=== PATIENT | female | born 1980 | race Caucasian/White ===

== ENCOUNTER 2016-05-12 21:59 | Emergency (ER) | payer MEDICAID ==
[2016-05-12] MEDS ORDERED: Promethazine 25 MG/ML SDV IM ONE (22:27)
[2016-05-12] MEDS ORDERED: Ketorolac 30 MG/ML SDV IM ONE (22:27)
[2016-05-12] MEDS ORDERED: Ketorolac 30 MG/ML SDV ONE (22:32)
--- NOTE | 2016-05-12 22:35 | EDM.PDOC ---
ED HPI GENERAL MEDICAL PROBLEM - General Chief Complaint: Headache Stated Complaint: MIGRAINE Time Seen by Provider: 05/12/16 22:10 Source of Information: Reports: Patient History Limitations: Reports: No limitations - History of Present Illness INITIAL COMMENTS - FREE TEXT/NARRATIVE: According to patient , she has had an attack of migraine for past 24 hrs started last evening, asso with severe photophobia and nausea. No vomiting. Pt is on topamax 100mg daily for prophylaxis. She has taken Ibuprofen and some left over vicodin at 6 pm today with no relief. no blurry vision. No ringing in the ears. No weakness . Onset Date: 05/11/16 Location: Reports: head Quality: Reports: Ache Severity: severe Improves with: Reports: None Worsens with: Reports: None Associated Symptoms: Reports: headaches, nausea/vomiting. Denies: confusion, chest pain, cough, diaphoresis, fever/chills, rash, seizure, shortness of breath , syncope, weakness - Related Data Allergies Allergy/AdvReac Type Severity Reaction Status Date / Time No Known Allergies Allergy Verified 05/12/16 22:13 Home Meds: Home Meds Citalopram [Citalopram HBr] 20 mg PO DAILY 05/21/15 [History] Omeprazole [Prilosec] 20 mg PO DAILY 05/21/15 [History] Topiramate [Topamax] 100 mg PO DAILY 05/21/15 [History] Past Medical History Cardiovascular History: Reports: Aneurysm Gastrointestinal History: Reports: GERD Genitourinary History: Reports: Renal calculus, UTI, recurrent 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: Neurological History: Reports: Cerebral aneurysms, CVA, Migraines, Other (see below) Other Neuro History: 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 Psychiatric History: Reports: Anxiety, Depression - Infectious Disease History Infectious Disease History: Reports: Chicken pox - Past Surgical History HEENT Surgical History: Reports: Other (see below) Other HEENT Surgeries/Procedures: Aneurysm coil GI Surgical History: Reports: None Female Surgical History: Reports: Hysterectomy, Lithotripsy/ESWL - Past Imaging History Past Imaging History: Reports: Other (see below) (last MRI was 6 mos ago) Social & Family History - Family History Family Medical History: Noncontributory - Tobacco Use Smoking Status *Q: Current Every Day Smoker Years of Tobacco use: 15 Packs/Tins Daily: 1 Used Tobacco, but Quit: No Second Hand Smoke Exposure: Yes - Caffeine Use Caffeine Use: Reports: Coffee, Soda Caffeine Use Comment: usually drinks two cups per day. - Alcohol Use Date of Last Drink: 04/24/16 - Recreational Drug Use Recreational Drug Use: No ED ROS GENERAL - Review of Systems Review Of Systems: See Below Constitutional: Denies: fever, chills HEENT: Denies: Sinus problem, Throat pain, Vision change Respiratory: Denies: Shortness of Breath, Cough, Sputum Cardiovascular: Denies: Chest pain, Lightheadedness Endocrine: Denies: fatigue GI/Abdominal: Reports: Nausea. Denies: Abdominal pain, Vomiting : Denies: discharge, dysuria Musculoskeletal: Denies: joint pain, joint swelling Skin: Denies: pruritis, rash Neurological: Reports: Headache. Denies: Confusion, Dizziness, Syncope, Tingling Psychiatric: Denies: Agitation, Anxiety, Confusion, Cravings ED EXAM, GENERAL - Physical Exam Exam: See Below Exam Limited By: No limitations General Appearance: alert, WD/WN, no apparent distress Eye Exam: bilateral eye: EOMI, PERRL Ears: normal external exam, normal canal, hearing grossly normal, normal TMs Ear Exam: bilateral ear: auricle normal, canal normal, TM normal Nose: normal inspection, normal mucosa, no blood Throat/Mouth: Normal inspection, Normal lips, Normal teeth, Normal gums, Normal oropharynx, Normal voice, No airway compromise Head: atraumatic, normocephalic Neck: normal inspection, supple, non-tender, full range of motion Respiratory/Chest: no respiratory distress, lungs clear, normal breath sounds, no accessory muscle use, chest non-tender Cardiovascular: normal peripheral pulses, regular rate, rhythm, no edema, no gallop, no JVD, no murmur, no rub Neurological: alert, oriented, CN II-XII intact, normal cognition, normal gait, normal reflexes, no motor/sensory deficits Psychiatric: normal affect, normal mood Skin Exam: Warm, Intact Course - Vital Signs Text/Narrative:: Pt does have chronic migraine with acute episodes. She did receive toradol 30mg with phenergan 25mg IM in the emergency room. Pt advised to go home and sleep in dark quiet room and the headache should gradually improve. If not better in 4 -6 hrs advised to return to emergency room or followup with her primary care provider in the clinic in [place]. - Orders/Labs/Meds Orders: Active Orders 24 hr Category Date Time Status Ketorolac [Toradol] Med 05/12/16 22:27 Once 30 mg IM ONETIME ONE Promethazine [Phenergan] Med 05/12/16 22:27 Once 25 mg IM ONETIME ONE Departure - Departure Time of Disposition: 10:40 Disposition: Home, Self-Care 01 Condition: fair Clinical Impression: Migraine Forms: ED Department Discharge - Problem List & Annotations (1) Migraine SNOMED Code(s): 34247353 Code(s): G43.909 - MIGRAINE, UNSP, NOT INTRACTABLE, WITHOUT STATUS MIGRAINOSUS Status: Acute Current Visit: No - Problem List Review Problem List Initiated/Reviewed/Updated: Yes - My Orders Last 24 Hours: My Active Orders 05/12/16 22:27 Ketorolac [Toradol] 30 mg IM ONETIME ONE Promethazine [Phenergan] 25 mg IM ONETIME ONE - Assessment/Plan Last 24 Hours: My Active Orders 05/12/16 22:27 Ketorolac [Toradol] 30 mg IM ONETIME ONE Promethazine [Phenergan] 25 mg IM ONETIME ONE Assessment:: Acute migraine attack Plan: Pt does have chronic migraine with acute episodes. She did receive toradol 30mg with phenergan 25mg IM in the emergency room. Pt advised to go home and sleep in dark quiet room and the headache should gradually improve. If not better in 4 -6 hrs advised to return to emergency room or followup with her primary care provider in the clinic in [place].
[2016-05-13 02:21] VITALS: BP 155/101
== END 2016-05-12 22:45 | disposition home or self-care (01) ==
LOC: LB.ED 21:59
DX: G43.909 Migraine, unspecified, not intractable, without status migrainosus (principal); K21.9 Gastro-esophageal reflux disease without esophagitis; F41.9 Anxiety disorder, unspecified; F32.9 Major depressive disorder, single episode, unspecified; F17.210 Nicotine dependence, cigarettes, uncomplicated; Z87.440 Personal history of urinary (tract) infections; Z86.73 Personal history of transient ischemic attack (TIA), and cerebral infarction without residual deficits; Z90.710 Acquired absence of both cervix and uterus
CPT/HCPCS: 96372; 99283; J1885; J2550

== ENCOUNTER 2016-07-03 20:36 | Emergency (ER) | payer MEDICAID ==
[2016-07-03] MEDS ORDERED: Ketorolac 60 MG/2 ML SDV IM ONE (20:50)
[2016-07-03] MEDS ORDERED: Acetaminophen/HYDROcodone 325-5 MG Tab ONE ×2 (21:00→21:33)
[2016-07-03] MEDS ORDERED: Tamsulosin 0.4 MG Cap.ER PO ONE (21:13)
[2016-07-03] MEDS ORDERED: HYDROmorphone 2 MG/ML Syringe ONE (21:13)
[2016-07-03] MEDS ORDERED: HYDROmorphone 2 MG/ML Syringe IM ONE (21:15)
[2016-07-03] MEDS ORDERED: Tamsulosin 0.4 MG Cap.ER ONE (21:15)
--- NOTE | 2016-07-03 21:19 | EDM.PDOC ---
ED HPI GENERAL MEDICAL PROBLEM - General Stated Complaint: Kidney Stone Time Seen by Provider: 07/03/16 20:45 Source of Information: Reports: Patient History Limitations: Reports: No limitations - History of Present Illness INITIAL COMMENTS - FREE TEXT/NARRATIVE: According to patient she has been having left sided flank pain since yesterday evening. Pain was of sudden onset. Pain comes and goes and has move slightly form the left loin into anterior abdomen. No nausea or vomiting. Pt edmondson have medullary sponge kidney disease and has recurrent stones. she did have Ct abdomen in Feb, which showed right renal stone 5mm in size then. No fever or chills. No blood in the urine. No other complaints. she did take toradol 10mg today earlier and pain has not resolved. Onset: sudden Onset Date: 07/02/16 Duration: Waxing/waning Location: Reports: back Quality: Reports: Ache Severity: moderate Improves with: Reports: None Worsens with: Reports: None Associated Symptoms: Denies: confusion, chest pain, cough, diaphoresis, fever/ chills, headaches, nausea/vomiting, seizure, shortness of breath, syncope, weakness Treatments TALLOW REFINER: Reports: Other medication(s) Other Treatments TALLOW REFINER: took a toradol - Related Data Allergies Allergy/AdvReac Type Severity Reaction Status Date / Time No Known Allergies Allergy Verified 05/12/16 22:13 Home Meds: Home Meds Citalopram [Citalopram HBr] 20 mg PO DAILY 05/21/15 [History] Omeprazole [Prilosec] 20 mg PO DAILY 05/21/15 [History] Topiramate [Topamax] 100 mg PO DAILY 05/21/15 [History] Past Medical History Cardiovascular History: Reports: Aneurysm Gastrointestinal History: Reports: GERD Genitourinary History: Reports: Renal calculus, UTI, recurrent 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: Neurological History: Reports: Cerebral aneurysms, CVA, Migraines, Other (see below) Other Neuro History: 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 Psychiatric History: Reports: Anxiety, Depression - Infectious Disease History Infectious Disease History: Reports: Chicken pox - Past Surgical History HEENT Surgical History: Reports: Other (see below) Other HEENT Surgeries/Procedures: Aneurysm coil GI Surgical History: Reports: None Female Surgical History: Reports: Hysterectomy, Lithotripsy/ESWL - Past Imaging History Past Imaging History: Reports: Other (see below) (last MRI was 6 mos ago) Social & Family History - Family History Family Medical History: Noncontributory - Tobacco Use Smoking Status *Q: Current Every Day Smoker Years of Tobacco use: 15 Packs/Tins Daily: 1 Used Tobacco, but Quit: No Second Hand Smoke Exposure: Yes - Caffeine Use Caffeine Use: Reports: Coffee, Soda Caffeine Use Comment: usually drinks two cups per day. - Recreational Drug Use Recreational Drug Use: No ED ROS GENERAL - Review of Systems Review Of Systems: See Below Constitutional: Denies: fever, chills, weakness HEENT: Denies: Ear pain, Hearing loss, Throat pain Respiratory: Denies: Cough, Sputum Cardiovascular: Denies: Chest pain, Lightheadedness GI/Abdominal: Denies: Abdominal pain, Anorexia, Nausea, Vomiting : Reports: frequency. Denies: dysuria, flank pain, hematuria Musculoskeletal: Denies: shoulder pain, joint pain, joint swelling Skin: Denies: pruritis, rash ED EXAM, GENERAL - Physical Exam Exam: See Below Exam Limited By: No limitations General Appearance: alert, WD/WN, mild distress Eye Exam: bilateral eye: EOMI, PERRL Ears: normal external exam, normal canal, hearing grossly normal, normal TMs Ear Exam: bilateral ear: auricle normal, canal normal, TM normal Nose: normal inspection, normal mucosa, no blood Throat/Mouth: Normal inspection, Normal lips, Normal teeth, Normal gums, Normal oropharynx, Normal voice, No airway compromise Head: atraumatic, normocephalic Neck: normal inspection, supple, non-tender, full range of motion Respiratory/Chest: no respiratory distress, lungs clear, normal breath sounds, no accessory muscle use, chest non-tender Cardiovascular: normal peripheral pulses, regular rate, rhythm, no edema, no gallop, no JVD, no murmur, no rub Peripheral Pulses: 2+: radial (R), femoral (L) GI/Abdominal: Normal Bowel Sounds, Soft, Non-Tender, No Organomegaly, No Distention, No Abnormal Bruit, No Mass Back Exam: CVA tenderness (L) Skin Exam: Warm, Dry, Intact, Normal color, No rash Course - Vital Signs Text/Narrative:: Pt does have history of recurrent episode of passing renal stones. she has had 3 CT abdomen in the past, with recent being in Feb which did show 5mm seen on left side. Hence I have not repeated CT KUB today. UA does show trace blood and 5 RBC.She did received toradol 60mg IM and Dilaudid 1mg and flomax 0.4 mg in the emergency room. her pain did improve to 6/10. She is not in acute distress at this point. Hence she has been discharge home on toradol 10mg and to alternate with vicodin every 4 hrs. flomax 0.4 mg daily. If pain not better in 24 hrs advised to followup in the clinic to make sure she is not having obstructive uropathy. - Orders/Labs/Meds Orders: Active Orders 24 hr Category Date Time Status UA W/MICROSCOPIC [URIN] Stat Lab 07/03/16 20:56 Ordered HYDROmorphone [Dilaudid] Med 07/03/16 21:15 Once 1 mg IM ONETIME ONE Tamsulosin [Flomax] Med 07/03/16 21:13 Once 0.4 mg PO ONETIME ONE Medication Orders Hydromorphone HCl (Dilaudid) 1 mg IM ONETIME ONE Stop: 07/03/16 21:16 Tamsulosin HCl (Flomax) 0.4 mg PO ONETIME ONE Stop: 07/03/16 21:14 Meds: Medications Generic Name Dose Route Start Last Admin Trade Name Freq PRN Reason Stop Dose Admin Hydromorphone HCl 1 mg 07/03/16 21:15 Dilaudid IM 07/03/16 21:16 ONETIME ONE Tamsulosin HCl 0.4 mg 07/03/16 21:13 Flomax PO 07/03/16 21:14 ONETIME ONE Discontinued Medications Generic Name Dose Route Start Last Admin Trade Name Freq PRN Reason Stop Dose Admin Ketorolac Tromethamine 60 mg 07/03/16 20:50 07/03/16 20:50 Toradol IM 07/03/16 20:51 60 mg ONETIME ONE Administration Departure - Departure Time of Disposition: 21:30 Disposition: Home, Self-Care 01 Clinical Impression: Ureteric colic - Discharge Information - Problem List & Annotations (1) Ureteric colic SNOMED Code(s): 63505922 Code(s): N23 - UNSPECIFIED RENAL COLIC Status: Acute Current Visit: Yes - Problem List Review Problem List Initiated/Reviewed/Updated: Yes - My Orders Last 24 Hours: My Active Orders 07/03/16 20:56 UA W/MICROSCOPIC [URIN] Stat 07/03/16 21:13 Tamsulosin [Flomax] 0.4 mg PO ONETIME ONE 07/03/16 21:15 HYDROmorphone [Dilaudid] 1 mg IM ONETIME ONE - Assessment/Plan Last 24 Hours: My Active Orders 07/03/16 20:56 UA W/MICROSCOPIC [URIN] Stat 07/03/16 21:13 Tamsulosin [Flomax] 0.4 mg PO ONETIME ONE 07/03/16 21:15 HYDROmorphone [Dilaudid] 1 mg IM ONETIME ONE Assessment:: Ureteric Colic left sided Plan: Pt does have history of recurrent episode of passing renal stones. she has had 3 CT abdomen in the past, with recent being in Feb which did show 5mm seen on left side. Hence I have not repeated CT KUB today. UA does show trace blood and 5 RBC.She did received toradol 60mg IM and Dilaudid 1mg and flomax 0.4 mg in the emergency room. her pain did improve to 6/10. She is not in acute distress at this point. Hence she has been discharge home on toradol 10mg and to alternate with vicodin every 4 hrs. flomax 0.4 mg daily. If pain not better in 24 hrs advised to followup in the clinic to make sure she is not having obstructive uropathy.
[2016-07-03 22:31] VITALS: BP 127/83
== END 2016-07-03 21:40 | disposition home or self-care (01) ==
LOC: LB.ED 20:36
DX: N23 Unspecified renal colic (principal); K21.9 Gastro-esophageal reflux disease without esophagitis; F41.9 Anxiety disorder, unspecified; F32.9 Major depressive disorder, single episode, unspecified; F17.210 Nicotine dependence, cigarettes, uncomplicated; Z90.710 Acquired absence of both cervix and uterus
CPT/HCPCS: 81001; 96372; 99284; A9270; J1170; J1885

== ENCOUNTER 2016-07-30 17:54 | Emergency (ER) | payer MEDICAID ==
[2016-07-30 18:05] VITALS: BP 129/75
[2016-07-30] MEDS ORDERED: HYDROmorphone 2 MG/ML Syringe IM ONE (18:16)
[2016-07-30] MEDS ORDERED: Promethazine 25 MG/ML SDV IM ONE (18:17)
[2016-07-30] MEDS ORDERED: HYDROmorphone 2 MG/ML Syringe ONE (18:19)
[2016-07-30] MEDS ORDERED: Promethazine 25 MG/ML SDV ONE (18:20)
--- NOTE | 2016-07-31 08:20 | EDM.PDOC ---
ED HPI GENERAL MEDICAL PROBLEM - General Chief Complaint: General Stated Complaint: MIGRAINE Time Seen by Provider: 07/30/16 18:00 Source of Information: Reports: Patient History Limitations: Reports: No Limitations - History of Present Illness INITIAL COMMENTS - FREE TEXT/NARRATIVE: Pt has history of chronic migraine headache and she has been under care of the neurologist in [place], [place]. Recently her Topamax has been increased and has less frequent episodes of headache.She claims she has been having throbbing right frontal headache since friday, which has gradually got worse. Rates her headache at 9/10. Has been nauseous, but no vomiting. + photophobia and phonophobia, waited to see if it would get better, and has not. No tunnel vision. No weakness. Treatments INTERFACE DESIGNER: Reports: NSAIDS migraine Pain Score (Numeric/FACES): 8 - Related Data Allergies Allergy/AdvReac Type Severity Reaction Status Date / Time No Known Allergies Allergy Verified 07/30/16 18:04 Home Meds: Home Meds Citalopram [Citalopram HBr] 20 mg PO DAILY 05/21/15 [History] Omeprazole [Prilosec] 20 mg PO DAILY 05/21/15 [History] Topiramate [Topamax] 100 mg PO DAILY 05/21/15 [History] Methylphenidate [Ritalin] 20 mg PO DAILY 07/17/16 [History] Past Medical History Cardiovascular History: Reports: Aneurysm Gastrointestinal History: Reports: GERD Genitourinary History: Reports: Renal Calculus, UTI, Recurrent 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: Neurological History: Reports: Cerebral Aneurysms, CVA, Migraines, Other (See Below) Other Neuro History: 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 Psychiatric History: Reports: Anxiety, Depression - Infectious Disease History Infectious Disease History: Reports: Chicken Pox - Past Surgical History HEENT Surgical History: Reports: Other (See Below) - Past Imaging History Past Imaging History: Reports: Other (See Below) Social & Family History - Family History Family Medical History: Noncontributory - Tobacco Use Smoking Status *Q: Current Every Day Smoker Years of Tobacco use: 15 Packs/Tins Daily: 1 Used Tobacco, but Quit: No Second Hand Smoke Exposure: Yes - Caffeine Use Caffeine Use: Reports: Coffee, Soda Caffeine Use Comment: usually drinks two cups per day. - Recreational Drug Use Recreational Drug Use: No ED ROS GENERAL - Review of Systems Review Of Systems: See Below Constitutional: Denies: Fever, Chills, Diaphoresis HEENT: Denies: Rhinitis, Sinus Problem, Throat Pain, Vision Change Respiratory: Denies: Cough, Sputum Cardiovascular: Denies: Chest Pain, Lightheadedness Endocrine: Denies: Fatigue, High Glucose GI/Abdominal: Reports: Nausea, Vomiting. Denies: Abdominal Pain : Denies: Dysuria, Flank Pain Musculoskeletal: Denies: Joint Pain, Joint Swelling Skin: Denies: Pruritis, Rash Neurological: Reports: Dizziness, Headache, Seizure. Denies: Confusion ED EXAM, GENERAL - Physical Exam Exam: See Below Exam Limited By: No Limitations General Appearance: Alert, WD/WN, Mild Distress Eye Exam: Bilateral Eye: EOMI, PERRL Ears: Normal External Exam, Normal Canal, Hearing Grossly Normal, Normal TMs Ear Exam: Bilateral Ear: Auricle Normal, Canal Normal, TM normal Nose: Normal Inspection, Normal Mucosa, No Blood Throat/Mouth: Normal Inspection, Normal Lips, Normal Teeth, Normal Gums, Normal Oropharynx, Normal Voice, No Airway Compromise Head: Atraumatic, Normocephalic Neck: Normal Inspection, Supple, Non-Tender, Full Range of Motion Respiratory/Chest: No Respiratory Distress, Lungs Clear, Normal Breath Sounds, No Accessory Muscle Use, Chest Non-Tender Cardiovascular: Normal Peripheral Pulses, Regular Rate, Rhythm, No Edema, No Gallop, No JVD, No Murmur, No Rub Neurological: Alert, Oriented, CN II-XII Intact, Normal Cognition, Normal Gait, Normal Reflexes, No Motor/Sensory Deficits Psychiatric: Normal Affect, Normal Mood Course - Vital Signs Text/Narrative:: Pt has had chronic migraine under Neurologist care of Dr. Blackmon. Still having her meds titrated. She did receive dilaudid 2mg and phenergan 25mg Im in the emergency room. Advised to go home and rest. If symptoms worsen return to emergency room other thakkar followup with Dr. Blackmon. Pt does have appointment in 1 month. Last Recorded V/S: Last Vital Signs Temp 99.2 F 07/30/16 17:59 Pulse 78 07/30/16 17:59 Resp 16 07/30/16 17:59 BP 129/75 07/30/16 17:59 Pulse Ox 99 07/30/16 17:59 - Orders/Labs/Meds Meds: Medications Discontinued Medications Generic Name Dose Route Start Last Admin Trade Name Bharati PRN Reason Stop Dose Admin Hydromorphone HCl 2 mg 07/30/16 18:16 07/30/16 18:24 Dilaudid IM 07/30/16 18:17 2 mg ONETIME ONE Administration Hydromorphone HCl Confirm 07/30/16 18:19 Dilaudid Administered 07/30/16 18:20 Dose 2 mg .ROUTE .STK-MED ONE Promethazine HCl 25 mg 07/30/16 18:17 07/30/16 18:24 Phenergan IM 07/30/16 18:18 25 mg ONETIME ONE Administration Promethazine HCl Confirm 07/30/16 18:20 Phenergan Administered 07/30/16 18:21 Dose 25 mg .ROUTE .STK-MED ONE Departure - Departure Time of Disposition: 18:45 Disposition: Home, Self-Care 01 Condition: good Clinical Impression: Acute onset aura migraine - Discharge Information Referrals: PCP,None [Primary Care Provider] - Forms: ED Department Discharge Additional Instructions: Followup with your neurologist in August, you should have an appointment. - Problem List & Annotations (1) Acute onset aura migraine SNOMED Code(s): 7125867 Code(s): G43.109 - MIGRAINE WITH AURA, NOT INTRACTABLE, W/O STATUS MIGRAINOSUS Status: Acute - Problem List Review Problem List Initiated/Reviewed/Updated: Yes - Assessment/Plan Assessment:: Acute migraine Plan: Pt has had chronic migraine under Neurologist care of Dr. Blackmon. Still having her meds titrated. She did receive dilaudid 2mg and phenergan 25mg Im in the emergency room. Advised to go home and rest. If symptoms worsen return to emergency room other thakkar followup with Dr. Blackmon. Pt does have appointment in 1 month.
== END 2016-07-30 18:27 | disposition home or self-care (01) ==
LOC: LB.ED 17:54
DX: G43.109 Migraine with aura, not intractable, without status migrainosus (principal); K21.9 Gastro-esophageal reflux disease without esophagitis; F41.9 Anxiety disorder, unspecified; F32.9 Major depressive disorder, single episode, unspecified; F17.210 Nicotine dependence, cigarettes, uncomplicated; Z87.440 Personal history of urinary (tract) infections; Z87.442 Personal history of urinary calculi; Z79.899 Other long term (current) drug therapy
CPT/HCPCS: 96372; 99283; J1170; J2550

== ENCOUNTER 2016-08-03 22:37 | Emergency (ER) | payer MEDICAID ==
[2016-08-03] MEDS ORDERED: Promethazine 25 MG/ML SDV IM ONE (23:01)
[2016-08-03] MEDS ORDERED: Ketorolac 60 MG/2 ML SDV IM ONE (23:01)
[2016-08-03] MEDS ORDERED: Ketorolac 60 MG/2 ML SDV ONE (23:02)
[2016-08-03] MEDS ORDERED: Promethazine 25 MG/ML SDV ONE (23:04)
--- NOTE | 2016-08-03 23:09 | EDM.PDOC ---
ED HPI GENERAL MEDICAL PROBLEM - General Chief Complaint: General Stated Complaint: Migraine Time Seen by Provider: 08/03/16 22:50 Source of Information: Reports: Patient History Limitations: Reports: No Limitations - History of Present Illness INITIAL COMMENTS - FREE TEXT/NARRATIVE: Pt was seen in the emergency room on 07/31/16 for migraine headache. She did receive dilaudid 2 mg with phenergan 25mg and discharge. pt claims that headache got better and she had a small episode of migraine on 08/01/16 which resolved. pt is here today claiming that she has had headache with nausea and photophobia since yesterday. Has taken her meds and not better. No weakness. No other complaints. Severity: Moderate Improves with: Reports: None Worsens with: Reports: None Associated Symptoms: Reports: Headaches, Nausea/Vomiting. Denies: Confusion, Chest Pain, Cough, Diaphoresis, Fever/Chills, Malaise, Rash, Seizure, Weakness - Related Data Allergies Allergy/AdvReac Type Severity Reaction Status Date / Time No Known Allergies Allergy Verified 08/03/16 22:54 Home Meds: Home Meds Citalopram [Citalopram HBr] 20 mg PO DAILY 05/21/15 [History] Omeprazole [Prilosec] 20 mg PO DAILY 05/21/15 [History] Topiramate [Topamax] 100 mg PO DAILY 05/21/15 [History] Methylphenidate [Ritalin] 20 mg PO DAILY 07/17/16 [History] Past Medical History Cardiovascular History: Reports: Aneurysm Gastrointestinal History: Reports: GERD Genitourinary History: Reports: Renal Calculus, UTI, 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: Neurological History: Reports: Cerebral Aneurysms, CVA, Migraines, Other (See Below) Other Neuro History: 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 Psychiatric History: Reports: Anxiety, Depression - Infectious Disease History Infectious Disease History: Reports: Chicken Pox - Past Surgical History HEENT Surgical History: Reports: Other (See Below) - Past Imaging History Past Imaging History: Reports: Other (See Below) Social & Family History - Family History Family Medical History: Noncontributory - Tobacco Use Smoking Status *Q: Current Every Day Smoker Years of Tobacco use: 15 Packs/Tins Daily: 1 Used Tobacco, but Quit: No Second Hand Smoke Exposure: Yes - Caffeine Use Caffeine Use: Reports: Coffee, Soda Caffeine Use Comment: usually drinks two cups per day. - Recreational Drug Use Recreational Drug Use: No ED ROS GENERAL - Review of Systems Review Of Systems: See Below Constitutional: Denies: Fever, Chills, Malaise HEENT: Reports: Other (photophobia). Denies: Eye Pain, Rhinitis, Sinus Problem , Throat Pain, Throat Swelling Respiratory: Denies: Shortness of Breath, Wheezing, Cough, Sputum Cardiovascular: Denies: Chest Pain, Edema, Lightheadedness GI/Abdominal: Reports: Nausea. Denies: Abdominal Pain, Vomiting : Denies: Dysuria, Frequency Musculoskeletal: Denies: Neck Pain, Shoulder Pain, Joint Pain, Joint Swelling Skin: Denies: Pruritis, Rash ED EXAM, GENERAL - Physical Exam Exam: See Below Exam Limited By: No Limitations General Appearance: Alert, WD/WN, Mild Distress, Other (covering her face against light, but not in severe distress) Eye Exam: Bilateral Eye: EOMI, PERRL Ears: Normal External Exam, Normal Canal, Hearing Grossly Normal, Normal TMs Ear Exam: Bilateral Ear: Auricle Normal, Canal Normal, TM normal Nose: Normal Inspection, Normal Mucosa, No Blood Throat/Mouth: Normal Inspection, Normal Lips, Normal Teeth, Normal Gums, Normal Oropharynx, Normal Voice, No Airway Compromise Head: Atraumatic, Normocephalic Neck: Normal Inspection, Supple, Non-Tender, Full Range of Motion Respiratory/Chest: No Respiratory Distress, Lungs Clear, Normal Breath Sounds, No Accessory Muscle Use, Chest Non-Tender Cardiovascular: Normal Peripheral Pulses, Regular Rate, Rhythm, No Edema, No Gallop, No JVD, No Murmur, No Rub Neurological: Alert, Oriented, CN II-XII Intact, Normal Cognition, Normal Gait, Normal Reflexes, No Motor/Sensory Deficits Course - Vital Signs Text/Narrative:: Pt was just here 3 days ago for migraine headache. She has been frequently visiting emergency room. Today I have given her toradol 60mg Im with phenergan 25mg IM. I have advised patient to call her Neurologist 's office on Friday and see if her medications can be readjusted or get on on some regime for acute migraine attacks, that way her emergency room visits can be prevented. - Orders/Labs/Meds Meds: Medications Discontinued Medications Generic Name Dose Route Start Last Admin Trade Name Bharati PRN Reason Stop Dose Admin Ketorolac Tromethamine 60 mg 08/03/16 23:01 08/03/16 23:07 Toradol IM 08/03/16 23:02 60 mg ONETIME ONE Administration Ketorolac Tromethamine Confirm 08/03/16 23:02 Toradol Administered 08/03/16 23:03 Dose 60 mg .ROUTE .STK-MED ONE Promethazine HCl 25 mg 08/03/16 23:01 08/03/16 23:12 Phenergan IM 08/03/16 23:02 25 mg ONETIME ONE Administration Promethazine HCl Confirm 08/03/16 23:04 Phenergan Administered 08/03/16 23:05 Dose 25 mg .ROUTE .STK-MED ONE Departure - Departure Time of Disposition: 23:20 Disposition: Home, Self-Care 01 Condition: fair Clinical Impression: Migraine - Discharge Information Forms: ED Department Discharge Additional Instructions: Pt was just here 3 days ago for migraine headache in emergency room. She did receive diluadid 2mg with phenergan 25mg IM. Today I have given her toradol 60mg Im with phenergan 25mg IM. I have advised patient to call her Neurologist 's office on Friday and see if her medications can be readjusted or get on on some regime for acute migraine attacks, that way her emergency room visits can be prevented. - Problem List & Annotations (1) Migraine SNOMED Code(s): 96747062 Code(s): G43.909 - MIGRAINE, UNSP, NOT INTRACTABLE, WITHOUT STATUS MIGRAINOSUS Status: Acute Current Visit: No - Problem List Review Problem List Initiated/Reviewed/Updated: Yes - Assessment/Plan Assessment:: Migraine headache Plan: Pt was just here 3 days ago for migraine headache. She has been frequently visiting emergency room. Today I have given her toradol 60mg Im with phenergan 25mg IM. I have advised patient to call her Neurologist 's office on Friday and see if her medications can be readjusted or get on on some regime for acute migraine attacks, that way her emergency room visits can be prevented.
[2016-08-04 00:30] VITALS: BP 120/69
== END 2016-08-03 23:35 | disposition home or self-care (01) ==
LOC: LB.ED 22:37
DX: G43.909 Migraine, unspecified, not intractable, without status migrainosus (principal); K21.9 Gastro-esophageal reflux disease without esophagitis; F41.9 Anxiety disorder, unspecified; F32.9 Major depressive disorder, single episode, unspecified; F17.210 Nicotine dependence, cigarettes, uncomplicated; Z79.899 Other long term (current) drug therapy; Z86.79 Personal history of other diseases of the circulatory system; Z86.69 Personal history of other diseases of the nervous system and sense organs
CPT/HCPCS: 96372; 99283; J1885; J2550

== ENCOUNTER 2016-08-25 19:07 | Emergency (ER) | payer MEDICAID ==
[2016-08-25] MEDS ORDERED: Ketorolac 30 MG/ML SDV IM ONE (19:50)
[2016-08-25] MEDS ORDERED: Promethazine 25 MG/ML SDV IM ONE (19:50)
[2016-08-25] MEDS ORDERED: Ketorolac 30 MG/ML SDV ONE (19:55)
[2016-08-25] MEDS ORDERED: Promethazine 25 MG/ML SDV ONE (19:55)
--- NOTE | 2016-08-25 21:36 | EDM.PDOC ---
ED HPI GENERAL MEDICAL PROBLEM - General Stated Complaint: kidney stones Time Seen by Provider: 08/25/16 19:15 Source of Information: Reports: Patient History Limitations: Reports: No Limitations - History of Present Illness INITIAL COMMENTS - FREE TEXT/NARRATIVE: Pt is a frequent visitor to the emergency room with passing renal stones. 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 no vomiting. Pain is rdiating into her left groin now.no fever or chills. No headache. No abdominal pain. No other complaints. Pt claims she has appointment with the urologist at [facility] for the coming Friday. 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: Neurological History: Reports: Cerebral Aneurysms, CVA, Migraines, Other (See Below) Other Neuro History: 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 Psychiatric History: Reports: Anxiety, Depression - Infectious Disease History Infectious Disease History: Reports: Chicken Pox - Past Surgical History HEENT Surgical History: Reports: Other (See Below) - Past Imaging History Past Imaging History: Reports: Other (See Below) Social & Family History - Family History Family Medical History: Noncontributory - Tobacco Use Smoking Status *Q: Current Every Day Smoker Years of Tobacco use: 15 Packs/Tins Daily: 1 Used Tobacco, but Quit: No Second Hand Smoke Exposure: Yes - Caffeine Use Caffeine Use: Reports: Coffee, Soda Caffeine Use Comment: usually drinks two cups per day. - Recreational Drug Use Recreational Drug Use: No Recreational Drug Type: Reports: Oxycodone ED ROS GENERAL - Review of Systems Review Of Systems: See Below Constitutional: Denies: Fever, Chills HEENT: Denies: Sinus Problem, Throat Pain, Throat Swelling Respiratory: Denies: Shortness of Breath, Cough, Sputum Cardiovascular: Denies: Chest Pain, Lightheadedness GI/Abdominal: Reports: Nausea. Denies: Abdominal Pain, Vomiting : Reports: Flank Pain (left). Denies: Dysuria, Frequency, Hematuria, Urgency , Urinary Retention Musculoskeletal: Denies: Joint Pain, Joint Swelling Skin: Denies: Pruritis, Rash ED EXAM, GENERAL - Physical Exam Exam: See Below Exam Limited By: No Limitations General Appearance: Alert, WD/WN, No Apparent Distress Eye Exam: Bilateral Eye: EOMI, PERRL Ears: Normal External Exam, Normal Canal, Hearing Grossly Normal, Normal TMs Ear Exam: Bilateral Ear: Auricle Normal, Canal Normal, TM normal Nose: Normal Inspection, Normal Mucosa, No Blood Throat/Mouth: Normal Inspection, Normal Lips, Normal Teeth, Normal Gums, Normal Oropharynx, Normal Voice, No Airway Compromise Head: Atraumatic, Normocephalic Neck: Normal Inspection, Supple, Non-Tender, Full Range of Motion Respiratory/Chest: No Respiratory Distress, Lungs Clear, Normal Breath Sounds, No Accessory Muscle Use, Chest Non-Tender Cardiovascular: Normal Peripheral Pulses, Regular Rate, Rhythm, No Edema, No Gallop, No JVD, No Murmur, No Rub GI/Abdominal: Normal Bowel Sounds, Soft, Non-Tender, No Organomegaly, No Distention, No Abnormal Bruit, No Mass, Other (does have vague discomfort on percussion of the left renal angle) Extremities: Normal Inspection, Normal Range of Motion, Non-Tender, Normal Capillary Refill, No Pedal Edema Neurological: Alert, Oriented, CN II-XII Intact, Normal Cognition, Normal Gait, Normal Reflexes, No Motor/Sensory Deficits Course - Vital Signs Text/Narrative:: Pt has had several visits to emergency room with passing stone. She has had 3 Ct KUB in the past with renal stones. She probably is passing a small left uretral stone Hence today she has been empirically treated. She did receive toradol 30mg IM with phenergan 25mg IM. She claims she does have flomax at home. Advised to take flomax every day and drink plenty of fluids. If her symptoms get worse or do not improve in next 24 hrs advised to return to emergency room.Otherwise advised to followup with the urologist this Friday. - Orders/Labs/Meds Labs: Laboratory Tests 08/25/16 Range/Units 19:34 Urine Color Yellow Urine Appearance Clear (CLEAR) Urine pH 6.5 (5.0-8.0) Ur Specific [place] 1.020 (1.003-1.030) Urine Protein Negative (NEGATIVE) mg/dL Urine Glucose (UA) Negative (NEGATIVE) mg/dL Urine Ketones Negative (NEGATIVE) mg/dL Urine Occult Blood Trace-intact H (NEGATIVE) Urine Nitrite Negative (NEGATIVE) Urine Bilirubin Negative (NEGATIVE) Urine Urobilinogen 0.2 (0.2-1.0) E.U./dL Ur Leukocyte Esterase Negative (NEGATIVE) Urine RBC 0-5 H /HPF Urine WBC 0-5 H /HPF Ur Squamous Epith Cells Few /HPF Urine Other Meds: Medications Discontinued Medications Generic Name Dose Route Start Last Admin Trade Name Freq PRN Reason Stop Dose Admin Ketorolac Tromethamine Confirm 08/25/16 19:55 Toradol Administered 08/25/16 19:56 Dose 30 mg .ROUTE .STK-MED ONE Promethazine HCl Confirm 08/25/16 19:55 Phenergan Administered 08/25/16 19:56 Dose 25 mg .ROUTE .STK-MED ONE Departure - Departure Time of Disposition: 19:50 Disposition: Home, Self-Care 01 Condition: Fair Clinical Impression: Ureteric colic - Discharge Information Instructions: Kidney Stones, [id number] Referrals: PCP,None [Primary Care Provider] - Additional Instructions: Drink plenty of fluids (water). Activity as tolerated. Keep appointment with urologist for this Friday. Call with any questions. - Problem List & Annotations (1) Ureteric colic SNOMED Code(s): 90624047 Code(s): N23 - UNSPECIFIED RENAL COLIC Status: Acute Current Visit: Yes - Problem List Review Problem List Initiated/Reviewed/Updated: Yes - Assessment/Plan Assessment:: left ureteric colic Plan: Pt has had several visits to emergency room with passing stone. She has had 3 Ct KUB in the past with renal stones. She probably is passing a small left uretral stone Hence today she has been empirically treated. She did receive toradol 30mg IM with phenergan 25mg IM. She claims she does have flomax at home. Advised to take flomax every day and drink plenty of fluids. If her symptoms get worse or do not improve in next 24 hrs advised to return to emergency room.Otherwise advised to followup with the urologist this Friday.
[2016-08-26 01:52] VITALS: BP 142/74
== END 2016-08-25 19:57 | disposition home or self-care (01) ==
LOC: LB.ED 19:07
DX: N23 Unspecified renal colic (principal); K21.9 Gastro-esophageal reflux disease without esophagitis; F32.9 Major depressive disorder, single episode, unspecified; F41.9 Anxiety disorder, unspecified; F17.210 Nicotine dependence, cigarettes, uncomplicated; Z79.899 Other long term (current) drug therapy
CPT/HCPCS: 81001; 96372; 99284; J1885; J2550

== ENCOUNTER 2016-11-11 19:20 | Emergency (ER) | payer MEDICAID ==
[2016-11-11 19:31] VITALS: BP 131/79
[2016-11-11] MEDS ORDERED: Promethazine 25 MG/ML SDV IM ONE (19:42)
[2016-11-11] MEDS ORDERED: Ketorolac 60 MG/2 ML SDV IM ONE (19:42)
--- NOTE | 2016-11-12 08:59 | EDM.PDOC ---
ED HPI GENERAL MEDICAL PROBLEM - General Chief Complaint: General Stated Complaint: MIGRAINE Time Seen by Provider: 11/11/16 19:40 Source of Information: Reports: Patient History Limitations: Reports: No Limitations - History of Present Illness INITIAL COMMENTS - FREE TEXT/NARRATIVE: This is a 36yo F here for a migraine that she states has lasted since last night. Patient denies any nausea or vomiting or recent illness. No fever or chills. She has frequent migraines and has medications including vicodin but has tried both her triptan and vicodin and they have not helped. Duration: Day(s): Location: Reports: Head Quality: Reports: Ache Severity: Moderate Improves with: Reports: None Worsens with: Reports: None Associated Symptoms: Reports: No Other Symptoms Headache Pain Score (Numeric/FACES): 9 - Related Data Allergies Allergy/AdvReac Type Severity Reaction Status Date / Time No Known Allergies Allergy Verified 08/26/16 01:47 Home Meds: Home Meds Citalopram [Citalopram HBr] 20 mg PO DAILY 05/21/15 [History] Omeprazole [Prilosec] 20 mg PO DAILY 05/21/15 [History] Topiramate [Topamax] 100 mg PO DAILY 05/21/15 [History] Methylphenidate [Ritalin] 20 mg PO DAILY 07/17/16 [History] Past Medical History Cardiovascular History: Reports: Aneurysm Gastrointestinal History: Reports: GERD Genitourinary History: Reports: Renal Calculus, UTI, 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: Neurological History: Reports: Cerebral Aneurysms, CVA, Migraines, Other (See Below) Other Neuro History: 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 Psychiatric History: Reports: Anxiety, Depression - Infectious Disease History Infectious Disease History: Reports: Chicken Pox - Past Surgical History HEENT Surgical History: Reports: Other (See Below) Other HEENT Surgeries/Procedures: Aneurysm coil Female Surgical History: Reports: Hysterectomy - Past Imaging History Past Imaging History: Reports: Other (See Below) Social & Family History - Family History Family Medical History: Noncontributory - Tobacco Use Smoking Status *Q: Current Every Day Smoker Years of Tobacco use: 15 Packs/Tins Daily: 1 Used Tobacco, but Quit: No Second Hand Smoke Exposure: No - Caffeine Use Caffeine Use: Reports: Coffee, Energy Drinks, Soda Caffeine Use Comment: usually drinks two cups per day. - Recreational Drug Use Recreational Drug Use: No Recreational Drug Type: Reports: Oxycodone ED ROS GENERAL - Review of Systems Review Of Systems: ROS reveals no pertinent complaints other than HPI. - Physical Exam Exam: See Below Exam Limited By: No Limitations General Appearance: Alert, WD/WN, Mild Distress Eye Exam: Bilateral Eye: EOMI Ears: Normal External Exam Nose: Normal Inspection Throat/Mouth: Normal Inspection Head Exam: Atraumatic, Normocephalic Neck: Normal Inspection Respiratory/Chest: No Respiratory Distress, Lungs Clear, Normal Breath Sounds Cardiovascular: Normal Peripheral Pulses, Regular Rate, Rhythm GI/Abdominal: Normal Bowel Sounds Neuro Exam (Abbreviated): Alert, Oriented, CN II-XII Intact, Normal Cognition, Normal Gait, Normal Reflexes, No Motor/Sensory Deficits Extremities: Normal Inspection Psychiatric: Normal Affect, Normal Mood Skin Exam: Warm, Dry, Intact Course - Vital Signs Last Recorded V/S: Last Vital Signs Temp 37.1 C 11/11/16 19:35 Pulse 70 11/11/16 19:35 Resp 16 11/11/16 19:35 BP 131/79 11/11/16 19:35 Pulse Ox 100 11/11/16 19:35 - Orders/Labs/Meds Meds: Medications Discontinued Medications Generic Name Dose Route Start Last Admin Trade Name Bharati PRKassandra Reason Stop Dose Admin Ketorolac Tromethamine 60 mg 11/11/16 19:42 11/11/16 19:43 Toradol IM 11/11/16 19:43 60 mg ONETIME ONE Administration Promethazine HCl 25 mg 11/11/16 19:42 11/11/16 19:44 Phenergan IM 11/11/16 19:43 25 mg ONETIME ONE Administration Departure - Departure Time of Disposition: 20:00 Disposition: Home, Self-Care 01 Condition: Good Clinical Impression: Migraine Qualifiers: Migraine type: unspecified Status migrainosus presence: without status migrainosus Intractability: intractable Qualified Code(s): G43.919 - Migraine, unspecified, intractable, without status migrainosus - Discharge Information Referrals: PCP,None [Primary Care Provider] - Forms: ED Department Discharge Additional Instructions: Drink plenty of water and get plenty of rest. Continue all previously prescribed medications as directed. Follow up with regular provider as needed. Call with any questions.
== END 2016-11-11 20:00 | disposition home or self-care (01) ==
LOC: LB.ED 19:20
DX: G43.919 Migraine, unspecified, intractable, without status migrainosus (principal); K21.9 Gastro-esophageal reflux disease without esophagitis; F41.9 Anxiety disorder, unspecified; F32.9 Major depressive disorder, single episode, unspecified; F17.210 Nicotine dependence, cigarettes, uncomplicated; Z87.440 Personal history of urinary (tract) infections; Z86.73 Personal history of transient ischemic attack (TIA), and cerebral infarction without residual deficits; Z90.710 Acquired absence of both cervix and uterus; Z79.899 Other long term (current) drug therapy
CPT/HCPCS: 96372; 99283; J1885; J2550

== ENCOUNTER 2017-05-04 15:10 | Emergency (ER) | payer BC, MEDICAID ==
[2017-05-04] MEDS ORDERED: Sodium Chloride 0.9% 10 ML Syringe FLUSH PRN (15:19)
[2017-05-04] MEDS ORDERED: Ondansetron 4 MG/2 ML SDV IVPUSH ONE (15:23)
[2017-05-04] MEDS ORDERED: Ketorolac 30 MG/ML SDV IVPUSH ONE (15:23)
[2017-05-04] MEDS ORDERED: Sodium Chloride 0.9% 1,000 ML IV SCH (15:30)
[2017-05-04] MEDS ORDERED: HYDROmorphone 2 MG/ML Syringe IVPUSH ONE ×2 (16:11→16:53)
[2017-05-04] MEDS ORDERED: HYDROmorphone 4 MG/ML Syringe ONE (16:25)
[2017-05-04] MEDS ORDERED: Acetaminophen/HYDROcodone 325-5 MG Tab ONE (17:30)
[2017-05-04 17:33] VITALS: BP 118/75
--- NOTE | 2017-05-04 17:34 | EDM.PDOC ---
ED HPI GENERAL MEDICAL PROBLEM - General Chief Complaint: General Stated Complaint: DON'T FEEL WELL Time Seen by Provider: 05/04/17 15:15 Source of Information: Reports: Patient History Limitations: Reports: No Limitations - History of Present Illness INITIAL COMMENTS - FREE TEXT/NARRATIVE: Patient is a 37 year old woman with a history of chronic kidney stones requiring stents at time and a left ureteral stricture. She felt she was passing a stone, so she has been pushing fluids, which has caused her to develop renal colic on the left 11/03 with nausea. No fever or chills or dysuria but she has some nausea. No other complaints. Onset: Today Onset Date: 05/04/17 Onset Time: 12:00 Duration: Hour(s): (3), Getting Worse Location: Reports: Back (Left CVA area.) Quality: Reports: Same as Previous Episode, Stabbing Severity: Severe (11/03) Improves with: Reports: None Worsens with: Reports: None Context: Reports: Other (History of renal colic and left ureteral stricture.) Associated Symptoms: Reports: Nausea/Vomiting Treatments SR. MEDIA MANAGER: Reports: NSAIDS, Other Medication(s) (Hydrocodone.) - Related Data Allergies Allergy/AdvReac Type Severity Reaction Status Date / Time No Known Allergies Allergy Verified 05/04/17 17:21 Home Meds: Home Meds Citalopram [Citalopram HBr] 20 mg PO DAILY 05/21/15 [History] Omeprazole [Prilosec] 20 mg PO DAILY 05/21/15 [History] Topiramate [Topamax] 100 mg PO DAILY 05/21/15 [History] Methylphenidate [Ritalin] 20 mg PO DAILY 07/17/16 [History] Past Medical History Cardiovascular History: Reports: Aneurysm Gastrointestinal History: Reports: GERD Genitourinary History: Reports: Renal Calculus, UTI, Recurrent DYNAMOMETER TESTER History: Reports: Neurological History: Reports: Cerebral Aneurysms, CVA, Migraines, Other (See Below) Other Neuro History: 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 Psychiatric History: Reports: Anxiety, Depression - Infectious Disease History Infectious Disease History: Reports: Chicken Pox - Past Surgical History HEENT Surgical History: Reports: Other (See Below) Other HEENT Surgeries/Procedures: Aneurysm coil Female Surgical History: Reports: Hysterectomy - Past Imaging History Past Imaging History: Reports: Other (See Below) Social & Family History - Family History Family Medical History: Noncontributory - Tobacco Use Smoking Status *Q: Current Every Day Smoker Years of Tobacco use: 15 Packs/Tins Daily: 1 Used Tobacco, but Quit: No Second Hand Smoke Exposure: No - Caffeine Use Caffeine Use: Reports: Coffee, Energy Drinks, Soda Caffeine Use Comment: usually drinks two cups per day. - Recreational Drug Use Recreational Drug Use: No Recreational Drug Type: Reports: Oxycodone ED ROS GENERAL - Review of Systems Review Of Systems: See Below Constitutional: Reports: Decreased Appetite HEENT: Reports: No Symptoms Respiratory: Reports: No Symptoms Cardiovascular: Reports: No Symptoms Endocrine: Reports: No Symptoms GI/Abdominal: Reports: Abdominal Pain, Nausea : Reports: Flank Pain Musculoskeletal: Reports: No Symptoms Skin: Reports: No Symptoms Neurological: Reports: No Symptoms Psychiatric: Reports: No Symptoms Hematologic/Lymphatic: Reports: No Symptoms Immunologic: Reports: No Symptoms ED EXAM, GENERAL - Physical Exam Exam: See Below Exam Limited By: No Limitations General Appearance: Alert, WD/WN, No Apparent Distress Eye Exam: Bilateral Eye: EOMI, Normal Fundi, Normal Inspection Ears: Normal External Exam, Normal Canal, Hearing Grossly Normal, Normal TMs Ear Exam: Bilateral Ear: Auricle Normal, Canal Normal, TM normal Nose: Normal Inspection, Normal Mucosa, No Blood Throat/Mouth: Normal Inspection, Normal Lips, Normal Teeth, Normal Gums, Normal Oropharynx, Normal Voice, No Airway Compromise Head: Atraumatic, Normocephalic Neck: Normal Inspection, Supple, Non-Tender, Full Range of Motion Respiratory/Chest: No Respiratory Distress, Lungs Clear, Normal Breath Sounds, No Accessory Muscle Use, Chest Non-Tender Cardiovascular: Normal Peripheral Pulses, Regular Rate, Rhythm, No Edema, No Gallop, No JVD, No Murmur, No Rub GI/Abdominal: Normal Bowel Sounds, Soft, Non-Tender, No Organomegaly, No Distention, No Abnormal Bruit, No Mass Back Exam: CVA Tenderness (L) Extremities: Normal Inspection, Normal Range of Motion, Non-Tender, Normal Capillary Refill, No Pedal Edema Neurological: Alert, Oriented, CN II-XII Intact, Normal Cognition, Normal Gait, Normal Reflexes, No Motor/Sensory Deficits Psychiatric: Normal Affect, Normal Mood Skin Exam: Warm, Dry, Intact, Normal Color, No Rash Lymphatic: No Adenopathy Course - Vital Signs Text/Narrative:: Uneventful ED course. She got better with IV fluids, IV Toradol and IV Dilaudid and IV Zofran. No stone was seen on CT but there was the ureteral stricture on the left with left kidney hydronephrosis. She will not push fluids since this will likely worsen her situation. She will take Hydrocodone/APAP 5/ 325 mg one every 4 hours for pain and she will follow up with her urologists in [place] who were consulted. They will do surgery soon to fix the stricture. - Orders/Labs/Meds Orders: Active Orders 24 hr Category Date Time Status Abdomen Pelvis wo Cont [CT] Stat Exams 05/04/17 15:21 Taken Sodium Chloride 0.9% [Normal Saline] 1,000 ml Med 05/04/17 15:30 Active IV ASDIRECTED Sodium Chloride 0.9% [Saline Flush] Med 05/04/17 15:19 Active 10 ml FLUSH ASDIRECTED PRN Saline Lock Insert [OM.PC] Routine Oth 05/04/17 15:19 Ordered Medication Orders Sodium Chloride (Normal Saline) 1,000 mls @ 1,000 mls/hr IV ASDIRECTED OLGA LIDIA Sodium Chloride (Saline Flush) 10 ml FLUSH ASDIRECTED PRN PRN Reason: Keep Vein Open Labs: Laboratory Tests 05/04/17 05/04/17 05/04/17 Range/Units 15:45 15:45 15:45 WBC 11.7 H D (4.0-11.0) K/uL RBC 4.62 (3.80-5.80) M/uL Hgb 13.4 (11.5-16.5) g/dL Hct 39.4 (37.0-47.0) % MCV 85 (76-96) fL MCH 29.0 (27.0-32.0) pg MCHC 34.0 (31.0-35.0) g/dL RDW 13.3 (11.0-16.0) % Plt Count 258 (150-500) K/uL MPV 10.0 (6.0-10.0) fL Neut % (Auto) 68.1 (45.0-70.0) % Lymph % (Auto) 23.7 (20.0-40.0) % Winkler % (Auto) 6.9 (3.0-10.0) % Eos % (Auto) 1.1 (1.0-5.0) % Baso % (Auto) 0.2 (0.0-0.5) % Neut # (Auto) 7.95 H (2.00-7.50) K/uL Lymph # (Auto) 2.76 (1.50-4.00) K/uL Winkler # (Auto) 0.81 H (0.20-0.80) K/uL Eos # (Auto) 0.13 (0.04-0.40) K/uL Baso # (Auto) 0.02 (0.02-0.10) K/uL Sodium 139 (136-145) mmol/L Potassium 4.1 (3.5-5.1) mmol/L Chloride 104 (98-107) mmol/L Carbon Dioxide 24.1 (21.0-32.0) mmol/L Anion Gap 15.0 (5.0-15.0) mmol/L BUN 11 (8-26) mg/dL Creatinine 1.06 H (0.55-1.02) mg/dL Est Cr Clr Drug Dosing TNP Estimated GFR (MDRD) 58 L (>60) MLS/MIN BUN/Creatinine Ratio 10.4 (6-25) Glucose 106 H (74-100) mg/dL Calcium 8.4 L (8.5-10.1) mg/dL Total Bilirubin 0.3 D (0.0-1.0) mg/dL AST 14 L (15-37) U/L ALT 13 (12-78) U/L Alkaline Phosphatase 61 (46-116) U/L Total Protein 7.0 (6.4-8.2) g/dL Albumin 3.5 (3.4-5.0) g/dL Globulin 3.5 (2.2-4.2) g/dL Albumin/Globulin Ratio 1.0 (0.8-2.0) Urine Color Yellow Urine Appearance Clear (CLEAR) Urine pH 7.0 (5.0-8.0) Ur Specific Comstock 1.020 (1.003-1.030) Urine Protein Negative (NEGATIVE) mg/dL Urine Glucose (UA) Negative (NEGATIVE) mg/dL Urine Ketones Negative (NEGATIVE) mg/dL Urine Occult Blood Negative (NEGATIVE) Urine Nitrite Negative (NEGATIVE) Urine Bilirubin Negative (NEGATIVE) Urine Urobilinogen 0.2 (0.2-1.0) E.U./dL Ur Leukocyte Esterase Negative (NEGATIVE) Urine RBC Not seen /HPF Urine WBC Not seen /HPF Ur Squamous Epith Cells Few /HPF Meds: Medications Generic Name Dose Route Start Last Admin Trade Name Freq PRN Reason Stop Dose Admin Sodium Chloride 1,000 mls @ 1,000 mls/hr 05/04/17 15:30 Normal Saline IV ASDIRECTED OLGA LIDIA Sodium Chloride 10 ml 05/04/17 15:19 Saline Flush FLUSH ASDIRECTED PRN Keep Vein Open Discontinued Medications Generic Name Dose Route Start Last Admin Trade Name Freq PRN Reason Stop Dose Admin Hydromorphone HCl 1 mg 05/04/17 16:11 Dilaudid IVPUSH 05/04/17 16:12 ONETIME ONE Hydromorphone HCl Confirm 05/04/17 16:25 Dilaudid Administered 05/04/17 16:26 Dose 4 mg .ROUTE .STK-MED ONE Hydromorphone HCl 1 mg 05/04/17 16:53 Dilaudid IVPUSH 05/04/17 16:54 ONETIME ONE Ketorolac Tromethamine 30 mg 05/04/17 15:23 Toradol IVPUSH 05/04/17 15:24 ONETIME ONE Ondansetron HCl 4 mg 05/04/17 15:23 Zofran IVPUSH 05/04/17 15:24 ONETIME ONE Departure - Departure Time of Disposition: 17:41 Disposition: Home, Self-Care 01 Condition: Good Clinical Impression: Ureteral stricture, left, Renal colic on left side - Discharge Information Referrals: PCP,None [Primary Care Provider] - - My Orders Last 24 Hours: My Active Orders 05/04/17 15:19 Sodium Chloride 0.9% [Saline Flush] 10 ml FLUSH ASDIRECTED PRN Saline Lock Insert [OM.PC] Routine 05/04/17 15:21 Abdomen Pelvis wo Cont [CT] Stat 05/04/17 15:30 Sodium Chloride 0.9% [Normal Saline] 1,000 ml IV ASDIRECTED - Assessment/Plan Last 24 Hours: My Active Orders 05/04/17 15:19 Sodium Chloride 0.9% [Saline Flush] 10 ml FLUSH ASDIRECTED PRN Saline Lock Insert [OM.PC] Routine 05/04/17 15:21 Abdomen Pelvis wo Cont [CT] Stat 05/04/17 15:30 Sodium Chloride 0.9% [Normal Saline] 1,000 ml IV ASDIRECTED
--- NOTE | 2017-05-04 23:29 | CT ---
DATE OF SERVICE: 05/04/2017 CLINICAL DATA: Renal colic. UNENHANCED ABDOMEN AND PELVIC CT: Multislice acquisition through the abdomen and pelvis without IV or oral contrast was performed. Comparison is made to a prior abdomen and pelvic CT dated 03/24/2016. The lung bases are clear. The unenhanced liver appears normal. The gallbladder appears normal. The spleen appears normal. The pancreas appears normal. The right and left adrenals appear normal. There is atrophy of the left kidney. There is also mild perinephric fat stranding on the left. There are calcifications in the renal pyramids bilaterally consistent with medullary sponge kidney. There is hydronephrosis and hydroureter of the left ureter down to the level of the mid pelvis. The distal left ureter is normal caliber. I do not see evidence of a ureteral calculi. No hydronephrosis or hydroureter on the right. The bladder is partially fluid filled and appears normal. The patient is status post hysterectomy. There are low density lesions in both ovaries consistent with bilateral ovarian cysts. The appendix is not dilated. No evidence of appendicitis. No free air. No free fluid. No dilated loops of bowel. There are nonspecific periaortic nodes. There are nonspecific mesenteric nodes. There is an umbilical hernia containing fat. No aortic aneurysm. IMPRESSION: Hydronephrosis and hydroureter of the left proximal ureter. The distal ureter is normal caliber. No evidence of ureteral calculi. A ureteral stricture or possibly neoplasm involving the ureter should be considered. Urologic consolidation is recommended. Other findings as discussed above. [id number] [facility]
== END 2017-05-04 17:06 | disposition home or self-care (01) ==
LOC: LB.ED 15:10
DX: N13.1 Hydronephrosis with ureteral stricture, not elsewhere classified (principal); N23 Unspecified renal colic; K21.9 Gastro-esophageal reflux disease without esophagitis; F41.9 Anxiety disorder, unspecified; F32.9 Major depressive disorder, single episode, unspecified; F17.210 Nicotine dependence, cigarettes, uncomplicated; Z79.899 Other long term (current) drug therapy
CPT/HCPCS: 36415; 74176; 80053; 81001; 85025; 96374; 96375; 96376; 99284-25; A9270-GY; J1170; J1885; J2405; J7040

== ENCOUNTER 2017-06-16 16:39 | Emergency (ER) | payer BC, MEDICAID | END 2017-06-16 16:44 | disposition left against medical advice (07) | LOC: LB.ED 16:39 | DX: Z53.21 Procedure and treatment not carried out due to patient leaving prior to being seen by health care provider (principal) ==

== ENCOUNTER 2017-07-24 21:20 | Emergency (ER) | payer BC ==
[2017-07-24] MEDS ORDERED: Acetaminophen/oxyCODONE 325-5 MG Tab ONE (21:30)
--- NOTE | 2017-08-06 11:43 | EDM.PDOC ---
ED HPI GENERAL MEDICAL PROBLEM - General Chief Complaint: General Stated Complaint: KIDNEYS HURT Time Seen by Provider: 07/24/17 21:25 Source of Information: Reports: Patient History Limitations: Reports: No Limitations - History of Present Illness INITIAL COMMENTS - FREE TEXT/NARRATIVE: This is a 37yo F here for Onset: Sudden Duration: Hour(s):, Chronic, Intermittent Location: Reports: Back Quality: Reports: Ache, Stabbing Severity: Severe Improves with: Reports: None Worsens with: Reports: None Treatments COMMERCIAL RELIEF DRIVER: Reports: Other (see below) Other Treatments COMMERCIAL RELIEF DRIVER: Hydrocodone 5/325 - Related Data Allergies Allergy/AdvReac Type Severity Reaction Status Date / Time No Known Allergies Allergy Verified 05/04/17 17:21 Home Meds: Home Meds Omeprazole [Prilosec] 20 mg PO DAILY 05/21/15 [History] Topiramate [Topamax] 100 mg PO DAILY 05/21/15 [History] Past Medical History Cardiovascular History: Reports: Aneurysm Gastrointestinal History: Reports: GERD Genitourinary History: Reports: Renal Calculus, UTI, Recurrent 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 DIES 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: Neurological History: Reports: Cerebral Aneurysms, CVA, Migraines, Other (See Below) Other Neuro History: 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 ED ROS GENERAL - Review of Systems Review Of Systems: ROS reveals no pertinent complaints other than HPI. ED EXAM, RENAL/ - Physical Exam Exam: See Below Exam Limited By: No Limitations General Appearance: Alert, WD/WN, Moderate Distress Eye Exam: Bilateral Eye: EOMI, PERRL Ears: Normal External Exam Nose: Normal Inspection Throat/Mouth: Normal Inspection Head: Atraumatic, Normocephalic Neck: Normal Inspection, Supple, Non-Tender Respiratory/Chest: No Respiratory Distress, Lungs Clear Cardiovascular: Normal Peripheral Pulses, Regular Rate, Rhythm GI/Abdominal: Normal Bowel Sounds, Soft, Non-Tender, Other (left flank tenderness) Neurological: Alert, Oriented, CN II-XII Intact Skin Exam: Warm, Dry, Intact Course - Orders/Labs/Meds Meds: Medications Discontinued Medications Generic Name Dose Route Start Last Admin Trade Name Bharati PRN Reason Stop Dose Admin Oxycodone/Acetaminophen 10 tab 07/24/17 21:30 Percocet 325-5 Mg .ROUTE 07/24/17 21:31 .STK-MED ONE Departure - Departure Time of Disposition: 21:50 Disposition: Home, Self-Care 01 Condition: Undetermined Clinical Impression: Renal calculi - Discharge Information Instructions: Renal Colic, [id number], Kidney Stones, [id number] Referrals: PCP,None [Primary Care Provider] - Forms: ED Department Discharge Additional Instructions: Take Oxycodone 5 1 tab every 4 hours for pain as needed. If pain not controlled follow up with Dr Dsouza in the clinic or return to ER. Follow up with [facility] in [facility] Patient does have an appointment with Nephrology for stent this week.
== END 2017-07-24 21:50 | disposition home or self-care (01) ==
LOC: LB.ED 21:20
DX: N20.0 Calculus of kidney (principal); K21.9 Gastro-esophageal reflux disease without esophagitis; Z79.899 Other long term (current) drug therapy
CPT/HCPCS: 99283; A9270-GY

== ENCOUNTER 2018-05-04 16:12 | Emergency (ER) | payer BC ==
--- NOTE | 2018-05-11 10:18 | PCM.SN ---
- Free Text/Narrative Note: Patient NEHEMIAS; seen in clinic.
== END 2018-05-04 16:30 ==
LOC: LB.ED 16:12
DX: Z13.9 Encounter for screening, unspecified (principal)

== ENCOUNTER 2018-06-22 19:00 | Emergency (ER) | payer BC ==
[2018-06-22] MEDS ORDERED: Acetaminophen/oxyCODONE 325-5 MG Tab ONE (19:10)
[2018-06-22] MEDS ORDERED: Ondansetron 4 MG Tab.DIS ONE (19:10)
[2018-06-22 19:37] VITALS: BP 118/75
--- NOTE | 2018-06-23 08:45 | EDM.PDOC ---
ED HPI GENERAL MEDICAL PROBLEM - General Chief Complaint: Genitourinary Problem Stated Complaint: KIDNEY STONES Time Seen by Provider: 06/22/18 19:30 Source of Information: Reports: Patient History Limitations: Reports: No Limitations - History of Present Illness INITIAL COMMENTS - FREE TEXT/NARRATIVE: This is a 38yo F here for left flank pain. She has had this pain many times over the past few years. She has a history of chronic renal calculi and has seen Urology and Nephrology. They have tried supplementation and other forms of management. They do not recommend surgical intervention at this time. She has had bouts of pain and flank pain frequently. Onset: Sudden Duration: Hour(s): Location: Reports: Back Improves with: Reports: None Worsens with: Reports: Movement Associated Symptoms: Reports: No Other Symptoms Left Flank Pain Score (Numeric/FACES): 9 - Related Data Allergies Allergy/AdvReac Type Severity Reaction Status Date / Time No Known Allergies Allergy Verified 06/22/18 19:33 Home Meds: Home Meds Omeprazole [Prilosec] 20 mg PO DAILY 05/21/15 [History] Topiramate [Topamax] 100 mg PO DAILY PRN 05/21/15 [History] Potassium Citrate 1 tab PO TID 06/22/18 [History] Past Medical History Cardiovascular History: Reports: Aneurysm Gastrointestinal History: Reports: GERD Genitourinary History: Reports: Renal Calculus, UTI, Recurrent 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: Musculoskeletal History: Reports: Back Pain, Chronic Neurological History: Reports: Cerebral Aneurysms, CVA, Migraines, Other (See Below) Other Neuro History: 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 Psychiatric History: Reports: Anxiety, Depression - Infectious Disease History Infectious Disease History: Reports: Chicken Pox - Past Surgical History HEENT Surgical History: Reports: Other (See Below) Other HEENT Surgeries/Procedures: Aneurysm coil Female Surgical History: Reports: Hysterectomy - Past Imaging History Past Imaging History: Reports: Other (See Below) Social & Family History - Family History Family Medical History: Noncontributory - Tobacco Use Smoking Status *Q: Current Every Day Smoker Years of Tobacco use: 25 Packs/Tins Daily: 1 Used Tobacco, but Quit: No Second Hand Smoke Exposure: No - Caffeine Use Caffeine Use: Reports: Coffee, Energy Drinks, Soda Caffeine Use Comment: usually drinks two cups per day. - Recreational Drug Use Recreational Drug Use: No ED ROS GENERAL - Review of Systems Review Of Systems: ROS reveals no pertinent complaints other than HPI. ED EXAM, RENAL/ - Physical Exam Exam: See Below Exam Limited By: No Limitations General Appearance: Alert, WD/WN, Moderate Distress Eye Exam: Bilateral Eye: EOMI, PERRL Ears: Normal External Exam Nose: Normal Inspection Throat/Mouth: Normal Inspection Head: Atraumatic, Normocephalic Neck: Normal Inspection Respiratory/Chest: No Respiratory Distress, Lungs Clear, Normal Breath Sounds Cardiovascular: Normal Peripheral Pulses, Regular Rate, Rhythm GI/Abdominal: Normal Bowel Sounds Back Exam: CVA Tenderness (L) Extremities: Normal Inspection Neurological: Alert, Oriented, CN II-XII Intact, Normal Reflexes Course - Vital Signs Last Recorded V/S: Last Vital Signs Temp 37.7 C 06/22/18 19:25 Pulse 95 06/22/18 19:25 Resp 20 06/22/18 19:25 BP 118/75 06/22/18 19:25 Pulse Ox 97 06/22/18 19:25 Departure - Departure Time of Disposition: 19:50 Disposition: Home, Self-Care 01 Condition: Good Clinical Impression: Flank pain, chronic, Acute flank pain - Discharge Information Instructions: Acetaminophen; Oxycodone tablets, Ondansetron oral dissolving tablet Referrals: PCP,None [Primary Care Provider] - Forms: ED Department Discharge Additional Instructions: Take provided Zofran as directed: 1 tablet dissolve under tongue every 6 hours as needed for nausea. Also take provided Percocet as directed: 1 tablet by mouth every 4 hours as needed for pain. Drink plenty of fluids and get plenty of rest. Diet and activity as tolerated. Should symptoms worsen or persist be seen in clinic tomorrow for further evaluation. Follow up with urologist and regular provider as needed. Call with any questions. - Problem List & Annotations (1) Renal calculi SNOMED Code(s): 06589392 Code(s): N20.0 - CALCULUS OF KIDNEY Status: Acute (2) Recurrent kidney stones SNOMED Code(s): 13753476, 05546180 Code(s): N20.0 - CALCULUS OF KIDNEY Status: Chronic (3) Acute flank pain SNOMED Code(s): 042486210, 797816013 Code(s): R10.9 - UNSPECIFIED ABDOMINAL PAIN Status: Acute (4) Flank pain, chronic SNOMED Code(s): 840921532 Code(s): R10.9 - UNSPECIFIED ABDOMINAL PAIN; G89.29 - OTHER CHRONIC PAIN Status: Chronic - Problem List Review Problem List Initiated/Reviewed/Updated: Yes - Assessment/Plan Plan: Counseled on supportive care and pain management. Discussed close monitoring and management. F/u as directed in ER or clinic as needed if symptoms persist or worsen. Patient to f/u with Nephrology or Urologist as directed.
== END 2018-06-22 19:42 | disposition home or self-care (01) ==
LOC: LB.ED 19:00
DX: R10.9 Unspecified abdominal pain (principal); G89.29 Other chronic pain; F17.210 Nicotine dependence, cigarettes, uncomplicated; Z79.899 Other long term (current) drug therapy
CPT/HCPCS: 99283; A9270

== ENCOUNTER 2018-08-20 06:54 | Emergency (ER) | payer BC ==
[2018-08-20] MEDS ORDERED: Acetaminophen/HYDROcodone 325-5 MG Tab ONE (08:00)
--- NOTE | 2018-08-20 09:38 | EDM.PDOC ---
ED HPI GENERAL MEDICAL PROBLEM - General Chief Complaint: General Stated Complaint: KIDNEY STONES Time Seen by Provider: 08/20/18 07:28 Source of Information: Reports: Patient History Limitations: Reports: No Limitations - History of Present Illness INITIAL COMMENTS - FREE TEXT/NARRATIVE: This is a 38yo F here for flank pain. She has had this frequently in the past and has another appointment to see Urology and Nephrology in a few weeks. Patient states her pain is 10/10. She is able to urinate. Onset: Today Duration: Hour(s): Location: Reports: Back Quality: Reports: Ache Severity: Severe Improves with: Reports: None Worsens with: Reports: None - Related Data Allergies Allergy/AdvReac Type Severity Reaction Status Date / Time No Known Allergies Allergy Verified 08/20/18 07:08 Home Meds: Home Meds Omeprazole [Prilosec] 20 mg PO DAILY 05/21/15 [History] Topiramate [Topamax] 100 mg PO DAILY PRN 05/21/15 [History] Potassium Citrate 1 tab PO TID 06/22/18 [History] Past Medical History Cardiovascular History: Reports: Aneurysm Gastrointestinal History: Reports: GERD Genitourinary History: Reports: Renal Calculus, UTI, 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: Musculoskeletal History: Reports: Back Pain, Chronic Neurological History: Reports: Cerebral Aneurysms, CVA, Migraines, Other (See Below) Other Neuro History: 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 ED ROS GENERAL - Review of Systems Review Of Systems: ROS reveals no pertinent complaints other than HPI. ED EXAM, GENERAL - Physical Exam Exam: See Below Exam Limited By: No Limitations General Appearance: Alert, WD/WN, Moderate Distress Eye Exam: Bilateral Eye: EOMI, PERRL Ears: Normal External Exam Respiratory/Chest: No Respiratory Distress Cardiovascular: Normal Peripheral Pulses Extremities: Normal Inspection Neurological: Alert, Oriented, CN II-XII Intact Skin Exam: Warm, Dry, Intact Course - Orders/Labs/Meds Labs: Laboratory Tests 08/20/18 08/20/18 08/20/18 Range/Units 07:48 07:48 07:48 WBC 9.8 D (4.0-11.0) K/uL RBC 4.72 (3.80-5.80) M/uL Hgb 13.9 (11.5-16.5) g/dL Hct 41.1 (37.0-47.0) % MCV 87 (76-96) fL MCH 29.4 (27.0-32.0) pg MCHC 33.8 (31.0-35.0) g/dL RDW 13.7 (11.0-16.0) % Plt Count 237 (150-500) K/uL MPV 9.6 (6.0-10.0) fL Neut % (Auto) 67.9 (45.0-70.0) % Lymph % (Auto) 23.3 (20.0-40.0) % [place] % (Auto) 7.2 (3.0-10.0) % Eos % (Auto) 1.3 (1.0-5.0) % Baso % (Auto) 0.3 (0.0-0.5) % Neut # (Auto) 6.67 (2.00-7.50) K/uL Lymph # (Auto) 2.29 (1.50-4.00) K/uL [place] # (Auto) 0.71 (0.20-0.80) K/uL Eos # (Auto) 0.13 (0.04-0.40) K/uL Baso # (Auto) 0.03 (0.02-0.10) K/uL Sodium 138 (136-145) mmol/L Potassium 4.3 (3.5-5.1) mmol/L Chloride 103 (98-107) mmol/L Carbon Dioxide 24.2 (21.0-32.0) mmol/L Anion Gap 15.1 H (5.0-15.0) mmol/L BUN 12 (8-26) mg/dL Creatinine 1.11 H (0.55-1.02) mg/dL Est Cr Clr Drug Dosing TNP Estimated GFR (MDRD) 54 L (>60) MLS/MIN BUN/Creatinine Ratio 10.8 (6-25) Glucose 101 H (74-100) mg/dL Calcium 8.9 (8.5-10.1) mg/dL Urine Color Yellow Urine Appearance Clear (CLEAR) Urine pH 7.0 (5.0-8.0) Ur Specific [place] 1.015 (1.003-1.030) Urine Protein Negative (NEGATIVE) mg/dL Urine Glucose (UA) Negative (NEGATIVE) mg/dL Urine Ketones Negative (NEGATIVE) mg/dL Urine Occult Blood Trace-intact H (NEGATIVE) Urine Nitrite Negative (NEGATIVE) Urine Bilirubin Negative (NEGATIVE) Urine Urobilinogen 0.2 (0.2-1.0) E.U./dL Ur Leukocyte Esterase Negative (NEGATIVE) Urine RBC 0-5 H /HPF Urine WBC Not seen /HPF Departure - Departure Time of Disposition: 09:00 Disposition: Home, Self-Care 01 Condition: Fair Clinical Impression: Renal calculus, Recurrent kidney stones, Renal colic on left side, Medullary sponge kidney, Flank pain, chronic, Acute flank pain - Discharge Information Instructions: Kidney Stones, [id number] Referrals: PCP,Unknown [Primary Care Provider] - Forms: ED Department Discharge Additional Instructions: Use strainer you have at home to strain urine for kidney stones. Take Hydrocodone 5/325mg every 6 hours as needed for pain. Follow up in 2 weeks in [facility] for Renal US as previously scheduled. Return to clinic or ER if symptoms increase or do not improve. - Problem List & Annotations (1) Renal colic on left side SNOMED Code(s): 5243153 Code(s): N23 - UNSPECIFIED RENAL COLIC Status: Acute Current Visit: Yes (2) Renal calculi SNOMED Code(s): 13720959 Code(s): N20.0 - CALCULUS OF KIDNEY Status: Acute Current Visit: Yes (3) Medullary sponge kidney SNOMED Code(s): 218473676 Code(s): Q61.5 - MEDULLARY CYSTIC KIDNEY Status: Acute Current Visit: Yes (4) Flank pain, chronic SNOMED Code(s): 755781799 Code(s): R10.9 - UNSPECIFIED ABDOMINAL PAIN; G89.29 - OTHER CHRONIC PAIN Status: Chronic Current Visit: Yes (5) Acute flank pain SNOMED Code(s): 557167328, 271546498 Code(s): R10.9 - UNSPECIFIED ABDOMINAL PAIN Status: Acute Current Visit: Yes (6) Lower back pain SNOMED Code(s): 114202785 Code(s): M54.5 - LOW BACK PAIN Status: Acute Current Visit: No Onset Date: ~03/24/16 Annotation/Comment:: 03/24/16 - Lower back/pelvic pain - Problem List Review Problem List Initiated/Reviewed/Updated: Yes - Assessment/Plan Plan: Patient counseled on close monitoring and f/u with Nephro and Urology. Records to be sent to us. Discussed f/u renal U/S to be sent as well. Counseled on supportive and conservative care and rtc as needed.
== END 2018-08-20 08:17 | disposition home or self-care (01) ==
LOC: LB.ED 06:54
DX: N20.0 Calculus of kidney (principal); N23 Unspecified renal colic; Q61.5 Medullary cystic kidney; K21.9 Gastro-esophageal reflux disease without esophagitis; Z86.73 Personal history of transient ischemic attack (TIA), and cerebral infarction without residual deficits; Z79.899 Other long term (current) drug therapy
CPT/HCPCS: 36415; 80048; 81001; 85025; 99283; A9270-GY

== ENCOUNTER 2018-09-09 11:41 | Emergency (ER) | payer BC ==
--- NOTE | 2018-09-09 12:02 | EDM.PDOC ---
ED HPI GENERAL MEDICAL PROBLEM - General Chief Complaint: Flank Pain Stated Complaint: kidney stone Time Seen by Provider: 09/09/18 11:50 Source of Information: Reports: Patient, RN History Limitations: Reports: No Limitations - History of Present Illness INITIAL COMMENTS - FREE TEXT/NARRATIVE: 38 yr female presents with acute kidney/flank pain. States she had this a couple weeks ago and was scheduled to go to the lead level designer, but she is between jobs and no medical insurance at this time. States pain just started and was told in past, she has many stones to the kidneys. She has noted hematuria and pain is 9/10. She has had Flomax in the past and Hydrocodone for the pain with relief in a couple days. 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: Musculoskeletal History: Reports: Back Pain, Chronic Neurological History: Reports: Cerebral Aneurysms, CVA, Migraines, Other (See Below) Other Neuro History: 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 ED ROS GENERAL - Review of Systems Review Of Systems: See Below Constitutional: Reports: No Symptoms HEENT: Reports: No Symptoms Respiratory: Reports: No Symptoms Cardiovascular: Reports: No Symptoms Endocrine: Reports: No Symptoms GI/Abdominal: Reports: No Symptoms : Reports: Flank Pain Musculoskeletal: Reports: No Symptoms Skin: Reports: No Symptoms Neurological: Reports: No Symptoms Psychiatric: Reports: No Symptoms ED EXAM, RENAL/ - Physical Exam Exam: See Below Exam Limited By: No Limitations General Appearance: Alert, No Apparent Distress Ears: Hearing Grossly Normal Nose: Normal Inspection Throat/Mouth: Normal Inspection, Normal Voice, No Airway Compromise Head: Atraumatic, Normocephalic Neck: Normal Inspection, Supple, Non-Tender Respiratory/Chest: No Respiratory Distress, Lungs Clear, Normal Breath Sounds Cardiovascular: Normal Peripheral Pulses, Regular Rate, Rhythm GI/Abdominal: Normal Bowel Sounds, Soft Extremities: Normal Inspection, No Pedal Edema Neurological: Alert, Oriented, Normal Cognition Psychiatric: Normal Affect, Normal Mood Skin Exam: Warm, Dry, Normal Color Lymphatic: No Adenopathy Course - Orders/Labs/Meds Labs: Laboratory Tests 09/09/18 09/09/18 09/09/18 Range/Units 12:00 12:00 12:50 WBC 10.3 (4.0-11.0) K/uL RBC 4.81 (3.80-5.80) M/uL Hgb 14.3 (11.5-16.5) g/dL Hct 42.0 (37.0-47.0) % MCV 87 (76-96) fL MCH 29.7 (27.0-32.0) pg MCHC 34.0 (31.0-35.0) g/dL RDW 13.6 (11.0-16.0) % Plt Count 239 (150-500) K/uL MPV 9.9 (6.0-10.0) fL Neut % (Auto) 67.8 (45.0-70.0) % Lymph % (Auto) 24.1 (20.0-40.0) % [place] % (Auto) 6.6 (3.0-10.0) % Eos % (Auto) 1.3 (1.0-5.0) % Baso % (Auto) 0.2 (0.0-0.5) % Neut # (Auto) 6.95 (2.00-7.50) K/uL Lymph # (Auto) 2.47 (1.50-4.00) K/uL [place] # (Auto) 0.68 (0.20-0.80) K/uL Eos # (Auto) 0.13 (0.04-0.40) K/uL Baso # (Auto) 0.02 (0.02-0.10) K/uL Sodium 142 (136-145) mmol/L Potassium 3.8 (3.5-5.1) mmol/L Chloride 105 (98-107) mmol/L Carbon Dioxide 26.1 (21.0-32.0) mmol/L Anion Gap 14.7 (5.0-15.0) mmol/L BUN 12 (8-26) mg/dL Creatinine 0.97 (0.55-1.02) mg/dL Est Cr Clr Drug Dosing TNP Estimated GFR (MDRD) > 60 (>60) MLS/MIN BUN/Creatinine Ratio 12.4 (6-25) Glucose 119 H (74-100) mg/dL Calcium 8.7 (8.5-10.1) mg/dL Urine Color Yellow Urine Appearance Clear (CLEAR) Urine pH 6.5 (5.0-8.0) Ur Specific [place] 1.025 (1.003-1.030) Urine Protein Negative (NEGATIVE) mg/dL Urine Glucose (UA) Negative (NEGATIVE) mg/dL Urine Ketones Negative (NEGATIVE) mg/dL Urine Occult Blood Trace-intact H (NEGATIVE) Urine Nitrite Negative (NEGATIVE) Urine Bilirubin Negative (NEGATIVE) Urine Urobilinogen 0.2 (0.2-1.0) E.U./dL Ur Leukocyte Esterase Negative (NEGATIVE) Urine RBC 0-5 H /HPF Urine WBC 0-5 H /HPF Ur Squamous Epith Cells Few /HPF Meds: Medications Discontinued Medications Generic Name Dose Route Start Last Admin Trade Name Bharati PRN Reason Stop Dose Admin Hydrocodone Bitart/Acetaminophen Confirm 09/09/18 12:55 [place] 325-10 Mg Administered 09/09/18 12:56 Dose 1 tab .ROUTE .STK-MED ONE Ketorolac Tromethamine 60 mg 09/09/18 12:11 Toradol IM 09/09/18 12:12 ONETIME ONE Ketorolac Tromethamine Confirm 09/09/18 12:19 Toradol Administered 09/09/18 12:20 Dose 60 mg .ROUTE .STK-MED ONE - Re-Assessments/Exams Free Text/Narrative Re-Assessment/Exam: 09/09/18 16:53 LE Labs for CBC, BMP and U/A completed and reviewed with pt. Hematuria noted. Recommend follow-up with nephrology as scheduled. Pt is waiting for insurance to start before this visit. U/S to be scheduled for pt. Recurrent renal calculi with flank pain and hematuria. Recommend to start Flomax. Toradol 60 mg IM given X 1 and Hydrocodone/APAP 10 mg PO given. Rx for Vicoden 5mg PO 1-2 tablets every 6 hr prn and disp # 20 tab. RTC or ER if symptoms persist or worsen. Pt is voiding well and afebrile. Pain improved. Departure - Departure Time of Disposition: 13:37 Disposition: Home, Self-Care 01 Clinical Impression: Acute flank pain - Discharge Information *PRESCRIPTION DRUG MONITORING PROGRAM REVIEWED*: Not Applicable *COPY OF PRESCRIPTION DRUG MONITORING REPORT IN PATIENT JENNIFER: Not Applicable Instructions: Kidney Stones, [id number] Referrals: PCP,None [Primary Care Provider] - Forms: ED Department Discharge Additional Instructions: Take Hydrocodone 5/325 one to two tabs every 6 hours as needed for pain. Follow up with Res Habilitation Assistant in [facility] - Assessment/Plan Plan: Recommend follow-up with nephrology as scheduled. Pt is waiting for insurance to start before this visit. U/S to be scheduled for pt. Recurrent renal calculi with flank pain and hematuria. Recommend to start Flomax. Toradol 60 mg IM given X 1 and Hydrocodone/APAP 10 mg PO given. Rx for Vicoden 5mg PO 1-2 tablets every 6 hr prn and disp # 20 tab. RTC or ER if symptoms persist or worsen. Pt is voiding well and afebrile. Pain improved.
[2018-09-09] MEDS ORDERED: Ketorolac 60 MG/2 ML SDV IM ONE (12:11)
[2018-09-09] MEDS ORDERED: Ketorolac 60 MG/2 ML SDV ONE (12:19)
[2018-09-09] MEDS ORDERED: Acetaminophen/HYDROcodone 325-10 MG Tab ONE (12:55)
== END 2018-09-09 13:36 | disposition home or self-care (01) ==
LOC: LB.ED 11:41
DX: R10.9 Unspecified abdominal pain (principal); R31.9 Hematuria, unspecified; K21.9 Gastro-esophageal reflux disease without esophagitis; Z79.899 Other long term (current) drug therapy; Z87.442 Personal history of urinary calculi; Z86.73 Personal history of transient ischemic attack (TIA), and cerebral infarction without residual deficits
CPT/HCPCS: 36415; 80048; 81001; 85025; 96372; 99283; A9270

== ENCOUNTER 2018-10-04 19:50 | Emergency (ER) | payer BC, OTHER ==
[2018-10-04] MEDS ORDERED: Acetaminophen/HYDROcodone 325-5 MG Tab ONE (21:00)
[2018-10-05 00:45] VITALS: BP 113/52; PULSE 89
--- NOTE | 2018-10-05 02:31 | ER ---
HPI: A 38-year-old lady here with complaints of flank pain, mostly involving the left side. She states that this has been ongoing for a couple of days. She does have ongoing history of kidney stones. She tells me that she is planning on seeing a urologist and a oracle database manager this coming week in [place]. The patient states she has had episodes for the last 2 years on an ongoing basis. She did have what sounds like lithotripsy on 1 occasion. The patient tells me that she has been put on potassium to see if it helps with the stones, but she does not think it is doing much good. The patient denies any nausea or vomiting and she has not been running any high fevers. OBJECTIVE: GENERAL APPEARANCE: The patient is awake and alert, no obvious distress. VITAL SIGNS: Reviewed. She has low-grade temp. Physical exam, the patient has a tenderness involving the left flank area with percussion. There is no CVA tenderness with percussion today. SKIN: Warm and dry. LUNGS: Clear. ABDOMEN: Soft and nontender. DIAGNOSIS: Flank pain with chronic history of renal stones. TREATMENT PLAN: We will give the patient 4 [place] tablets. I advised that she uses them as needed only. She is to push fluids and I want the patient to follow up with her primary care provider is Dr. Dsouza within the next day or two if her symptoms are not improving or well controlled with this treatment plan and of course, she needs to follow up with the specialist as scheduled this coming week I should say in [place]. The patient is agreeable with the treatment plan and has no further questions. CRS/MODL /[id number]
== END 2018-10-04 21:10 | disposition home or self-care (01) ==
LOC: LB.ED 19:50
DX: R10.9 Unspecified abdominal pain (principal); Z87.442 Personal history of urinary calculi
CPT/HCPCS: 99283; A9270

== ENCOUNTER → 2018-12-24 | Emergency (ER) | payer OTHER ==
[~2018-12-24] MED LIST: Amoxicillin/Clavulanate K 875-125 MG Tab ONE
[2018-12-24 07:51] VITALS: BP 101/58; PULSE 77
--- NOTE | 2018-12-24 08:13 | EDM.PDOC ---
ED HPI GENERAL MEDICAL PROBLEM - General Stated Complaint: BAD TOOTH Time Seen by Provider: 12/24/18 08:00 Source of Information: Reports: Patient History Limitations: Reports: No Limitations - History of Present Illness INITIAL COMMENTS - FREE TEXT/NARRATIVE: This is a 38yo F here for tooth pain for the past few days. She states the pain is worse and that she will need to see the dentist which she has scheduled next week. She denies any other concerns. She states she needs all her teeth pulled in the back and that she has bad teeth. 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: Musculoskeletal History: Reports: Back Pain, Chronic Neurological History: Reports: Cerebral Aneurysms, CVA, Migraines, Other (See Below) Other Neuro History: 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 ED ROS ENT - Review of Systems Review Of Systems: ROS reveals no pertinent complaints other than HPI. ED EXAM, ENT - Physical Exam Exam: See Below Exam Limited By: No Limitations General Appearance: Alert, WD/WN, Mild Distress Ears: Normal External Exam Nose: Normal Inspection Mouth/Throat: Normal Inspection, Dental Pain, Dental Tenderness, Other (caries and missing teeth) Head: Atraumatic, Normocephalic Neck: Normal Inspection Course - Vital Signs Last Recorded V/S: Last Vital Signs Temp 36.6 C 12/24/18 07:30 Pulse 77 12/24/18 07:30 Resp 16 12/24/18 07:30 BP 101/58 L 12/24/18 07:30 Pulse Ox 99 12/24/18 07:30 Departure - Departure Time of Disposition: 08:15 Disposition: Home, Self-Care 01 Condition: Good Clinical Impression: Infected tooth - Discharge Information Instructions: Dental Abscess, [id number] Referrals: PCP,None [Primary Care Provider] - Care Plan Goals: Follow up with the dentist as previously scheduled, take tylenol or motrin for the pain, take antibiotic as prescribed. Return or call with any questions or concerns that you may have. - Problem List & Annotations (1) Infected tooth SNOMED Code(s): 387294983 Code(s): K04.7 - PERIAPICAL ABSCESS WITHOUT SINUS Status: Acute Priority : High Current Visit: Yes - Problem List Review Problem List Initiated/Reviewed/Updated: Yes - Assessment/Plan Plan: Counseled on tooth care and f/u with Dentist sheree. Discussed pain management with NSAIDS and Tylenol. Discussed antibiotics use and side effects and f/u as needed.
== END | disposition home or self-care (01) ==
LOC: LB.ED 07:26
DX: K04.7 Periapical abscess without sinus (principal)
CPT/HCPCS: 99282; A9270-GY

== ENCOUNTER 2019-01-27 06:51 | Emergency (ER) | payer OTHER ==
[2019-01-27 07:24] VITALS: BP 121/71; PULSE 91
[2019-01-27] MEDS ORDERED: Ketorolac 30 MG/ML SDV IVPUSH ONE (07:56)
[2019-01-27] MEDS ORDERED: Ondansetron 4 MG/2 ML SDV IVPUSH ONE (07:56)
[2019-01-27] MEDS ORDERED: Sodium Chloride 0.9% 1,000 ML IV ONE (07:57)
[2019-01-27] MEDS ORDERED: Ondansetron 4 MG/2 ML SDV ONE (08:07)
[2019-01-27] MEDS ORDERED: Ketorolac 60 MG/2 ML SDV ONE (08:07)
[2019-01-27] MEDS ORDERED: HYDROmorphone 2 MG/ML Syringe IVPUSH ONE (09:40)
[2019-01-27] MEDS ORDERED: HYDROmorphone 2 MG/ML SDV ONE (09:45)
--- NOTE | 2019-01-27 11:09 | CT ---
DATE OF SERVICE: 01/27/2019 CLINICAL DATA: Right flank pain Unenhanced abdomen and pelvic CT: Multislice acquisition through the abdomen and pelvis without IV or oral contrast was performed. Comparison made to prior unenhanced abdomen and pelvic CT dated 04/27/2018. There are atelectatic changes in both lung bases. Lung bases otherwise clear. The unenhanced liver appears normal. No focal hepatic lesions. The gallbladder appears normal. The spleen appears normal. The pancreas appears normal. The right and left adrenals appear normal. There is stable atrophy of the left kidney and stable perinephric fat stranding on the left. There are calcifications in the region of the renal pyramids bilaterally consistent with medullary sponge kidney, unchanged from the prior exam. There is persistent mild hydronephrosis and hydroureter on the left, unchanged on the prior exam. No hydronephrosis or hydroureter on the right. No evidence of ureterolithiasis. The bladder is partially fluid-filled. It appears normal. The patient is status post hysterectomy. The appendix is not dilated. No evidence of appendicitis. No free air. No free fluid. No dilated loops of bowel. No adenopathy. No aortic aneurysm. Impression: No acute abnormalities. MTDD
--- NOTE | 2019-01-27 11:15 | ER ---
REASON FOR EMERGENCY ROOM VISIT: Right flank pain. HISTORY: This 38-year-old woman has had multiple previous episodes of nephrolithiasis and ureterolithiasis in the past. Yesterday, around 4 p.m., she noted some right lower posterior flank pain which has been increasing since the onset. She describes the pain as a steady aching with intermittent sharp episodes and this tends to wax and wane. She denies any dysuria. She thinks her urine did have a slight bloody tinge. Yesterday, she has had some nausea but no vomiting. She denies any fever, chills, or myalgias. In the past, she has had lithotripsy and stents placed and has been on potassium citrate to lower the risk of recurrent stone formation. She does see a magento developer and a urologist in [place]. PAST MEDICAL HISTORY: Significant for: 1. Migraine headaches. 2. Renal calculi as noted above. 3. Toothaches. 4. Low back pain. MEDICATIONS: Include potassium citrate and omeprazole. ALLERGIES: NONE TO MEDICATIONS. PHYSICAL EXAMINATION: GENERAL: She is in no acute distress. She is alert and cooperative. VITAL SIGNS: She is afebrile. Blood pressure 121/71, heart rate 91, respirations 16, O2 sats 97% on room air. HEENT: Normal oropharynx. No scleral icterus is noted. NECK: Supple. No adenopathy. CHEST: Clear to auscultation. CARDIAC: Regular rate without murmur. ABDOMEN: Nondistended. Bowel sounds are present. A soft to deep and superficial palpation with some minimal discomfort in the right flank area that is unassociated with any guarding. She has no CVA tenderness. No palpable masses. No hepatosplenomegaly. EXTREMITIES: Normal pulses. No edema. SKIN: No rashes. LABORATORY DATA: Urinalysis is normal with no rbc's noted. Her CBC is within normal limits. Her CMP is within normal limits. We went ahead and obtained a CT scan of the abdomen and pelvis looking for calculi and no acute abnormalities were noted. She does have some atrophy in the left kidney and some calcifications in the renal pyramids bilaterally thought to be consistent with medullary sponge kidney. This study is unchanged from the prior exam. She does have some mild albeit persistent left-sided hydronephrosis and hydroureter, but no abnormalities on the right side in that regard. There is no evidence of ureterolithiasis. FURTHER EMERGENCY ROOM COURSE: Because of discomfort, we did go ahead and give her 1 mg of Dilaudid IV after we tried Toradol 60 mg IV, which did not produce any results. She did get significant pain relief with this. IMPRESSION: Right flank pain. No evidence of active ureterolithiasis or other intra- abdominal pathology at this stage. PLAN: At this point, I would simply observe her, and I explained this to her. She does need to follow up with her urologist and see if they recommend anything else going forward. At this point, I could not identify any pathology to treat. I did go ahead and give her a prescription for tramadol 50 mg, dispensed #4, 1 q.6 hours p.r.n. pain. She agrees with this plan and all questions were answered. ELKIN /[id number]
== END 2019-01-27 10:30 | disposition home or self-care (01) ==
LOC: LB.ED 06:51
DX: R10.9 Unspecified abdominal pain (principal)
CPT/HCPCS: 36415; 74176; 80053; 81001; 85025; 96361; 96374; 96375; 99284-25; J1170; J1885; J2405; J7030

== ENCOUNTER 2019-07-13 21:49 | Emergency (ER) | payer OTHER ==
[2019-07-13 22:03] VITALS: BP 114/68; PULSE 85
[2019-07-13] MEDS: Morphine 2 MG/ML Syringe IM ONE (22:24)
[2019-07-13] MEDS ORDERED: Acetaminophen/HYDROcodone 325-5 MG Tab ONE (22:30)
--- NOTE | 2019-07-13 22:51 | EDM.PDOC ---
ED HPI GENERAL MEDICAL PROBLEM - General Chief Complaint: General Stated Complaint: KIDNEY STONE Time Seen by Provider: 07/13/19 21:55 Source of Information: Reports: Patient History Limitations: Reports: No Limitations - History of Present Illness INITIAL COMMENTS - FREE TEXT/NARRATIVE: This patient presents to the ED for evaluation of flank pain. She has a history of kidney stones and had a telemedicine visit with Dr. Dsouza last week for the same concern. She was given a prescription of hydrocodone that seemed to help until today when she started to experience an increase in the pain, particularly on the left side. She states she noted some blood in her urine this evening as well. She restarted herself on some flomax that she had at home from a previous episode as well. She denies fever, dysuria, other concerns or complaints. She has not had any recent illnesses including cough, shortness of breath, or sore throat. Onset: Gradual Duration: Getting Worse Location: Reports: Back Middle Back Pain Score (Numeric/FACES): 7 - Related Data Allergies Allergy/AdvReac Type Severity Reaction Status Date / Time No Known Allergies Allergy Verified 07/13/19 22:11 Home Meds: Home Meds Omeprazole [Prilosec] 20 mg PO DAILY 05/21/15 [History] Potassium Citrate 1 tab PO TID 06/22/18 [History] Tamsulosin HCl [Flomax] 0.4 mg PO DAILY PRN 07/13/19 [History] Past Medical History HEENT History: Reports: Impaired Vision Cardiovascular History: Reports: Aneurysm Gastrointestinal History: Reports: GERD Genitourinary History: Reports: Renal Calculus, UTI, Recurrent 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: Musculoskeletal History: Reports: Back Pain, Chronic Neurological History: Reports: Cerebral Aneurysms, CVA, Migraines, Other (See Below) Other Neuro History: 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 Psychiatric History: Reports: Anxiety, Depression - Infectious Disease History Infectious Disease History: Reports: Chicken Pox - Past Surgical History HEENT Surgical History: Reports: Other (See Below) Other HEENT Surgeries/Procedures: Aneurysm coil Female Surgical History: Reports: Hysterectomy - Past Imaging History Past Imaging History: Reports: Other (See Below) Social & Family History - Family History Family Medical History: Noncontributory - Tobacco Use Smoking Status *Q: Current Every Day Smoker Years of Tobacco use: 25 Packs/Tins Daily: 1 - Caffeine Use Caffeine Use: Reports: Coffee Caffeine Use Comment: usually drinks two cups per day. - Recreational Drug Use Recreational Drug Use: No ED ROS GENERAL - Review of Systems Review Of Systems: Comprehensive ROS is negative, except as noted in HPI. ED EXAM, GENERAL - Physical Exam Exam: See Below Exam Limited By: No Limitations General Appearance: Alert, WD/WN, No Apparent Distress Eye Exam: Bilateral Eye: PERRL Ears: Normal External Exam Nose: Normal Inspection Throat/Mouth: Normal Inspection Head: Atraumatic, Normocephalic Neck: Normal Inspection, Full Range of Motion Respiratory/Chest: No Respiratory Distress, No Accessory Muscle Use Back Exam: CVA Tenderness (R), CVA Tenderness (L) (left greater than right) Neurological: Alert, Oriented Course - Vital Signs Last Recorded V/S: Last Vital Signs Temp 36.9 C 07/13/19 21:59 Pulse 85 07/13/19 21:59 Resp 20 07/13/19 21:59 BP 114/68 07/13/19 21:59 Pulse Ox 96 07/13/19 21:59 - Orders/Labs/Meds Orders: Active Orders 24 hr Category Date Time Status Abdomen Pelvis wo Cont [CT] Stat Exams 07/13/19 21:52 Taken Labs: Laboratory Tests 07/13/19 Range/Units 21:56 Urine Color Yellow Urine Appearance Clear (CLEAR) Urine pH 6.0 (5.0-8.0) Ur Specific [place] >= 1.030 (1.003-1.030) Urine Protein Negative (NEGATIVE) mg/dL Urine Glucose (UA) Negative (NEGATIVE) mg/dL Urine Ketones Negative (NEGATIVE) mg/dL Urine Occult Blood Negative (NEGATIVE) Urine Nitrite Negative (NEGATIVE) Urine Bilirubin Negative (NEGATIVE) Urine Urobilinogen 0.2 (0.2-1.0) E.U./dL Ur Leukocyte Esterase Negative (NEGATIVE) Urine RBC 0-5 H /HPF Urine WBC 0-5 H /HPF Ur Squamous Epith Cells Moderate /HPF Urine Other Meds: Medications Discontinued Medications Generic Name Dose Route Start Last Admin Trade Name Freq PRN Reason Stop Dose Admin Morphine Sulfate Confirm 07/13/19 22:26 07/13/19 22:23 Morphine Administered 07/13/19 22:27 Not Given Dose 4 mg .ROUTE .STK-MED ONE Morphine Sulfate 4 mg 07/13/19 22:20 07/13/19 22:24 Morphine IM 07/13/19 22:21 4 mg ONETIME ONE Administration - Radiology Interpretation Free Text/Narrative:: This patient presents with flank pain. Differential Diagnosis considered included ureterolithiasis, UTI, pyelonephritis, appendicitis, colitis, GIB, diverticulitis, volvulus, ectopic, cyst, . Signs and symptoms consistent with ureterolithiasis.This was confirmed on CT; however, her CT findings are largely unchanged from her previous study in 02/2019. Patients pain is controlled in and she will be given Flomax and a limited quantity of hydrocodone. No signs of infected stone. Tolerates PO. Patient is hemodynamically stable in the ED and plan is home with abdominal pain recheck by primary care physician. She was given a urology referral but states she has not been able to get appointment scheduled. She may return to the ED if symptoms worsen. Ureterolithiasis precautions for home. Questions were answered. CT Results Date: 07/13/19 Departure - Departure Time of Disposition: 22:45 Disposition: Home, Self-Care 01 Condition: Good Clinical Impression: Urolithiasis, Kidney stone - Discharge Information *PRESCRIPTION DRUG MONITORING PROGRAM REVIEWED*: Yes *COPY OF PRESCRIPTION DRUG MONITORING REPORT IN PATIENT JENNIFER: No Instructions: Kidney Stones Referrals: PCP,None [Primary Care Provider] - Forms: ED Department Discharge Additional Instructions: Discharge home. Flomax 1 tablet daily for 2 weeks. Hydrocodone 10mg by mouth every 6 hours. Follow up with urologists as soon as possible. Sepsis Event Note - Evaluation Sepsis Screening Result: No Definite Risk - Focused Exam Vital Signs: Vital Signs Temp Pulse Resp BP Pulse Ox 07/13/19 21:59 36.9 C 85 20 114/68 96 07/13/19 21:53 36.9 C 85 20 114/68 96 Date Exam was Performed: 07/13/19 Time Exam was Performed: 22:44 - My Orders Last 24 Hours: My Active Orders 07/13/19 21:52 Abdomen Pelvis wo Cont [CT] Stat - Assessment/Plan Last 24 Hours: My Active Orders 07/13/19 21:52 Abdomen Pelvis wo Cont [CT] Stat
--- NOTE | 2019-07-14 08:09 | CT ---
DATE OF SERVICE: 07/13/19 CLINICAL DATA: kidney stones UNENHANCED ABDOMEN AND PELVIC CT: Multislice axial acquisition without IV or oral contrast was performed. Comparison is made to a prior exam dated 03/03/19. The lung bases are clear. The heart size is normal. The unenhanced liver appears normal. No focal hepatic lesions. The gallbladder appears normal. No calcified gallstones. The spleen appears normal. The pancreas appears normal. There is moderate atrophy of the left kidney, unchanged from the prior exam. There are numerous calcifications in the region of the renal pyramids bilaterally consistent with medullary sponge kidney, unchanged from the prior exam. No evidence of ureteral calculi. No hydronephrosis or hydroureter. There is, however, mild perinephric fat stranding on the left. This has not changed significantly from the prior study. The possibility of pyelonephritis should at least be considered. There is a small amount of fluid within the bladder. It appears normal. The patient is status post hysterectomy. The appendix is not dilated. No evidence of appendicitis. No free air. No free fluid. No dilated loops of bowel. No adenopathy. No aortic aneurysm or dissection. There is a small fat-containing umbilical hernia. No other significant findings. [id number] [facility], [place]
== END 2019-07-13 22:45 | disposition home or self-care (01) ==
LOC: LB.ED 21:49
DX: N20.0 Calculus of kidney (principal); K21.9 Gastro-esophageal reflux disease without esophagitis; F17.210 Nicotine dependence, cigarettes, uncomplicated; Z79.899 Other long term (current) drug therapy
CPT/HCPCS: 74176; 81001; 96372; 99283; 99284-25; A9270-GY; J2270

== ENCOUNTER 2019-09-14 19:50 | Emergency (ER) | payer OTHER ==
[2019-09-14] MEDS ORDERED: Ketorolac 60 MG/2 ML SDV IVPUSH ONE (20:04)
[2019-09-14] MEDS ORDERED: Prochlorperazine 10 MG/2 ML SDV IVPUSH ONE (20:11)
[2019-09-14 22:42] VITALS: BP 119/70; PULSE 80
--- NOTE | 2019-09-15 13:24 | EDM.PDOC ---
ED HPI GENERAL MEDICAL PROBLEM - General Chief Complaint: Flank Pain Stated Complaint: kidney stones Time Seen by Provider: 09/14/19 20:20 Source of Information: Reports: Patient History Limitations: Reports: No Limitations - History of Present Illness INITIAL COMMENTS - FREE TEXT/NARRATIVE: Patient with history of kidney stones states she has had bilateral flank pain that she rates as 8/10 for past day since last night. Pain is constant and relieved by holding still. Pain located in both flanks. No blood in urine . No increased urinary frequency and no radiation of the pain. Initial orders placed by PANTOMIMIST prior to my arrival. Onset: Gradual Onset Date: 09/13/19 Duration: Other (one day) Location: Reports: Back Quality: Reports: Ache Severity: Moderate Improves with: Reports: Immobilization, Rest - Related Data Allergies Allergy/AdvReac Type Severity Reaction Status Date / Time No Known Allergies Allergy Verified 07/13/19 22:11 Home Meds: Home Meds Omeprazole [Prilosec] 20 mg PO DAILY 05/21/15 [History] Potassium Citrate 1 tab PO TID 06/22/18 [History] Tamsulosin HCl [Flomax] 0.4 mg PO DAILY PRN 07/13/19 [History] Past Medical History HEENT History: Reports: Impaired Vision Cardiovascular History: Reports: Aneurysm Gastrointestinal History: Reports: GERD Genitourinary History: Reports: Renal Calculus, UTI, Recurrent 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: Musculoskeletal History: Reports: Back Pain, Chronic Neurological History: Reports: Cerebral Aneurysms, CVA, Migraines, Other (See Below) Other Neuro History: 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 Psychiatric History: Reports: Anxiety, Depression - Infectious Disease History Infectious Disease History: Reports: Chicken Pox - Past Surgical History HEENT Surgical History: Reports: Other (See Below) Other HEENT Surgeries/Procedures: Aneurysm coil Female Surgical History: Reports: Hysterectomy - Past Imaging History Past Imaging History: Reports: Other (See Below) Social & Family History - Family History Family Medical History: Noncontributory - Tobacco Use Smoking Status *Q: Current Status Unknown - Caffeine Use Caffeine Use: Reports: Coffee Caffeine Use Comment: usually drinks two cups per day. ED ROS GENERAL - Review of Systems Review Of Systems: See Below Constitutional: Reports: Fever, Chills, Weakness HEENT: Reports: No Symptoms Respiratory: Denies: Shortness of Breath, Pleuritic Chest Pain, Cough Cardiovascular: Denies: Chest Pain GI/Abdominal: Denies: Abdominal Pain, Anorexia, Diarrhea, Decreased Appetite, Nausea, Vomiting : Reports: Flank Pain. Denies: Dysuria, Frequency, Hematuria Musculoskeletal: Reports: Back Pain Skin: Reports: No Symptoms ED EXAM, GENERAL - Physical Exam Exam: See Below Exam Limited By: No Limitations General Appearance: Alert, WD/WN, No Apparent Distress Ears: Normal External Exam Nose: Normal Inspection, Normal Mucosa Throat/Mouth: Normal Inspection Head: Atraumatic, Normocephalic Neck: Normal Inspection, Supple, Non-Tender Respiratory/Chest: No Respiratory Distress, Lungs Clear, Normal Breath Sounds, Chest Non-Tender Cardiovascular: Regular Rate, Rhythm, No Murmur GI/Abdominal: Normal Bowel Sounds, Soft, Non-Tender Back Exam: Paraspinal Tenderness, Other (Bilateral paraspinal tenderness of upper flanks. Back NROM). No: Vertebral Tenderness Extremities: Normal Inspection Neurological: Alert, Oriented, Normal Cognition, Normal Gait, No Motor/Sensory Deficits Psychiatric: Normal Affect, Normal Mood Skin Exam: Warm, Dry, Intact Course - Vital Signs Text/Narrative:: Patient initially treated with Toradol 15 mg IV, Compazine 10 mg IV. Patient had CT and labs ordered . Prior to having CT eusebio stated to nurse she had to leave and signed out AMA prior to my having a chance to talk to her Last Recorded V/S: Last Vital Signs Temp 98.3 F 09/14/19 19:58 Pulse 80 09/14/19 19:58 Resp 16 09/14/19 19:58 BP 119/70 09/14/19 19:58 Pulse Ox 100 09/14/19 19:58 - Orders/Labs/Meds Labs: Laboratory Tests 09/14/19 09/14/19 09/14/19 Range/Units 20:01 20:10 20:10 WBC 9.6 (4.0-11.0) K/uL RBC 4.68 (3.80-5.80) M/uL Hgb 13.8 (11.5-16.5) g/dL Hct 40.7 (37.0-47.0) % MCV 87 (76-96) fL MCH 29.5 (27.0-32.0) pg MCHC 33.9 (31.0-35.0) g/dL RDW 13.6 (11.0-16.0) % Plt Count 313 D (150-500) K/uL MPV 9.9 (6.0-10.0) fL Neut % (Auto) 54.3 (45.0-70.0) % Lymph % (Auto) 34.6 (20.0-40.0) % [place] % (Auto) 8.7 (3.0-10.0) % Eos % (Auto) 2.2 (1.0-5.0) % Baso % (Auto) 0.2 (0.0-0.5) % Neut # (Auto) 5.20 (2.00-7.50) K/uL Lymph # (Auto) 3.31 (1.50-4.00) K/uL [place] # (Auto) 0.83 H (0.20-0.80) K/uL Eos # (Auto) 0.21 (0.04-0.40) K/uL Baso # (Auto) 0.02 (0.02-0.10) K/uL Sodium 140 (136-145) mmol/L Potassium 3.6 D (3.5-5.1) mmol/L Chloride 105 (98-107) mmol/L Carbon Dioxide 26.7 (21.0-32.0) mmol/L Anion Gap 11.9 (5.0-15.0) mmol/L BUN 9 (8-26) mg/dL Creatinine 0.97 (0.55-1.02) mg/dL Est Cr Clr Drug Dosing TNP Estimated GFR (MDRD) > 60 (>60) MLS/MIN BUN/Creatinine Ratio 9.3 (6-25) Glucose 93 (74-100) mg/dL Calcium 8.5 (8.5-10.1) mg/dL Total Bilirubin 0.2 D (0.0-1.0) mg/dL AST 9 L (15-37) U/L ALT 15 (12-78) U/L Alkaline Phosphatase 53 (46-116) U/L Total Protein 7.1 (6.4-8.2) g/dL Albumin 3.5 (3.4-5.0) g/dL Globulin 3.6 (2.2-4.2) g/dL Albumin/Globulin Ratio 1.0 (0.8-2.0) Urine Color Yellow Urine Appearance Clear (CLEAR) Urine pH 6.5 (5.0-8.0) Ur Specific [place] 1.025 (1.003-1.030) Urine Protein Negative (NEGATIVE) mg/dL Urine Glucose (UA) Negative (NEGATIVE) mg/dL Urine Ketones Negative (NEGATIVE) mg/dL Urine Occult Blood Negative (NEGATIVE) Urine Nitrite Negative (NEGATIVE) Urine Bilirubin Negative (NEGATIVE) Urine Urobilinogen 0.2 (0.2-1.0) E.U./dL Ur Leukocyte Esterase Negative (NEGATIVE) Meds: Medications Discontinued Medications Generic Name Dose Route Start Last Admin Trade Name Freq PRN Reason Stop Dose Admin Ketorolac Tromethamine 15 mg 09/14/19 20:04 09/14/19 20:28 Toradol IVPUSH 09/14/19 20:05 15 mg ONETIME ONE Administration Prochlorperazine Edisylate 10 mg 09/14/19 20:11 09/14/19 20:28 Compazine IVPUSH 09/14/19 20:12 10 mg ONETIME ONE Administration Departure - Departure Time of Disposition: 21:40 Disposition: Home, Self-Care 01 Clinical Impression: Back pain Qualifiers: Back pain location: back pain in unspecified location Chronicity: acute Back pain laterality: bilateral Qualified Code(s): M54.9 - Dorsalgia, unspecified - Discharge Information *PRESCRIPTION DRUG MONITORING PROGRAM REVIEWED*: Not Applicable *COPY OF PRESCRIPTION DRUG MONITORING REPORT IN PATIENT JENNIFER: Not Applicable Referrals: PCP,None [Primary Care Provider] - Forms: ED Department Discharge Sepsis Event Note (ED) - Evaluation Sepsis Screening Result: No Definite Risk
== END 2019-09-14 20:38 | disposition home or self-care (01) ==
LOC: LB.ED 19:50
DX: M54.9 Dorsalgia, unspecified (principal); K21.9 Gastro-esophageal reflux disease without esophagitis; Z86.73 Personal history of transient ischemic attack (TIA), and cerebral infarction without residual deficits; Z79.899 Other long term (current) drug therapy
CPT/HCPCS: 36415; 80053; 81003; 85025; 96374; 96375; 99284-25; J0780; J1885

== ENCOUNTER 2020-03-16 10:27 | Emergency (ER) | payer OTHER ==
[2020-03-16] MEDS ORDERED: Ketorolac 60 MG/2 ML SDV IM ONE (10:51)
[2020-03-16] MEDS ORDERED: Ondansetron 4 MG Tab.DIS PO ONE (10:54)
[2020-03-16] MEDS ORDERED: Ketorolac 60 MG/2 ML SDV ONE (11:05)
[2020-03-16] MEDS ORDERED: Ondansetron 4 MG Tab.DIS ONE (11:06)
--- NOTE | 2020-03-16 11:10 | EDM.PDOC ---
ED HPI GENERAL MEDICAL PROBLEM - General Chief Complaint: General Stated Complaint: KIDNEY STONES Time Seen by Provider: 03/16/20 11:05 Source of Information: Reports: Patient History Limitations: Reports: No Limitations - History of Present Illness INITIAL COMMENTS - FREE TEXT/NARRATIVE: Patient presented to the ER with a c/o right flank and lower back. She reports a h/o recurrent kidney stones and, to her, it feels similar to it. It started last night at 6p, and gradually got worse. Stabbing in nature. Reports nausea but no emesis. No CP or SOB. No abd pain. Reports that her urine is dark in color. no fever or chills. Last similar attack was a month ago. Tried Tylenol at home, but didn't help. 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 Bilateral Flank Pain Score (Numeric/FACES): 9 - Related Data Allergies Allergy/AdvReac Type Severity Reaction Status Date / Time No Known Allergies Allergy Verified 03/16/20 11:07 Home Meds: Home Meds Omeprazole [Prilosec] 20 mg PO DAILY 05/21/15 [History] Potassium Citrate 1 tab PO TID 06/22/18 [History] Tamsulosin HCl [Flomax] 0.4 mg PO DAILY PRN 07/13/19 [History] Acetaminophen/HYDROcodone [[place] 325-5 MG] 1 tab PO Q6H PRN #6 tab 03/16/20 [Rx] Ketorolac [Toradol] 10 mg PO Q6H PRN #10 tab 03/16/20 [Rx] Ondansetron [Zofran ODT] 4 mg PO Q6H PRN #14 tab.dis 03/16/20 [Rx] Past Medical History HEENT History: Reports: Impaired Vision Cardiovascular History: Reports: Aneurysm Gastrointestinal History: Reports: GERD Genitourinary History: Reports: Renal Calculus, UTI, Recurrent 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: Musculoskeletal History: Reports: Back Pain, Chronic Neurological History: Reports: Cerebral Aneurysms, CVA, Migraines, Other (See Below) Other Neuro History: 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 ED ROS GENERAL - Review of Systems Review Of Systems: See Below Constitutional: Reports: No Symptoms, Other (nausea). Denies: Fever, Chills HEENT: Reports: No Symptoms Respiratory: Reports: No Symptoms Cardiovascular: Reports: No Symptoms GI/Abdominal: Reports: Nausea Musculoskeletal: Reports: No Symptoms Skin: Reports: No Symptoms Neurological: Reports: No Symptoms Psychiatric: Reports: No Symptoms ED EXAM, GENERAL - Physical Exam Exam: See Below Exam Limited By: No Limitations General Appearance: Alert, WD/WN, Mild Distress (due to pain) Eye Exam: Bilateral Eye: PERRL Respiratory/Chest: No Respiratory Distress, Normal Breath Sounds, No Accessory Muscle Use Cardiovascular: Normal Peripheral Pulses, Regular Rate, Rhythm GI/Abdominal: Normal Bowel Sounds, Soft, Non-Tender, No Organomegaly, No Distention Back Exam: Normal Inspection, CVA Tenderness (R) Extremities: Normal Inspection, Normal Range of Motion Neurological: Alert, Oriented, Normal Cognition, No Motor/Sensory Deficits Psychiatric: Normal Affect, Normal Mood Course - Vital Signs Last Recorded V/S: Last Vital Signs Temp 37.5 C 03/16/20 11:11 Pulse 83 03/16/20 10:55 Resp 18 03/16/20 10:55 BP 128/71 03/16/20 10:55 Pulse Ox 100 03/16/20 10:55 - Orders/Labs/Meds Labs: Laboratory Tests 03/16/20 03/16/20 03/16/20 Range/Units 10:51 11:00 11:00 WBC 9.7 (4.0-11.0) K/uL RBC 4.67 (3.80-5.80) M/uL Hgb 13.7 (11.5-16.5) g/dL Hct 40.3 (37.0-47.0) % MCV 86 (76-96) fL MCH 29.3 (27.0-32.0) pg MCHC 34.0 (31.0-35.0) g/dL RDW 13.5 (11.0-16.0) % Plt Count 226 D (150-500) K/uL MPV 9.6 (6.0-10.0) fL Neut % (Auto) 63.6 (45.0-70.0) % Lymph % (Auto) 28.6 (20.0-40.0) % [place] % (Auto) 7.0 (3.0-10.0) % Eos % (Auto) 0.6 L (1.0-5.0) % Baso % (Auto) 0.2 (0.0-0.5) % Neut # (Auto) 6.17 (2.00-7.50) K/uL Lymph # (Auto) 2.78 (1.50-4.00) K/uL [place] # (Auto) 0.68 (0.20-0.80) K/uL Eos # (Auto) 0.06 (0.04-0.40) K/uL Baso # (Auto) 0.02 (0.02-0.10) K/uL Sodium (136-145) mmol/L Potassium (3.5-5.1) mmol/L Chloride (98-107) mmol/L Carbon Dioxide (21.0-32.0) mmol/L Anion Gap (5.0-15.0) mmol/L BUN (8-26) mg/dL Creatinine (0.55-1.02) mg/dL Est Cr Clr Drug Dosing mL/min Estimated GFR (MDRD) (>60) MLS/MIN BUN/Creatinine Ratio (6-25) Glucose (74-100) mg/dL Calcium (8.5-10.1) mg/dL Urine Color Yellow Urine Appearance Clear (CLEAR) Urine pH 7.0 (5.0-8.0) Ur Specific [place] 1.025 (1.003-1.030) Urine Protein Negative (NEGATIVE) mg/dL Urine Glucose (UA) Negative (NEGATIVE) mg/dL Urine Ketones Negative (NEGATIVE) mg/dL Urine Occult Blood Trace-intact H (NEGATIVE) Urine Nitrite Negative (NEGATIVE) Urine Bilirubin Negative (NEGATIVE) Urine Urobilinogen 0.2 (0.2-1.0) E.U./dL Ur Leukocyte Esterase Negative (NEGATIVE) Urine RBC Not Reportable Urine WBC Not Reportable Ur Epithelial Cells Few /HPF Urine Bacteria Rare /HPF Urine Mucus Few /HPF Urine HCG, Qual Negative (NEGATIVE) 03/16/20 Range/Units 11:00 WBC (4.0-11.0) K/uL RBC (3.80-5.80) M/uL Hgb (11.5-16.5) g/dL Hct (37.0-47.0) % MCV (76-96) fL MCH (27.0-32.0) pg MCHC (31.0-35.0) g/dL RDW (11.0-16.0) % Plt Count (150-500) K/uL MPV (6.0-10.0) fL Neut % (Auto) (45.0-70.0) % Lymph % (Auto) (20.0-40.0) % [place] % (Auto) (3.0-10.0) % Eos % (Auto) (1.0-5.0) % Baso % (Auto) (0.0-0.5) % Neut # (Auto) (2.00-7.50) K/uL Lymph # (Auto) (1.50-4.00) K/uL [place] # (Auto) (0.20-0.80) K/uL Eos # (Auto) (0.04-0.40) K/uL Baso # (Auto) (0.02-0.10) K/uL Sodium 138 (136-145) mmol/L Potassium 3.9 (3.5-5.1) mmol/L Chloride 102 (98-107) mmol/L Carbon Dioxide 26.8 (21.0-32.0) mmol/L Anion Gap 13.1 (5.0-15.0) mmol/L BUN 8 (8-26) mg/dL Creatinine 1.01 (0.55-1.02) mg/dL Est Cr Clr Drug Dosing 81.10 mL/min Estimated GFR (MDRD) > 60 (>60) MLS/MIN BUN/Creatinine Ratio 7.9 (6-25) Glucose 67 L (74-100) mg/dL Calcium 8.5 (8.5-10.1) mg/dL Urine Color Urine Appearance (CLEAR) Urine pH (5.0-8.0) Ur Specific [place] (1.003-1.030) Urine Protein (NEGATIVE) mg/dL Urine Glucose (UA) (NEGATIVE) mg/dL Urine Ketones (NEGATIVE) mg/dL Urine Occult Blood (NEGATIVE) Urine Nitrite (NEGATIVE) Urine Bilirubin (NEGATIVE) Urine Urobilinogen (0.2-1.0) E.U./dL Ur Leukocyte Esterase (NEGATIVE) Urine RBC Urine WBC Ur Epithelial Cells /HPF Urine Bacteria /HPF Urine Mucus /HPF Urine HCG, Qual (NEGATIVE) Meds: Medications Discontinued Medications Generic Name Dose Route Start Last Admin Trade Name Freq PRN Reason Stop Dose Admin Ketorolac Tromethamine 60 mg 03/16/20 10:51 03/16/20 10:56 Toradol IM 03/16/20 10:52 60 mg ONETIME ONE Administration Ketorolac Tromethamine Confirm 03/16/20 11:05 03/16/20 11:21 Toradol Administered 03/16/20 11:06 Not Given Dose 60 mg .ROUTE .STK-MED ONE Ondansetron HCl 4 mg 03/16/20 10:54 03/16/20 10:56 Zofran Odt PO 03/16/20 10:55 4 mg ONETIME ONE Administration Ondansetron HCl Confirm 03/16/20 11:06 03/16/20 11:21 Zofran Odt Administered 03/16/20 11:07 Not Given Dose 4 mg .ROUTE .STK-MED ONE Departure - Departure Time of Disposition: 11:30 Disposition: Home, Self-Care 01 Condition: Good Clinical Impression: Right flank pain, Kidney stone - Discharge Information *PRESCRIPTION DRUG MONITORING PROGRAM REVIEWED*: Yes *COPY OF PRESCRIPTION DRUG MONITORING REPORT IN PATIENT JENNIFER: Yes Prescriptions: Acetaminophen/HYDROcodone [[place] 325-5 MG] 1 tab PO Q6H PRN #6 tab PRN Reason: Pain (Moderate 4-6) Ketorolac [Toradol] 10 mg PO Q6H PRN #10 tab PRN Reason: Pain (Mild 1-3) Ondansetron [Zofran ODT] 4 mg PO Q6H PRN #14 tab.dis PRN Reason: Nausea Referrals: PCP,None [Primary Care Provider] - Forms: ED Department Discharge Additional Instructions: - please resume taking flomax as before - take pain pain meds as prescribed - Recommend to call 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 special education teacher for an appointment - make an appointment to see your PCP in 1-2 week - increase fluids intake - return to the ER if symptoms got worse or any concerns Sepsis Event Note (ED) - Evaluation Sepsis Screening Result: No Definite Risk - Focused Exam Vital Signs: Vital Signs Temp Pulse Resp BP Pulse Ox 03/16/20 11:11 37.5 C 03/16/20 10:55 37.9 C 83 18 128/71 100 03/16/20 10:43 37.9 C 83 18 128/71 100 - Problem List & Annotations (1) Kidney stone SNOMED Code(s): 94778469 Code(s): N20.0 - CALCULUS OF KIDNEY Status: Acute Priority: Medium (2) Right flank pain SNOMED Code(s): 451521332 Code(s): R10.9 - UNSPECIFIED ABDOMINAL PAIN Status: Acute Priority: Medium - Problem List Review Problem List Initiated/Reviewed/Updated: Yes - Assessment/Plan Plan: pain was controlled with IM toradol prescription of Zofran, Toradol PO and [place] #7 tabs. were given. Increase fluids intake f/u with your 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 special education teacher Return to the ER if any concerns
[2020-03-16 11:12] VITALS: BP 128/71; PULSE 83
== END 2020-03-16 11:50 | disposition home or self-care (01) ==
LOC: LB.ED 10:27
DX: N20.0 Calculus of kidney (principal); K21.9 Gastro-esophageal reflux disease without esophagitis; Z79.899 Other long term (current) drug therapy; Z86.73 Personal history of transient ischemic attack (TIA), and cerebral infarction without residual deficits
CPT/HCPCS: 36415; 80048; 81001; 81025; 85025; 96372; 99283; 99284; A9270-GY; J1885

== ENCOUNTER 2020-06-06 19:13 | Emergency (ER) | payer OTHER ==
[2020-06-06] MEDS ORDERED: Ketorolac 60 MG/2 ML SDV IM ONE (19:40)
[2020-06-06] MEDS ORDERED: Acetaminophen/HYDROcodone 325-5 MG Tab ONE (19:41)
[2020-06-06] MEDS ORDERED: Amoxicillin/Clavulanate K 875-125 MG Tab ONE (19:41)
--- NOTE | 2020-06-07 02:23 | ER ---
HISTORY OF PRESENT ILLNESS: A 40-year-old lady here with complaints of dental pain involving the right upper jaw that started a couple of days ago, her most recent episode. She states that she has bad teeth and has as an appointment to see a dentist on to start having them removed and to get dentures. She plans on having all of her upper teeth removed. The patient states she never went to a dentist when she was younger and that is why she was told she had bad teeth. She has not had any recent dental injuries. There has been no drainage inside of her mouth or bleeding. OBJECTIVE: GENERAL APPEARANCE: The patient is awake and alert, in no obvious distress. VITAL SIGNS: Reviewed as listed. HEENT: Oral exam, the patient has multiple dental caries involving the right upper jaw. She is missing about half of the teeth. She only has 2 molars and 1 premolar. The first molar and the premolar have swelling around them and inflammation. There is no pustular drainage formation here today. DIAGNOSIS: Severe dental caries with gingivitis symptoms. TREATMENT PLAN: Augmentin will be started. I will give the patient Toradol 60 mg IM. I will give her a script to take Toradol tablets for the next couple of days 3 times a day. She wants hydrocodone and asked for it repeatedly. I explained to the patient this is a chronic condition and she really should not have any. She is persistent in asking for it and I advised the patient that I will give her 2 tablets one to take tonight and one tomorrow night, so she can get some sleep and then she needs to see the dentist on for further treatment measures. The patient readily agrees. CRS/MODL /[id number]
[2020-06-07 05:45] VITALS: BP 125/75; PULSE 92
== END 2020-06-06 19:58 | disposition home or self-care (01) ==
LOC: LB.ED 19:13
DX: K02.9 Dental caries, unspecified (principal); K05.10 Chronic gingivitis, plaque induced
CPT/HCPCS: 96372; 99282; A9270-GY; J1885

== ENCOUNTER 2020-07-19 13:26 | Emergency (ER) | payer OTHER ==
[2020-07-19 14:09] VITALS: BP 123/77; PULSE 82
--- NOTE | 2020-07-19 14:12 | EDM.PDOC ---
ED HPI GENERAL MEDICAL PROBLEM - General Chief Complaint: Genitourinary Problem Stated Complaint: KIDNEY STONES Time Seen by Provider: 07/19/20 13:55 Source of Information: Reports: Patient History Limitations: Reports: No Limitations - History of Present Illness INITIAL COMMENTS - FREE TEXT/NARRATIVE: patient presented to the ER with a c/o right flank pain since the morning. h/o kidney stones in the past. No fever or chills. Mild nausea but no emesis. pain started this morning - spasm like in nature - radiating to the right flank. decrease in UOP. no hematuria. Last stone was in April/2020. Passed without intervention. 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: Musculoskeletal History: Reports: Back Pain, Chronic Neurological History: Reports: Cerebral Aneurysms, CVA, Migraines, Other (See Below) Other Neuro History: 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 Psychiatric History: Reports: Anxiety, Depression - Infectious Disease History Infectious Disease History: Reports: Chicken Pox - Past Surgical History HEENT Surgical History: Reports: Other (See Below) Other HEENT Surgeries/Procedures: Aneurysm coil Cardiovascular Surgical History: Reports: Aneurysm GI Surgical History: Reports: None Female Surgical History: Reports: Hysterectomy - Past Imaging History Past Imaging History: Reports: Other (See Below) Social & Family History - Family History Family Medical History: No Pertinent Family History - Caffeine Use Caffeine Use: Reports: Coffee, Soda Caffeine Use Comment: usually drinks two cups per day. ED ROS GENERAL - Review of Systems Review Of Systems: See Below Constitutional: Reports: No Symptoms HEENT: Reports: No Symptoms Respiratory: Reports: No Symptoms Cardiovascular: Reports: No Symptoms GI/Abdominal: Reports: Abdominal Pain : Reports: Dysuria, Flank Pain Musculoskeletal: Reports: No Symptoms Skin: Reports: No Symptoms Neurological: Reports: No Symptoms Psychiatric: Reports: No Symptoms ED EXAM, RENAL/ - Physical Exam Exam: See Below Exam Limited By: No Limitations General Appearance: Alert, WD/WN, Mild Distress Respiratory/Chest: No Respiratory Distress Cardiovascular: Normal Peripheral Pulses GI/Abdominal: Normal Bowel Sounds, Soft, Non-Tender Neurological: Alert, Oriented, No Motor/Sensory Deficits Course - Vital Signs Last Recorded V/S: Last Vital Signs Temp 36.7 C 07/19/20 14:04 Pulse 82 07/19/20 14:04 Resp 18 07/19/20 14:04 BP 123/77 07/19/20 14:04 Pulse Ox 97 07/19/20 14:04 - Orders/Labs/Meds Orders: Active Orders 24 hr Category Date Time Status Sodium Chloride 0.9% [Saline Flush] Med 07/19/20 14:08 Active 10 ml FLUSH ASDIRECTED PRN Saline Lock Insert [OM.PC] Routine Oth 07/19/20 14:08 Ordered Medication Orders Sodium Chloride (Sodium Chloride 0.9% 10 Ml Syringe) 10 ml FLUSH ASDIRECTED PRN PRN Reason: Keep Vein Open Last Admin: 07/19/20 14:14 Dose: 10 ml Documented by: DEDE Labs: Laboratory Tests 07/19/20 07/19/20 07/19/20 Range/Units 14:20 14:20 14:32 WBC 10.2 (4.0-11.0) K/uL RBC 4.27 (3.80-5.80) M/uL Hgb 12.5 (11.5-16.5) g/dL Hct 36.8 L (37.0-47.0) % MCV 86 (76-96) fL MCH 29.3 (27.0-32.0) pg MCHC 34.0 (31.0-35.0) g/dL RDW 13.4 (11.0-16.0) % Plt Count 241 (150-500) K/uL MPV 9.5 (6.0-10.0) fL Sodium 139 (136-145) mmol/L Potassium 3.7 (3.5-5.1) mmol/L Chloride 104 (98-107) mmol/L Carbon Dioxide 24.4 (21.0-32.0) mmol/L Anion Gap 14.3 (5.0-15.0) mmol/L BUN 6 L D (8-26) mg/dL Creatinine 0.94 (0.55-1.02) mg/dL Est Cr Clr Drug Dosing 58.83 mL/min Estimated GFR (MDRD) > 60 (>60) MLS/MIN BUN/Creatinine Ratio 6.4 (6-25) Glucose 97 D (74-100) mg/dL Calcium 8.3 L (8.5-10.1) mg/dL Urine Color Yellow Urine Appearance Cloudy (CLEAR) Urine pH 7.0 (5.0-8.0) Ur Specific [place] 1.020 (1.003-1.030) Urine Protein Trace H (NEGATIVE) mg/dL Urine Glucose (UA) Negative (NEGATIVE) mg/dL Urine Ketones Negative (NEGATIVE) mg/dL Urine Occult Blood Large H (NEGATIVE) Urine Nitrite Negative (NEGATIVE) Urine Bilirubin Negative (NEGATIVE) Urine Urobilinogen 0.2 (0.2-1.0) E.U./dL Ur Leukocyte Esterase Negative (NEGATIVE) Urine RBC >100 H /HPF Urine WBC Not seen /HPF Ur Squamous Epith Cells Few /HPF Meds: Medications Generic Name Dose Route Start Last Admin Trade Name Freq PRN Reason Stop Dose Admin Sodium Chloride 10 ml 07/19/20 14:08 07/19/20 14:14 Sodium Chloride 0.9% 10 Ml Syringe FLUSH 10 ml ASDIRECTED PRN Administration Keep Vein Open Discontinued Medications Generic Name Dose Route Start Last Admin Trade Name Freq PRN Reason Stop Dose Admin Sodium Chloride 1,000 mls @ 999 mls/hr 07/19/20 14:09 07/19/20 14:14 Normal Saline IV 07/19/20 15:09 999 mls/hr .BOLUS ONE Administration Ketorolac Tromethamine 30 mg 07/19/20 14:09 07/19/20 14:17 Ketorolac 30 Mg/Ml Sdv IVPUSH 07/19/20 14:10 30 mg ONETIME ONE Administration Ketorolac Tromethamine Confirm 07/19/20 14:27 07/19/20 14:22 Ketorolac 30 Mg/Ml Sdv Administered 07/19/20 14:28 Not Given Dose 30 mg .ROUTE .STK-MED ONE Morphine Sulfate Confirm 07/19/20 15:08 07/19/20 15:03 Morphine 4 Mg/Ml Vial Administered 07/19/20 15:09 Not Given Dose 4 mg .ROUTE .STK-MED ONE Morphine Sulfate 2 mg 07/19/20 15:02 07/19/20 15:02 Morphine 2 Mg/Ml Syringe IVPUSH 07/19/20 15:03 2 mg ONETIME ONE Administration Ondansetron HCl 4 mg 07/19/20 14:17 07/19/20 14:37 Ondansetron 4 Mg Tab.Dis PO 07/19/20 14:18 4 mg ONETIME ONE Administration Ondansetron HCl Confirm 07/19/20 14:37 07/19/20 14:51 Ondansetron 4 Mg Tab.Dis Administered 07/19/20 14:38 Not Given Dose 4 mg .ROUTE .STK-MED ONE - Re-Assessments/Exams Free Text/Narrative Re-Assessment/Exam: vitals WNL labs - no leukocytosis. normal kidney function UA ++ RBC CT abd/pelv showed a right 6mmproximal ureteral calculi at the UPJ with mild proximal hydronephrosis. Departure - Departure Time of Disposition: 15:26 Disposition: Home, Self-Care 01 Condition: Good Clinical Impression: Renal colic on left side, Ureteric colic - Discharge Information *PRESCRIPTION DRUG MONITORING PROGRAM REVIEWED*: Not Applicable *COPY OF PRESCRIPTION DRUG MONITORING REPORT IN PATIENT JENNIFER: Not Applicable Instructions: Kidney Stones, [id number] Referrals: PCP,None [Primary Care Provider] - Forms: ED Department Discharge Sepsis Event Note (ED) - Evaluation Sepsis Screening Result: No Definite Risk - Focused Exam Vital Signs: Vital Signs Temp Pulse Resp BP Pulse Ox 07/19/20 14:04 36.7 C 82 18 123/77 97 - Problem List & Annotations (1) Ureteric colic SNOMED Code(s): 39571927 Code(s): N23 - UNSPECIFIED RENAL COLIC Status: Acute Priority: Medium Current Visit: No (2) Renal calculi SNOMED Code(s): 25340591 Code(s): N20.0 - CALCULUS OF KIDNEY Status: Acute Priority: Low Current Visit: No (3) Right flank pain SNOMED Code(s): 438779846 Code(s): R10.9 - UNSPECIFIED ABDOMINAL PAIN Status: Acute Priority: Medium Current Visit: No - Problem List Review Problem List Initiated/Reviewed/Updated: Yes - My Orders Last 24 Hours: My Active Orders 07/19/20 14:08 Sodium Chloride 0.9% [Saline Flush] 10 ml FLUSH ASDIRECTED PRN Saline Lock Insert [OM.PC] Routine - Assessment/Plan Last 24 Hours: My Active Orders 07/19/20 14:08 Sodium Chloride 0.9% [Saline Flush] 10 ml FLUSH ASDIRECTED PRN Saline Lock Insert [OM.PC] Routine Plan: - increase fluids intake - take pain medications as prescribed - follow up with your PCP as needed - return to the ER if symptoms got worse or any concerns
[2020-07-19] MEDS: Sodium Chloride 0.9% 1,000 ML IV ONE (14:14)
[2020-07-19] MEDS: Sodium Chloride 0.9% 10 ML Syringe FLUSH PRN (14:14)
[2020-07-19] MEDS: Ketorolac 30 MG/ML SDV IVPUSH ONE (14:17)
[2020-07-19] MEDS ORDERED: Acetaminophen/HYDROcodone 325-5 MG Tab ONE (14:20)
[2020-07-19] MEDS: Ketorolac 30 MG/ML SDV ONE (14:22)
[2020-07-19] MEDS: Ondansetron 4 MG Tab.DIS PO ONE (14:37)
[2020-07-19] MEDS: Ondansetron 4 MG Tab.DIS ONE (14:51)
[2020-07-19] MEDS: Morphine 2 MG/ML SYRINGE IVPUSH ONE (15:02)
[2020-07-19] MEDS: Morphine 4 MG/ML VIAL ONE (15:03)
--- NOTE | 2020-07-19 15:13 | CT ---
DATE OF SERVICE: 07/19/20 CLINICAL DATA: RENAL COLIC Unenhanced abdomen and pelvic CT: Multislice acquisition through the abdomen and pelvis without IV or oral contrast was performed. Comparison is made to a prior exam dated 12 October 2019. The lung bases are clear. The heart size is normal. The liver is normal size with homogeneous attenuation. No focal hepatic lesions. The gallbladder appears normal. No calcified gallstones. The spleen appears normal. The pancreas appears normal. The right and left adrenals appear normal. There are numerous calcifications in the region of the renal pyramids bilaterally consistent with medullary sponge kidney. The left kidney is atrophy with cortical scarring and cortical thinning. There is a 6 mm proximal ureteral calculi on the right located at the ureteropelvic junction. There is mild hydronephrosis proximal to it. The bladder is partially fluid filled. There is diffuse bladder wall thickening. This is probably related to nondistention. Cystitis should be considered. No evidence of appendicitis. There is a large amount of mixed density material within the stomach consistent with ingested food. It is moderately distended. There is minimal diverticulosis of the descending and sigmoid colon. No evidence of diverticulitis. The patient is status post hysterectomy. No free air. No free fluid. No dilated loops of bowel. No adenopathy. No aortic aneurysm. Impression: 6 mm proximal ureteral calculi on right located at the ureteropelvic junction with proximal hydronephrosis. Multiple other findings as discussed above. MTDD
== END 2020-07-19 15:45 | disposition home or self-care (01) ==
LOC: LB.ED 13:26
DX: N13.2 Hydronephrosis with renal and ureteral calculous obstruction (principal); N23 Unspecified renal colic; K21.9 Gastro-esophageal reflux disease without esophagitis; Z79.899 Other long term (current) drug therapy
CPT/HCPCS: 36415; 74176; 80048; 81001; 85027; 96374; 96375; 99284-25; A9270-GY; J1885; J2270; J7030

== ENCOUNTER 2020-08-28 15:37 | Emergency (ER) | payer OTHER ==
[2020-08-28] MEDS ORDERED: Ketorolac 30 MG/ML SDV IVPUSH ONE (16:11)
[2020-08-28] MEDS ORDERED: Sodium Chloride 0.9% 10 ML Syringe FLUSH PRN (16:11)
[2020-08-28] MEDS ORDERED: Ondansetron 4 MG/2 ML SDV IVPUSH ONE (16:11)
--- NOTE | 2020-08-28 16:17 | EDM.PDOC ---
ED HPI GENERAL MEDICAL PROBLEM - General Chief Complaint: Genitourinary Problem Stated Complaint: POSSIBLE KIDNEY STONE Time Seen by Provider: 08/28/20 16:04 Source of Information: Reports: Patient History Limitations: Reports: No Limitations ( ) - History of Present Illness INITIAL COMMENTS - FREE TEXT/NARRATIVE: reports left flank pain since yesterday. gradually getting worse. h/o kidney stones in the past - last attack was a month ago. no fever or chills. but nausea. tried some hydrocodone - helped temporarily. pain radiating down to the groin. sharp 9 out of 10. Onset: Gradual Duration: Day(s): (1) Location: Reports: Abdomen, Radiates to (groin) Quality: Reports: Sharp, Stabbing Improves with: Reports: Medication Worsens with: Reports: None Bilateral Flank Pain Score (Numeric/FACES): 8 - Related Data Allergies Allergy/AdvReac Type Severity Reaction Status Date / Time No Known Allergies Allergy Verified 08/28/20 15:45 Home Meds: Home Meds Omeprazole [Prilosec] 20 mg PO DAILY 05/21/15 [History] Potassium Citrate 1 tab PO TID 06/22/18 [History] Ketorolac [Toradol] 10 mg PO Q6H PRN #10 tab 07/19/20 [Rx] Tamsulosin HCl [Flomax] 0.4 mg PO DAILY #7 cap.er.24h 07/19/20 [Rx] Past Medical History HEENT History: Reports: Impaired Vision Cardiovascular History: Reports: Aneurysm Gastrointestinal History: Reports: GERD Genitourinary History: Reports: Renal Calculus, UTI, Recurrent 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: Musculoskeletal History: Reports: Back Pain, Chronic Neurological History: Reports: Cerebral Aneurysms, CVA, Migraines, Other (See Below) Other Neuro History: 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 Psychiatric History: Reports: Anxiety, Depression - Infectious Disease History Infectious Disease History: Reports: Chicken Pox - Past Surgical History HEENT Surgical History: Reports: Other (See Below) Other HEENT Surgeries/Procedures: Aneurysm coil Cardiovascular Surgical History: Reports: Aneurysm GI Surgical History: Reports: None Female Surgical History: Reports: Hysterectomy - Past Imaging History Past Imaging History: Reports: Other (See Below) Social & Family History - Family History Family Medical History: No Pertinent Family History - Caffeine Use Caffeine Use: Reports: Coffee, Soda Caffeine Use Comment: usually drinks two cups per day. ED ROS GENERAL - Review of Systems Review Of Systems: See Below Constitutional: Reports: No Symptoms HEENT: Reports: No Symptoms Respiratory: Reports: No Symptoms Cardiovascular: Reports: No Symptoms : Reports: Flank Pain Musculoskeletal: Reports: No Symptoms Skin: Reports: No Symptoms Neurological: Reports: No Symptoms Psychiatric: Reports: No Symptoms ED EXAM, RENAL/ - Physical Exam Exam: See Below Exam Limited By: No Limitations General Appearance: Alert, WD/WN, No Apparent Distress Eye Exam: Bilateral Eye: EOMI Respiratory/Chest: No Respiratory Distress, Lungs Clear Cardiovascular: Normal Peripheral Pulses, Regular Rate, Rhythm GI/Abdominal: Normal Bowel Sounds, Soft, Non-Tender Back Exam: Normal Inspection Neurological: Alert, Oriented, No Motor/Sensory Deficits Course - Vital Signs Last Recorded V/S: Last Vital Signs Temp 36.5 C 08/28/20 17:53 Pulse 65 08/28/20 17:53 Resp 16 08/28/20 17:53 BP 107/58 L 08/28/20 17:53 Pulse Ox 98 08/28/20 17:53 - Orders/Labs/Meds Orders: Active Orders 24 hr Category Date Time Status Abdomen Pelvis wo Cont [CT] Stat Exams 08/28/20 17:22 Taken Sodium Chloride 0.9% [Normal Saline] 1,000 ml Med 08/28/20 16:30 Active IV ASDIRECTED Sodium Chloride 0.9% [Saline Flush] Med 08/28/20 16:11 Active 10 ml FLUSH ASDIRECTED PRN Saline Lock Insert [OM.PC] Routine Oth 08/28/20 16:11 Ordered Medication Orders Sodium Chloride (Normal Saline) 1,000 mls @ 999 mls/hr IV ASDIRECTED OLGA LIDIA Last Admin: 08/28/20 16:30 Dose: 999 mls/hr Documented by: LAZARO Sodium Chloride (Sodium Chloride 0.9% 10 Ml Syringe) 10 ml FLUSH ASDIRECTED PRN PRN Reason: Keep Vein Open Labs: Laboratory Tests 08/28/20 08/28/20 08/28/20 Range/Units 16:17 16:17 16:55 WBC 9.7 (4.0-11.0) K/uL RBC 4.57 (3.80-5.80) M/uL Hgb 13.6 (11.5-16.5) g/dL Hct 39.9 (37.0-47.0) % MCV 87 (76-96) fL MCH 29.8 (27.0-32.0) pg MCHC 34.1 (31.0-35.0) g/dL RDW 13.7 (11.0-16.0) % Plt Count 257 (150-500) K/uL MPV 9.5 (6.0-10.0) fL Sodium 140 (136-145) mmol/L Potassium 3.8 (3.5-5.1) mmol/L Chloride 103 (98-107) mmol/L Carbon Dioxide 25.0 (21.0-32.0) mmol/L Anion Gap 15.8 H (5.0-15.0) mmol/L BUN 8 D (8-26) mg/dL Creatinine 0.85 (0.55-1.02) mg/dL Est Cr Clr Drug Dosing 96.37 mL/min Estimated GFR (MDRD) > 60 (>60) MLS/MIN BUN/Creatinine Ratio 9.4 (6-25) Glucose 107 H (74-100) mg/dL Calcium 8.7 (8.5-10.1) mg/dL Urine Color Yellow Urine Appearance Clear (CLEAR) Urine pH 5.5 (5.0-8.0) Ur Specific [place] 1.025 (1.003-1.030) Urine Protein Negative (NEGATIVE) mg/dL Urine Glucose (UA) Negative (NEGATIVE) mg/dL Urine Ketones Negative (NEGATIVE) mg/dL Urine Occult Blood Small H (NEGATIVE) Urine Nitrite Negative (NEGATIVE) Urine Bilirubin Negative (NEGATIVE) Urine Urobilinogen 0.2 (0.2-1.0) E.U./dL Ur Leukocyte Esterase Negative (NEGATIVE) Urine RBC 10-20 H /HPF Urine WBC 0-5 H /HPF Ur Squamous Epith Cells Few /HPF Meds: Medications Generic Name Dose Route Start Last Admin Trade Name Freq PRN Reason Stop Dose Admin Sodium Chloride 1,000 mls @ 999 mls/hr 08/28/20 16:30 08/28/20 16:30 Normal Saline IV 999 mls/hr ASDIRECTED OLGA LIDIA Administration Sodium Chloride 10 ml 08/28/20 16:11 Sodium Chloride 0.9% 10 Ml Syringe FLUSH ASDIRECTED PRN Keep Vein Open Discontinued Medications Generic Name Dose Route Start Last Admin Trade Name Bharati PRN Reason Stop Dose Admin Ketorolac Tromethamine 30 mg 08/28/20 16:11 08/28/20 16:22 Ketorolac 30 Mg/Ml Sdv IVPUSH 08/28/20 16:12 30 mg ONETIME ONE Administration Ketorolac Tromethamine Confirm 08/28/20 16:29 08/28/20 16:51 Ketorolac 30 Mg/Ml Sdv Administered 08/28/20 16:30 Not Given Dose 30 mg .ROUTE .STK-MED ONE Morphine Sulfate 4 mg 08/28/20 17:23 08/28/20 17:27 Morphine 4 Mg/Ml Vial IVPUSH 08/28/20 17:24 4 mg ONETIME ONE Administration Morphine Sulfate Confirm 08/28/20 17:36 08/28/20 17:40 Morphine 4 Mg/Ml Vial Administered 08/28/20 17:37 Not Given Dose 4 mg .ROUTE .STK-MED ONE Ondansetron HCl 8 mg 08/28/20 16:11 08/28/20 16:22 Ondansetron 4 Mg/2 Ml Sdv IVPUSH 08/28/20 16:12 8 mg ONETIME ONE Administration Ondansetron HCl Confirm 08/28/20 16:30 08/28/20 16:52 Ondansetron 4 Mg/2 Ml Sdv Administered 08/28/20 16:31 Not Given Dose 8 mg .ROUTE .STK-MED ONE - Re-Assessments/Exams Free Text/Narrative Re-Assessment/Exam: pain was controlled with IV Toradol + Iv morphine labs were ordered - including CBC, BMP and UA nausea was controlled with Zofran 08/28/20 18:14 CT scan - right proximal ureter 6 mm stone with mild hydro Departure - Departure Time of Disposition: 18:14 Disposition: Home, Self-Care 01 Condition: Good Clinical Impression: Recurrent kidney stones, Ureteric colic - Discharge Information *PRESCRIPTION DRUG MONITORING PROGRAM REVIEWED*: Not Applicable *COPY OF PRESCRIPTION DRUG MONITORING REPORT IN PATIENT JENNIFER: Not Applicable Instructions: Renal Colic, [id number] Referrals: Chalo Dsouza MD [Primary Care Provider] - Forms: ED Department Discharge Additional Instructions: - take pain medications as prescribed - follow up with your PCP in 1-2 weeks - ask for a referral to Urology - increase fluids intake - return to the ER if symptoms got worse or any concerns Sepsis Event Note (ED) - Evaluation Sepsis Screening Result: No Definite Risk - Focused Exam Vital Signs: Vital Signs Temp Pulse Resp BP Pulse Ox 08/28/20 17:53 36.5 C 65 16 107/58 L 98 08/28/20 15:57 37.1 C 74 18 113/70 100 - Problem List & Annotations (1) Ureteric colic SNOMED Code(s): 20251088 Code(s): N23 - UNSPECIFIED RENAL COLIC Status: Acute Priority: Medium Current Visit: Yes (2) Recurrent kidney stones SNOMED Code(s): 7849757028262851 Code(s): N20.0 - CALCULUS OF KIDNEY Status: Acute Priority: Low Current Visit: Yes - Problem List Review Problem List Initiated/Reviewed/Updated: Yes - My Orders Last 24 Hours: My Active Orders 08/28/20 16:11 Sodium Chloride 0.9% [Saline Flush] 10 ml FLUSH ASDIRECTED PRN Saline Lock Insert [OM.PC] Routine 08/28/20 16:30 Sodium Chloride 0.9% [Normal Saline] 1,000 ml IV ASDIRECTED 08/28/20 17:22 Abdomen Pelvis wo Cont [CT] Stat - Assessment/Plan Last 24 Hours: My Active Orders 08/28/20 16:11 Sodium Chloride 0.9% [Saline Flush] 10 ml FLUSH ASDIRECTED PRN Saline Lock Insert [OM.PC] Routine 08/28/20 16:30 Sodium Chloride 0.9% [Normal Saline] 1,000 ml IV ASDIRECTED 08/28/20 17:22 Abdomen Pelvis wo Cont [CT] Stat Plan: - take pain medications as prescribed - follow up with your PCP in 1-2 weeks - ask for a referral to Urology - increase fluids intake - return to the ER if symptoms got worse or any concerns
[2020-08-28] MEDS ORDERED: Ketorolac 30 MG/ML SDV ONE (16:29)
[2020-08-28] MEDS ORDERED: Ondansetron 4 MG/2 ML SDV ONE (16:30)
[2020-08-28] MEDS ORDERED: Sodium Chloride 0.9% 1,000 ML IV SCH (16:30)
[2020-08-28] MEDS ORDERED: Morphine 4 MG/ML VIAL IVPUSH ONE (17:23)
[2020-08-28] MEDS ORDERED: Morphine 4 MG/ML VIAL ONE (17:36)
[2020-08-28 17:56] VITALS: BP 107/58; PULSE 65
[2020-08-28] MEDS ORDERED: Acetaminophen/HYDROcodone 325-5 MG Tab ONE (18:00)
--- NOTE | 2020-08-29 08:57 | CT ---
Date of Service: 08/28/20 Clinical Data: renal colic UNENHANCED ABDOMEN AND PELVIC CT: Multislice axial acquisition through the abdomen and pelvis without IV or oral contrast was performed. Comparison is made to a prior exam dated 07/19/20. There are mild atelectatic changes in the dependent portion of both lower lungs. The lung bases are otherwise clear. The heart size is normal. The liver is normal size with homogeneous attenuation. No focal hepatic lesions. The gallbladder appears normal. The spleen appears normal. The pancreas appears normal. The right and left adrenals appear normal. There is marked atrophy of the left kidney. There are calcifications in the region of the renal pyramids bilaterally consistent with medullary sponge kidney. There is a 6 mm right ureteral calculus located in the proximal right ureter at the L3 level. There is hydronephrosis proximal to it. The kidneys and collecting systems are otherwise unremarkable. The bladder is partially fluid filled. It appears normal. The patient is status post hysterectomy. There are low density lesions in both ovaries consistent with bilateral ovarian cysts. The appendix is not dilated. No evidence of appendicitis. No free air. No free fluid. No dilated loops of bowel. No adenopathy. No aortic aneurysm. There is a fat-containing umbilical hernia. No other significant findings. IMPRESSION: 6 mm proximal ureter al calculus on right with hydronephrosis proximally. Multiple other findings as discussed above. [id number] [facility]
== END 2020-08-28 18:21 | disposition home or self-care (01) ==
LOC: LB.ED 15:37
DX: N13.2 Hydronephrosis with renal and ureteral calculous obstruction (principal); K21.9 Gastro-esophageal reflux disease without esophagitis; Z79.899 Other long term (current) drug therapy
CPT/HCPCS: 36415; 74176; 80048; 81001; 85027; 96374; 96375; 99284; A9270; J1885; J2270; J2405; J7030

== ENCOUNTER 2020-10-08 09:56 | Emergency (ER) | payer OTHER ==
[2020-10-08] MEDS ORDERED: Ketorolac 30 MG/ML SDV IVPUSH ONE (10:14)
[2020-10-08] MEDS ORDERED: Sodium Chloride 0.9% 10 ML Syringe FLUSH PRN (10:14)
[2020-10-08] MEDS ORDERED: Ondansetron 4 MG/2 ML SDV IVPUSH ONE (10:14)
[2020-10-08] MEDS ORDERED: Sodium Chloride 0.9% 1,000 ML IV SCH (10:15)
--- NOTE | 2020-10-08 10:15 | EDM.PDOC ---
ED HPI GENERAL MEDICAL PROBLEM - General Chief Complaint: Abdominal Pain Stated Complaint: abdominal pain/kidney stones Time Seen by Provider: 10/08/20 10:15 Source of Information: Reports: Patient History Limitations: Reports: No Limitations - History of Present Illness INITIAL COMMENTS - FREE TEXT/NARRATIVE: patient presented to the ER with a c/o right flank pain. Reports a h/o ureteric stones in the past > 5. Is scheduled to see a urologist in 3 weeks - during October. Her last kidney stone episode was 4 weeks ago - also she saw her PCP 2 weeks ago for pain management. Denies fever or chills. Mild nausea but no emesis. She is on Flomax and has tried OTC pain meds but no effect. Denies changes in UOP. Eating and drinking ok reports pain as sharp and stabbing. Onset: Gradual Duration: Week(s): (2) Abdomen Pain Score (Numeric/FACES): 8 - Related Data Allergies Allergy/AdvReac Type Severity Reaction Status Date / Time No Known Allergies Allergy Verified 10/08/20 09:59 Home Meds: Home Meds Omeprazole [Prilosec] 20 mg PO DAILY 05/21/15 [History] Ketorolac [Toradol] 10 mg PO Q6H PRN #10 tab 07/19/20 [Rx] Tamsulosin HCl [Flomax] 0.4 mg PO DAILY #7 cap.er.24h 07/19/20 [Rx] Potassium Citrate 10 meq PO TID 10/08/20 [History] Past Medical History HEENT History: Reports: Impaired Vision Cardiovascular History: Reports: Aneurysm Gastrointestinal History: Reports: GERD Genitourinary History: Reports: Renal Calculus, UTI, Recurrent 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: Musculoskeletal History: Reports: Back Pain, Chronic Neurological History: Reports: Cerebral Aneurysms, CVA, Migraines, Other (See Below) Other Neuro History: 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 Psychiatric History: Reports: Anxiety, Depression - Infectious Disease History Infectious Disease History: Reports: Chicken Pox - Past Surgical History HEENT Surgical History: Reports: Other (See Below) Other HEENT Surgeries/Procedures: Aneurysm coil Cardiovascular Surgical History: Reports: Aneurysm GI Surgical History: Reports: None Female Surgical History: Reports: Hysterectomy - Past Imaging History Past Imaging History: Reports: Other (See Below) Social & Family History - Family History Family Medical History: No Pertinent Family History - Caffeine Use Caffeine Use: Reports: Coffee, Soda Caffeine Use Comment: usually drinks two cups per day. ED ROS GENERAL - Review of Systems Review Of Systems: See Below Constitutional: Reports: No Symptoms HEENT: Reports: No Symptoms Respiratory: Reports: No Symptoms Cardiovascular: Reports: No Symptoms : Reports: Flank Pain Musculoskeletal: Reports: No Symptoms Skin: Reports: No Symptoms Neurological: Reports: No Symptoms ED EXAM, RENAL/ - Physical Exam Exam: See Below Exam Limited By: No Limitations General Appearance: Alert, WD/WN, No Apparent Distress Eye Exam: Bilateral Eye: EOMI, PERRL Head: Atraumatic Respiratory/Chest: No Respiratory Distress Cardiovascular: Normal Peripheral Pulses GI/Abdominal: Normal Bowel Sounds Extremities: Normal Inspection Neurological: Alert, Oriented Psychiatric: Normal Affect Course - Vital Signs Last Recorded V/S: Last Vital Signs Temp 36.7 C 10/08/20 10:52 Pulse 87 10/08/20 10:52 Resp 16 10/08/20 10:52 BP 112/67 10/08/20 10:52 Pulse Ox 99 10/08/20 10:52 - Orders/Labs/Meds Orders: Active Orders 24 hr Category Date Time Status Sodium Chloride 0.9% [Normal Saline] 1,000 ml Med 10/08/20 10:15 Active IV ASDIRECTED Sodium Chloride 0.9% [Saline Flush] Med 10/08/20 10:14 Active 10 ml FLUSH ASDIRECTED PRN Saline Lock Insert [OM.PC] Routine Oth 10/08/20 10:14 Ordered Medication Orders Sodium Chloride (Normal Saline) 1,000 mls @ 500 mls/hr IV ASDIRECTED OLGA LIDIA Last Admin: 10/08/20 10:22 Dose: 500 mls/hr Documented by: WEEMAMY Sodium Chloride (Sodium Chloride 0.9% 10 Ml Syringe) 10 ml FLUSH ASDIRECTED PRN PRN Reason: Keep Vein Open Labs: Laboratory Tests 10/08/20 10/08/20 10/08/20 Range/Units 10:35 10:40 10:45 WBC 9.5 (4.0-11.0) K/uL RBC 4.81 (3.80-5.80) M/uL Hgb 14.0 (11.5-16.5) g/dL Hct 41.7 (37.0-47.0) % MCV 87 (76-96) fL MCH 29.1 (27.0-32.0) pg MCHC 33.6 (31.0-35.0) g/dL RDW 13.7 (11.0-16.0) % Plt Count 244 (150-500) K/uL MPV 9.9 (6.0-10.0) fL Sodium 138 (136-145) mmol/L Potassium 3.9 (3.5-5.1) mmol/L Chloride 98 (98-107) mmol/L Carbon Dioxide 27.7 (21.0-32.0) mmol/L Anion Gap 16.2 H (5.0-15.0) mmol/L BUN 8 (8-26) mg/dL Creatinine 0.95 (0.55-1.02) mg/dL Est Cr Clr Drug Dosing 86.22 mL/min Estimated GFR (MDRD) > 60 (>60) MLS/MIN BUN/Creatinine Ratio 8.4 (6-25) Glucose 105 H (74-100) mg/dL Calcium 8.5 (8.5-10.1) mg/dL Urine Color Yellow Urine Appearance Clear (CLEAR) Urine pH 6.5 (5.0-8.0) Ur Specific [place] 1.025 (1.003-1.030) Urine Protein Negative (NEGATIVE) mg/dL Urine Glucose (UA) Negative (NEGATIVE) mg/dL Urine Ketones Negative (NEGATIVE) mg/dL Urine Occult Blood Negative (NEGATIVE) Urine Nitrite Negative (NEGATIVE) Urine Bilirubin Negative (NEGATIVE) Urine Urobilinogen 0.2 (0.2-1.0) E.U./dL Ur Leukocyte Esterase Negative (NEGATIVE) Meds: Medications Generic Name Dose Route Start Last Admin Trade Name Freq PRN Reason Stop Dose Admin Sodium Chloride 1,000 mls @ 500 mls/hr 10/08/20 10:15 10/08/20 10:22 Normal Saline IV 500 mls/hr ASDIRECTED OLGA LIDIA Administration Sodium Chloride 10 ml 10/08/20 10:14 Sodium Chloride 0.9% 10 Ml Syringe FLUSH ASDIRECTED PRN Keep Vein Open Discontinued Medications Generic Name Dose Route Start Last Admin Trade Name Freq PRN Reason Stop Dose Admin Ketorolac Tromethamine 30 mg 10/08/20 10:14 10/08/20 10:24 Ketorolac 30 Mg/Ml Sdv IVPUSH 10/08/20 10:15 30 mg ONETIME ONE Administration Morphine Sulfate 4 mg 10/08/20 10:57 10/08/20 11:01 Morphine 4 Mg/Ml Vial IVPUSH 10/08/20 10:58 4 mg ONETIME ONE Administration Morphine Sulfate Confirm 10/08/20 11:10 10/08/20 11:09 Morphine 4 Mg/Ml Vial Administered 10/08/20 11:11 Not Given Dose 4 mg .ROUTE .STK-MED ONE Ondansetron HCl 4 mg 10/08/20 10:14 10/08/20 10:31 Ondansetron 4 Mg/2 Ml Sdv IVPUSH 10/08/20 10:15 4 mg ONETIME ONE Administration - Re-Assessments/Exams Free Text/Narrative Re-Assessment/Exam: vitals WNL labs were ordered including CBC, BMP and UA. IV line was established IV Toradol and Zofran were given - reports no improvement in pain control IV morphine was given - 4 mg - reports pain down from 8 to 4 and much more tolerable than before nausea has resolved 10/08/20 12:17 labs seems good. feeling better abd wants to go home Departure - Departure Time of Disposition: 12:17 Disposition: Home, Self-Care 01 Condition: Good Clinical Impression: Flank pain, chronic, Renal calculi - Discharge Information *PRESCRIPTION DRUG MONITORING PROGRAM REVIEWED*: Yes *COPY OF PRESCRIPTION DRUG MONITORING REPORT IN PATIENT JENNIFER: Yes Instructions: Kidney Stones Referrals: PCP,None [Primary Care Provider] - Forms: ED Department Discharge, ED Return to Work/School Form Sepsis Event Note (ED) - Focused Exam Vital Signs: Vital Signs Temp Pulse Resp BP Pulse Ox 10/08/20 10:52 36.7 C 87 16 112/67 99 - Problem List & Annotations (1) Ureteric colic SNOMED Code(s): 69450133 Code(s): N23 - UNSPECIFIED RENAL COLIC Status: Acute Priority: Medium Current Visit: No (2) Renal calculi SNOMED Code(s): 98403106 Code(s): N20.0 - CALCULUS OF KIDNEY Status: Acute Priority: Low Current Visit: Yes - Problem List Review Problem List Initiated/Reviewed/Updated: Yes - My Orders Last 24 Hours: My Active Orders 10/08/20 10:14 Sodium Chloride 0.9% [Saline Flush] 10 ml FLUSH ASDIRECTED PRN Saline Lock Insert [OM.PC] Routine 10/08/20 10:15 Sodium Chloride 0.9% [Normal Saline] 1,000 ml IV ASDIRECTED - Assessment/Plan Last 24 Hours: My Active Orders 10/08/20 10:14 Sodium Chloride 0.9% [Saline Flush] 10 ml FLUSH ASDIRECTED PRN Saline Lock Insert [OM.PC] Routine 10/08/20 10:15 Sodium Chloride 0.9% [Normal Saline] 1,000 ml IV ASDIRECTED Plan: - increase fluids intake - continue with flomax - follow up with your PCP in 3-7 days as needed - contact your urologist - ask if you can be seen sooner
[2020-10-08 10:54] VITALS: BP 112/67; PULSE 87
[2020-10-08] MEDS ORDERED: Morphine 4 MG/ML VIAL IVPUSH ONE (10:57)
[2020-10-08] MEDS ORDERED: Acetaminophen/HYDROcodone 325-5 MG Tab ONE ×2 (11:00→12:26)
[2020-10-08] MEDS ORDERED: Morphine 4 MG/ML VIAL ONE (11:10)
== END 2020-10-08 12:25 | disposition home or self-care (01) ==
LOC: LB.ED 09:56
DX: N20.0 Calculus of kidney (principal); N23 Unspecified renal colic; K21.9 Gastro-esophageal reflux disease without esophagitis; Z87.442 Personal history of urinary calculi; Z79.899 Other long term (current) drug therapy
CPT/HCPCS: 36415; 80048; 81003; 85027; 96374; 96375; 99284; A9270; J1885; J2270; J2405; J7030

== ENCOUNTER 2020-10-29 19:48 | Emergency (ER) | payer OTHER ==
[2020-10-29 20:22] VITALS: BP 133/69; PULSE 71
[2020-10-29] MEDS ORDERED: HYDROmorphone 4 MG/ML Syringe SUBCUT PRN (20:22)
[2020-10-29] MEDS ORDERED: Ondansetron 4 MG Tab.DIS PO PRN (20:29)
[2020-10-29] MEDS ORDERED: Acetaminophen/HYDROcodone 325-5 MG Tab ONE (20:30)
[2020-10-29] MEDS ORDERED: HYDROmorphone 2 MG/ML SDV ONE (20:35)
--- NOTE | 2020-10-29 20:35 | EDM.PDOC ---
ED HPI GENERAL MEDICAL PROBLEM - General Chief Complaint: Abdominal Pain Stated Complaint: Kidney Stones Time Seen by Provider: 10/29/20 20:20 Source of Information: Reports: Patient History Limitations: Reports: No Limitations - History of Present Illness INITIAL COMMENTS - FREE TEXT/NARRATIVE: This patient presents to the emergency department for evaluation of possible kidney stone. She has a long history of stones and does have one now that she knows of and is scheduled to have this taken care of by lithotripsy in a couple of days. She has had trouble today with increased pain, some nausea and an episode of vomiting. She has not had a fever with this. She denies other concerns or complaints. She does take Flomax on a regular basis. Onset: Today, Gradual Duration: Getting Worse Pelvic Pain Score (Numeric/FACES): 9 - Related Data Allergies Allergy/AdvReac Type Severity Reaction Status Date / Time No Known Allergies Allergy Verified 10/29/20 20:21 Home Meds: Home Meds Omeprazole [Prilosec] 20 mg PO DAILY 05/21/15 [History] Ketorolac [Toradol] 10 mg PO Q6H PRN #10 tab 07/19/20 [Rx] Tamsulosin HCl [Flomax] 0.4 mg PO DAILY #7 cap.er.24h 07/19/20 [Rx] Potassium Citrate 10 meq PO TID 10/08/20 [History] Past Medical History HEENT History: Reports: Impaired Vision Cardiovascular History: Reports: Aneurysm Gastrointestinal History: Reports: GERD Genitourinary History: Reports: Renal Calculus, UTI, Recurrent 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: Musculoskeletal History: Reports: Back Pain, Chronic Neurological History: Reports: Cerebral Aneurysms, CVA, Migraines, Other (See Below) Other Neuro History: 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 Psychiatric History: Reports: Anxiety, Depression - Infectious Disease History Infectious Disease History: Reports: Chicken Pox - Past Surgical History HEENT Surgical History: Reports: Other (See Below) Other HEENT Surgeries/Procedures: Aneurysm coil Cardiovascular Surgical History: Reports: Aneurysm GI Surgical History: Reports: None Female Surgical History: Reports: Hysterectomy - Past Imaging History Past Imaging History: Reports: Other (See Below) Social & Family History - Family History Family Medical History: No Pertinent Family History - Caffeine Use Caffeine Use: Reports: Coffee, Soda Caffeine Use Comment: usually drinks two cups per day. ED ROS GENERAL - Review of Systems Review Of Systems: See Below Constitutional: Denies: Fever HEENT: Reports: No Symptoms Respiratory: Reports: No Symptoms Cardiovascular: Reports: No Symptoms GI/Abdominal: Reports: Nausea, Vomiting. Denies: Abdominal Pain : Reports: Flank Pain. Denies: Dysuria, Frequency, Urgency Musculoskeletal: Reports: No Symptoms Skin: Reports: No Symptoms Neurological: Reports: No Symptoms ED EXAM, RENAL/ - Physical Exam Exam: See Below Exam Limited By: No Limitations General Appearance: Alert (I had a full ER) Eye Exam: Bilateral Eye: Normal Inspection, PERRL Ears: Normal External Exam Nose: Normal Inspection (Yes actually all 3 of them are) Throat/Mouth: Normal Inspection Head: Atraumatic, Normocephalic (Now that you mention it) Neck: Normal Inspection ( in the last 1 is the biggest toy packer of all and) Respiratory/Chest: No Respiratory Distress, No Accessory Muscle Use Back Exam: Normal Inspection Extremities: Normal Inspection Neurological: Alert, Oriented Psychiatric: Normal Affect Skin Exam: Warm, Dry Course - Vital Signs Last Recorded V/S: Last Vital Signs Temp 37.4 C 10/29/20 20:09 Pulse 71 10/29/20 20:09 Resp 16 10/29/20 20:09 BP 133/69 10/29/20 20:09 Pulse Ox 96 10/29/20 20:09 - Orders/Labs/Meds Orders: Active Orders 24 hr Category Date Time Status HYDROmorphone [Dilaudid] Med 10/29/20 20:22 Active 1 mg SUBCUT Q4H PRN Ondansetron [Zofran ODT] Med 10/29/20 20:29 Active 4 mg PO ONETIME PRN Medication Orders Hydromorphone HCl (Hydromorphone 4 Mg/Ml Syringe) 1 mg SUBCUT Q4H PRN PRN Reason: Abdominal Pain Last Admin: 10/29/20 20:33 Dose: 1 mg Documented by: LAZARO Ondansetron HCl (Ondansetron 4 Mg Tab.Dis) 4 mg PO ONETIME PRN PRN Reason: Nausea/Vomiting Last Admin: 10/29/20 20:33 Dose: 4 mg Documented by: LAZARO Labs: Laboratory Tests 10/29/20 Range/Units 19:57 Urine Color Yellow Urine Appearance Clear (CLEAR) Urine pH 6.0 (5.0-8.0) Ur Specific [place] 1.025 (1.003-1.030) Urine Protein 30 H (NEGATIVE) mg/dL Urine Glucose (UA) Negative (NEGATIVE) mg/dL Urine Ketones Negative (NEGATIVE) mg/dL Urine Occult Blood Moderate H (NEGATIVE) Urine Nitrite Negative (NEGATIVE) Urine Bilirubin Negative (NEGATIVE) Urine Urobilinogen 0.2 (0.2-1.0) E.U./dL Ur Leukocyte Esterase Negative (NEGATIVE) Urine RBC 40-50 H /HPF Urine WBC 0-5 H /HPF Ur Squamous Epith Cells Moderate /HPF Meds: Medications Generic Name Dose Route Start Last Admin Trade Name Freq PRN Reason Stop Dose Admin Hydromorphone HCl 1 mg 10/29/20 20:22 10/29/20 20:33 Hydromorphone 4 Mg/Ml Syringe SUBCUT 1 mg Q4H PRN Administration Abdominal Pain Ondansetron HCl 4 mg 10/29/20 20:29 10/29/20 20:33 Ondansetron 4 Mg Tab.Dis PO 4 mg ONETIME PRN Administration Nausea/Vomiting Discontinued Medications Generic Name Dose Route Start Last Admin Trade Name Freq PRN Reason Stop Dose Admin Hydromorphone HCl Confirm 10/29/20 20:35 10/29/20 20:32 Hydromorphone 2 Mg/Ml Sdv Administered 10/29/20 20:36 Not Given Dose 2 mg .ROUTE .STK-MED ONE Ondansetron HCl Confirm 10/29/20 20:40 10/29/20 20:33 Ondansetron 4 Mg Tab.Dis Administered 10/29/20 20:41 Not Given Dose 4 mg .ROUTE .STK-MED ONE - Re-Assessments/Exams Free Text/Narrative Re-Assessment/Exam: 10/29/20 20:48 This patient presents to the emergency department for evaluation of kidney stone. The differential diagnosis I did consider tonight included your ureteral lithiasis, UTI, pyelonephritis, colitis, GIB, diverticulitis, volvulus. Given her extensive history of stones and a urine that is significant for blood I am going to treat her pain as if it is from her stones. She does have a an appointment for lithotripsy scheduled for later this week. She was given IM Dilaudid in the emergency department and some Zofran. I also gave her some hydrocodone to keep her pain under control at home until her procedure. She is tolerating p.o. fluids well and is hemodynamically stable in the emergency department. She has follow-up scheduled for later this week. The patient was stable at the time of discharge. Departure - Departure Time of Disposition: 20:50 Disposition: DC/Tfer to [facility]04 Condition: Fair Clinical Impression: Kidney calculus - Discharge Information *PRESCRIPTION DRUG MONITORING PROGRAM REVIEWED*: No *COPY OF PRESCRIPTION DRUG MONITORING REPORT IN PATIENT JENNIFER: No Instructions: Kidney Stones Referrals: PCP,None [Primary Care Provider] - Forms: ED Department Discharge, ED Return to Work/School Form Care Plan Goals: keep your follow up appt with urology. Take pain medication as directed. Sepsis Event Note (ED) - Focused Exam Vital Signs: Vital Signs Temp Pulse Resp BP Pulse Ox 10/29/20 20:09 37.4 C 71 16 133/69 96 - My Orders Last 24 Hours: My Active Orders 10/29/20 20:22 HYDROmorphone [Dilaudid] 1 mg SUBCUT Q4H PRN 10/29/20 20:29 Ondansetron [Zofran ODT] 4 mg PO ONETIME PRN - Assessment/Plan Last 24 Hours: My Active Orders 10/29/20 20:22 HYDROmorphone [Dilaudid] 1 mg SUBCUT Q4H PRN 10/29/20 20:29 Ondansetron [Zofran ODT] 4 mg PO ONETIME PRN
[2020-10-29] MEDS ORDERED: Ondansetron 4 MG Tab.DIS ONE (20:40)
== END 2020-10-29 20:50 ==
LOC: LB.ED 19:48
DX: N20.0 Calculus of kidney (principal); K21.9 Gastro-esophageal reflux disease without esophagitis; Z79.899 Other long term (current) drug therapy; Z86.73 Personal history of transient ischemic attack (TIA), and cerebral infarction without residual deficits
CPT/HCPCS: 81001; 96372; 99284; A9270-GY; J1170

== ENCOUNTER 2021-01-07 12:14 | Emergency (ER) | payer BC, OTHER ==
--- NOTE | 2021-01-07 12:42 | EDM.PDOC ---
ED HPI GENERAL MEDICAL PROBLEM - General Chief Complaint: Genitourinary Problem Stated Complaint: kidney stones Time Seen by Provider: 01/07/21 12:15 Source of Information: Reports: Patient History Limitations: Reports: No Limitations - History of Present Illness INITIAL COMMENTS - FREE TEXT/NARRATIVE: 40-year-old female presents to the ED complaining of left CVA pain and left flank pain. Patient had acute onset of pain yesterday at approximately 10:00, patient has had similar pain from numerous kidney stones. Patient describes pain as an ache, that has not moved. Patient does not have any pain medications left at home to take. Patient describes this as an 8/10 on the pain scale. Positive for: Blood in her urine, nausea, medullary sponge kidney, multiple renal calculi on previous abdomen and pelvis imaging, known decreased renal function left kidney. Patient has a appointment scheduled with nephrology on 15 January. Last menstrual cycle 6 years ago secondary to hysterectomy. Per patient and ER nurse ketorolac is ineffective with patient's pain. Patient denies chest pain, shortness of breath, syncope/near syncope, constipation/diarrhea, difficulty swallowing, rashes, headaches, blurred vision. - Related Data Allergies Allergy/AdvReac Type Severity Reaction Status Date / Time No Known Allergies Allergy Verified 01/07/21 13:02 Home Meds: Home Meds Omeprazole [Prilosec] 20 mg PO DAILY 05/21/15 [History] Ketorolac [Toradol] 10 mg PO Q6H PRN #10 tab 07/19/20 [Rx] Tamsulosin HCl [Flomax] 0.4 mg PO DAILY #7 cap.er.24h 07/19/20 [Rx] Potassium Citrate 10 meq PO TID 10/08/20 [History] Acetaminophen/oxyCODONE [Percocet 325-5 MG] 1 each PO Q6HR PRN #10 tab 01/07/21 [Rx] Past Medical History HEENT History: Reports: Impaired Vision Cardiovascular History: Reports: Aneurysm Gastrointestinal History: Reports: GERD Genitourinary History: Reports: Renal Calculus, UTI, Recurrent 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: Musculoskeletal History: Reports: Back Pain, Chronic Neurological History: Reports: Cerebral Aneurysms, CVA, Migraines, Other (See Below) Other Neuro History: 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 Psychiatric History: Reports: Anxiety, Depression - Infectious Disease History Infectious Disease History: Reports: Chicken Pox - Past Surgical History HEENT Surgical History: Reports: Other (See Below) Other HEENT Surgeries/Procedures: Aneurysm coil Cardiovascular Surgical History: Reports: Aneurysm GI Surgical History: Reports: None Female Surgical History: Reports: Hysterectomy - Past Imaging History Past Imaging History: Reports: Other (See Below) Social & Family History - Family History Family Medical History: No Pertinent Family History - Caffeine Use Caffeine Use: Reports: Coffee, Soda Caffeine Use Comment: usually drinks two cups per day. ED ROS GENERAL - Review of Systems Review Of Systems: Comprehensive ROS is negative, except as noted in HPI. ED EXAM, RENAL/ - Physical Exam Exam: See Below Text/Narrative:: 40-year-old female presents to the ED for CVA tenderness on the left side accompanied by left flank pain. Patient is found sitting on the side of the bed in bay 1, patient in mild distress secondary to pain. Patient is alert and oriented GCS 4 5 6, speaking in full sentences, no obvious trauma Exam Limited By: No Limitations General Appearance: Alert, WD/WN, No Apparent Distress Eye Exam: Bilateral Eye: EOMI, PERRL Ears: Normal External Exam, Hearing Grossly Normal Nose: Normal Inspection, No Blood Head: Atraumatic, Normocephalic Respiratory/Chest: No Respiratory Distress, Lungs Clear, Normal Breath Sounds, No Accessory Muscle Use, Chest Non-Tender Cardiovascular: Normal Peripheral Pulses, Regular Rate, Rhythm, No Edema, No Gallop, No JVD, No Murmur, No Rub GI/Abdominal: Normal Bowel Sounds, Soft, No Distention, No Mass, Tender (Mildly tender left lower quadrant) Back Exam: CVA Tenderness (L). No: CVA Tenderness (R) Extremities: No Pedal Edema, Normal Capillary Refill Neurological: Alert, Oriented, Normal Cognition Psychiatric: Normal Affect, Normal Mood Skin Exam: Warm, Dry, Intact, Normal Color, No Rash Course - Orders/Labs/Meds Labs: Laboratory Tests 01/07/21 01/07/21 01/07/21 Range/Units 12:34 12:34 12:40 WBC 10.0 (4.0-11.0) K/uL RBC 5.08 (3.80-5.80) M/uL Hgb 14.8 (11.5-16.5) g/dL Hct 43.5 (37.0-47.0) % MCV 86 (76-96) fL MCH 29.1 (27.0-32.0) pg MCHC 34.0 (31.0-35.0) g/dL RDW 14.1 (11.0-16.0) % Plt Count 271 (150-500) K/uL MPV 9.6 (6.0-10.0) fL Neut % (Auto) 60.3 (45.0-70.0) % Lymph % (Auto) 32.0 (20.0-40.0) % [place] % (Auto) 6.2 (3.0-10.0) % Eos % (Auto) 1.2 (1.0-5.0) % Baso % (Auto) 0.3 (0.0-0.5) % Neut # (Auto) 6.05 (2.00-7.50) K/uL Lymph # (Auto) 3.21 (1.50-4.00) K/uL [place] # (Auto) 0.62 (0.20-0.80) K/uL Eos # (Auto) 0.12 (0.04-0.40) K/uL Baso # (Auto) 0.03 (0.02-0.10) K/uL Sodium 138 (136-145) mmol/L Potassium 3.9 (3.5-5.1) mmol/L Chloride 106 (98-107) mmol/L Carbon Dioxide 23.5 (21.0-32.0) mmol/L Anion Gap 12.4 (5.0-15.0) mmol/L BUN 5 L D (8-26) mg/dL Creatinine 0.92 (0.55-1.02) mg/dL Est Cr Clr Drug Dosing TNP Estimated GFR (MDRD) > 60 (>60) MLS/MIN BUN/Creatinine Ratio 5.4 L (6-25) Glucose 124 H D (74-100) mg/dL Calcium 8.9 (8.5-10.1) mg/dL Urine Color Yellow Urine Appearance Clear (CLEAR) Urine pH 6.5 (5.0-8.0) Ur Specific [place] 1.020 (1.003-1.030) Urine Protein Negative (NEGATIVE) mg/dL Urine Glucose (UA) Negative (NEGATIVE) mg/dL Urine Ketones Negative (NEGATIVE) mg/dL Urine Occult Blood Small H (NEGATIVE) Urine Nitrite Negative (NEGATIVE) Urine Bilirubin Negative (NEGATIVE) Urine Urobilinogen 0.2 (0.2-1.0) E.U./dL Ur Leukocyte Esterase Negative (NEGATIVE) Urine RBC 10-20 H /HPF Urine WBC 0-5 H /HPF Ur Squamous Epith Cells Few /HPF Meds: Medications Discontinued Medications Generic Name Dose Route Start Last Admin Trade Name Freq PRN Reason Stop Dose Admin Hydromorphone HCl 1 mg 01/07/21 12:50 01/07/21 12:30 Hydromorphone 2 Mg/Ml Sdv IM 01/07/21 12:51 1 mg ONETIME ONE Administration Ondansetron HCl 4 mg 01/07/21 12:51 01/07/21 12:30 Ondansetron 4 Mg Tab.Dis PO 01/07/21 12:52 4 mg ONETIME ONE Administration Departure - Departure Time of Disposition: 13:15 Disposition: Home, Self-Care 01 Condition: Good Clinical Impression: Acute flank pain, Kidney stone, Recurrent kidney stones - Discharge Information *PRESCRIPTION DRUG MONITORING PROGRAM REVIEWED*: No *COPY OF PRESCRIPTION DRUG MONITORING REPORT IN PATIENT JENNIFER: No Prescriptions: Acetaminophen/oxyCODONE [Percocet 325-5 MG] 1 each PO Q6HR PRN #10 tab PRN Reason: Pain (Severe 7-10) Instructions: Kidney Stones, [id number] Referrals: PCP,None [Primary Care Provider] - Forms: ED Department Discharge Additional Instructions: Take Oxycodone tab one every 6 hours as needed for pain - Assessment/Plan Assessment:: Based on patient's history, presentation, exam, symptoms are consistent with renal calculi, patient has previous imaging showing that she has frequent episodes of kidney stones, renal colic, medullary sponge kidney. Patient's experiencing pain that is similar if not exactly like previous episodes. Patient will be worked up for any infectious process, or electrolyte abnormality. Labs being negative, and recent CT showing multiple renal calculi no imaging will be done today. Patient to follow-up with primary care provider within the next 3 days. My suspicion for an intra-abdominal catastrophe is low, given patient's history, likewise my suspicion for cardiac source is low as patient has no cardiac history. Similarly patient is not secondary to hysterectomy. Plan: 40-year-old female present for CVA tenderness, left flank pain, left lower quadrant pain. ABC, history, exam, labs, ketorolac for pain, Zofran for nausea, patient education/shared decision-making, patient sent out with a prescription for pain medication for 3 days, patient to follow-up with primary care provider within the next 3 days.
[2021-01-07] MEDS ORDERED: HYDROmorphone 2 MG/ML SDV IM ONE (12:50)
[2021-01-07] MEDS ORDERED: Ondansetron 4 MG Tab.DIS PO ONE (12:51)
[2021-01-07] MEDS ORDERED: Acetaminophen/oxyCODONE 325-5 MG Tab ONE (13:00)
== END 2021-01-07 13:11 | disposition home or self-care (01) ==
LOC: LB.ED 12:14
DX: N20.0 Calculus of kidney (principal); K21.9 Gastro-esophageal reflux disease without esophagitis; Z90.710 Acquired absence of both cervix and uterus; Z79.899 Other long term (current) drug therapy
CPT/HCPCS: 36415; 80048; 81001; 85025; 96372; 99284; A9270-GY; J1170

== ENCOUNTER 2021-02-06 11:00 | Emergency (ER) | payer OTHER ==
[2021-02-06 11:17] VITALS: BP 127/60; PULSE 97
[2021-02-06] MEDS ORDERED: HYDROmorphone 2 MG/ML SDV IM ONE (12:20)
[2021-02-06] MEDS ORDERED: HYDROmorphone 2 MG/ML SDV ONE (12:20)
--- NOTE | 2021-02-06 12:20 | EDM.PDOC ---
ED HPI GENERAL MEDICAL PROBLEM - General Chief Complaint: Flank Pain Stated Complaint: KIDNEY STONES Time Seen by Provider: 02/06/21 11:10 - History of Present Illness INITIAL COMMENTS - FREE TEXT/NARRATIVE: Pt is here with C/O left flank pain for a few days. She rates her pain at 8/10. No falls or injuries. She has significant Hx of renal stones. She denies any hematuria or fever. She was taking [place] but ran out of them. She has seen Nephrology and Urology recently, and has another appt in a couple weeks. Left Middle Back Pain Score (Numeric/FACES): 8 - Related Data Allergies Allergy/AdvReac Type Severity Reaction Status Date / Time No Known Allergies Allergy Verified 02/06/21 11:13 Home Meds: Home Meds Omeprazole [Prilosec] 20 mg PO DAILY 05/21/15 [History] Tamsulosin HCl [Flomax] 0.4 mg PO DAILY #7 cap.er.24h 07/19/20 [Rx] Potassium Citrate 10 meq PO TID 10/08/20 [History] Past Medical History HEENT History: Reports: Impaired Vision Cardiovascular History: Reports: Aneurysm Gastrointestinal History: Reports: GERD Genitourinary History: Reports: Renal Calculus, UTI, Recurrent Other Genitourinary History: frequent kidney stones 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: Musculoskeletal History: Reports: Back Pain, Chronic Neurological History: Reports: Cerebral Aneurysms, CVA, Migraines, Other (See Below) Other Neuro History: 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 Psychiatric History: Reports: Anxiety, Depression - Infectious Disease History Infectious Disease History: Reports: Chicken Pox - Past Surgical History HEENT Surgical History: Reports: Other (See Below) Other HEENT Surgeries/Procedures: Aneurysm coil Cardiovascular Surgical History: Reports: Aneurysm GI Surgical History: Reports: None Female Surgical History: Reports: Hysterectomy - Past Imaging History Past Imaging History: Reports: Other (See Below) Social & Family History - Family History Family Medical History: No Pertinent Family History - Tobacco Use Tobacco Use Status *Q: Current Every Day Tobacco User Years of Tobacco use: 25 Packs/Tins Daily: 1 - Caffeine Use Caffeine Use: Reports: Coffee, Soda Caffeine Use Comment: usually drinks two cups per day. ED ROS GENERAL - Review of Systems Review Of Systems: Comprehensive ROS is negative, except as noted in HPI. : Reports: Flank Pain (on the left side.) ED EXAM, RENAL/ - Physical Exam Exam: See Below Back Exam: Other (left side mid back pain that radiates around to the side.) Course - Vital Signs Last Recorded V/S: Last Vital Signs Temp 98.2 F 02/06/21 11:16 Pulse 97 02/06/21 11:16 Resp 16 02/06/21 11:16 BP 127/60 02/06/21 11:16 Pulse Ox 97 02/06/21 11:16 - Orders/Labs/Meds Orders: Active Orders 24 hr Category Date Time Status Renal Comp [US] Timed Exams 02/08/21 11:33 Ordered CBC WITH AUTO DIFF [HEME] Stat Lab 02/06/21 11:31 Received Labs: Laboratory Tests 02/06/21 02/06/21 Range/Units 11:27 11:31 Sodium 138 (136-145) mmol/L Potassium 3.9 (3.5-5.1) mmol/L Chloride 102 (98-107) mmol/L Carbon Dioxide 25.1 (21.0-32.0) mmol/L Anion Gap 14.8 (5.0-15.0) mmol/L BUN 8 D (8-26) mg/dL Creatinine 0.89 (0.55-1.02) mg/dL Est Cr Clr Drug Dosing 91.10 mL/min Estimated GFR (MDRD) > 60 (>60) MLS/MIN BUN/Creatinine Ratio 9.0 (6-25) Glucose 101 H (74-100) mg/dL Calcium 8.5 (8.5-10.1) mg/dL Total Bilirubin 0.4 (0.0-1.0) mg/dL AST 14 L (15-37) U/L ALT 18 (12-78) U/L Alkaline Phosphatase 48 (46-116) U/L Total Protein 6.9 (6.4-8.2) g/dL Albumin 3.8 (3.4-5.0) g/dL Globulin 3.1 (2.2-4.2) g/dL Albumin/Globulin Ratio 1.2 (0.8-2.0) Urine Color Yellow Urine Appearance Clear (CLEAR) Urine pH 5.5 (5.0-8.0) Ur Specific [place] 1.025 (1.003-1.030) Urine Protein Negative (NEGATIVE) mg/dL Urine Glucose (UA) Negative (NEGATIVE) mg/dL Urine Ketones Negative (NEGATIVE) mg/dL Urine Occult Blood Trace-intact H (NEGATIVE) Urine Nitrite Negative (NEGATIVE) Urine Bilirubin Negative (NEGATIVE) Urine Urobilinogen 0.2 (0.2-1.0) E.U./dL Ur Leukocyte Esterase Negative (NEGATIVE) Urine RBC 0-5 H /HPF Urine WBC 0-5 H /HPF Ur Squamous Epith Cells Moderate /HPF Urine Bacteria Few /HPF - Re-Assessments/Exams Free Text/Narrative Re-Assessment/Exam: 02/06/21 12:[address] scan with her. She has had many of them over the last few years. Another option would be to get an U.S. and she would really like to do that instead of another CT. I think this is reasonable, in addition to looking for stones I want to know if there is any Hydronephrosis or Ureter. She will be scheduled for this in 2 days here in [place]. I advised her to come back in sooner if her symptoms get worse. She was given Dilaudid 1 mg subq. And a script for [place] #10 tabs. She agree's with the tx plan and has no further questions. Departure - Departure Time of Disposition: 12:15 Disposition: Home, Self-Care 01 Condition: Good Clinical Impression: Left flank pain - Discharge Information *PRESCRIPTION DRUG MONITORING PROGRAM REVIEWED*: Yes *COPY OF PRESCRIPTION DRUG MONITORING REPORT IN PATIENT JENNIFER: Yes Instructions: Kidney Stones, [id number], Dietary Guidelines to Help Prevent Kidney Stones Referrals: PCP,None [Primary Care Provider] - Forms: ED Department Discharge Additional Instructions: Complete ultrasound on 02/08. Follow dietary guidelines to reduce occurrence of recurring stones. Sepsis Event Note (ED) - Evaluation Sepsis Screening Result: No Definite Risk - Focused Exam Vital Signs: Vital Signs Temp Pulse Resp BP Pulse Ox 02/06/21 11:16 98.2 F 97 16 127/60 97 - My Orders Last 24 Hours: My Active Orders 02/06/21 11:31 CBC WITH AUTO DIFF [HEME] Stat 02/08/21 11:33 Renal Comp [US] Timed - Assessment/Plan Last 24 Hours: My Active Orders 02/06/21 11:31 CBC WITH AUTO DIFF [HEME] Stat 02/08/21 11:33 Renal Comp [US] Timed
== END 2021-02-06 12:15 | disposition home or self-care (01) ==
LOC: LB.ED 11:00
DX: R10.9 Unspecified abdominal pain (principal); K21.9 Gastro-esophageal reflux disease without esophagitis; Z72.0 Tobacco use; Z79.899 Other long term (current) drug therapy
CPT/HCPCS: 36415; 80053; 81001; 85025; 96372; 99284; J1170

== ENCOUNTER 2021-02-14 18:00 | Emergency (ER) | payer OTHER ==
[2021-02-14 18:10] VITALS: BP 110/62; PULSE 91
[2021-02-14] MEDS ORDERED: Ketorolac 30 MG/ML SDV IM ONE (18:34)
[2021-02-14] MEDS ORDERED: Acetaminophen/HYDROcodone 325-5 MG Tab PO ONE (19:22)
[2021-02-14] MEDS ORDERED: Ondansetron 4 MG Tab.DIS PO ONE (19:22)
[2021-02-14] MEDS ORDERED: Ondansetron 4 MG Tab.DIS ONE ×2 (19:29→19:50)
[2021-02-14] MEDS ORDERED: oxyCODONE 5 MG Tab ONE (19:31)
[2021-02-14] MEDS ORDERED: Acetaminophen/HYDROcodone 325-5 MG Tab ONE ×2 (19:32→19:50)
--- NOTE | 2021-02-14 20:43 | EDM.PDOC ---
ED HPI GENERAL MEDICAL PROBLEM - General Chief Complaint: Genitourinary Problem Stated Complaint: kidney stones Time Seen by Provider: 02/14/21 18:05 Source of Information: Reports: Patient History Limitations: Reports: No Limitations - History of Present Illness INITIAL COMMENTS - FREE TEXT/NARRATIVE: 41-year-old female presents the ED complaining of left flank pain. Patient was seen in the ED approximately 2 weeks ago for the same. Patient has not gotten back to baseline over the past 2 weeks. Pain increased today acutely causing the patient to show up with emergency department. Patient scribes the pain as sharp. Patient has a 7/10 on the pain scale. Patient has blood in her urine, and becomes nauseous with intense pain. Pertinent medical history: Per previous abdomen/pelvis CT patient has numerous stones in the kidney and ureter. Patient denies chest pain, shortness of breath, syncope/near syncope, vomiting, constipation/diarrhea, black tarry stool, hematochezia, no changes to urine smell, frequency, urgency. No recent trauma Left Posterior Flank Pain Score (Numeric/FACES): 5 - Related Data Allergies Allergy/AdvReac Type Severity Reaction Status Date / Time No Known Allergies Allergy Verified 02/14/21 18:02 Home Meds: Home Meds Omeprazole [Prilosec] 20 mg PO DAILY 05/21/15 [History] Tamsulosin HCl [Flomax] 0.4 mg PO DAILY #7 cap.er.24h 07/19/20 [Rx] Potassium Citrate 10 meq PO TID 10/08/20 [History] Acetaminophen/HYDROcodone [HYDROcodone-Acetaminophen 5-325 MG *] 1 tab PO Q6H PRN #10 each 02/14/21 [Rx] Escitalopram [Lexapro] 10 mg PO DAILY 02/14/21 [History] Ondansetron [Zofran ODT] 4 mg PO Q8H PRN #10 tab.dis 02/14/21 [Rx] Past Medical History HEENT History: Reports: Impaired Vision Cardiovascular History: Reports: Aneurysm Gastrointestinal History: Reports: GERD Genitourinary History: Reports: Renal Calculus, UTI, Recurrent Other Genitourinary History: frequent kidney stones 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: Musculoskeletal History: Reports: Back Pain, Chronic Neurological History: Reports: Cerebral Aneurysms, CVA, Migraines, Other (See Below) Other Neuro History: 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 Psychiatric History: Reports: Anxiety, Depression - Infectious Disease History Infectious Disease History: Reports: Chicken Pox - Past Surgical History HEENT Surgical History: Reports: Other (See Below) Other HEENT Surgeries/Procedures: Aneurysm coil Cardiovascular Surgical History: Reports: Aneurysm GI Surgical History: Reports: None Female Surgical History: Reports: Hysterectomy - Past Imaging History Past Imaging History: Reports: Other (See Below) Social & Family History - Family History Family Medical History: No Pertinent Family History - Tobacco Use Tobacco Use Status *Q: Current Every Day Tobacco User Years of Tobacco use: 25 Packs/Tins Daily: 1 - Caffeine Use Caffeine Use: Reports: Coffee, Soda Caffeine Use Comment: usually drinks two cups per day. ED ROS GENERAL - Review of Systems Review Of Systems: Comprehensive ROS is negative, except as noted in HPI. ED EXAM, RENAL/ - Physical Exam Exam: See Below Text/Narrative:: ABC intact. Moderate distress secondary to pain. No obvious trauma. Speaking in full sentences. Alert and oriented x3, GCS 456. Exam Limited By: No Limitations General Appearance: Alert, WD/WN, No Apparent Distress Respiratory/Chest: No Respiratory Distress, Lungs Clear, Normal Breath Sounds, No Accessory Muscle Use, Chest Non-Tender Cardiovascular: Normal Peripheral Pulses, Regular Rate, Rhythm, No Edema, No Gallop, No JVD, No Murmur, No Rub GI/Abdominal: Soft, Non-Tender, No Distention Back Exam: Normal Inspection. No: CVA Tenderness (R), CVA Tenderness (L) Neurological: Alert, Oriented, Normal Cognition Psychiatric: Normal Affect, Normal Mood Skin Exam: Warm, Dry, Intact, Normal Color, No Rash Course - Vital Signs Last Recorded V/S: Last Vital Signs Temp 99.2 F 02/14/21 18:09 Pulse 91 02/14/21 18:09 Resp 16 02/14/21 18:09 BP 110/62 02/14/21 18:09 Pulse Ox 99 02/14/21 18:09 - Orders/Labs/Meds Labs: Laboratory Tests 02/14/21 Range/Units 18:32 Urine Color Yellow Urine Appearance Clear (CLEAR) Urine pH 6.0 (5.0-8.0) Ur Specific [place] 1.025 (1.003-1.030) Urine Protein Negative (NEGATIVE) mg/dL Urine Glucose (UA) Negative (NEGATIVE) mg/dL Urine Ketones Negative (NEGATIVE) mg/dL Urine Occult Blood Trace-intact H (NEGATIVE) Urine Nitrite Negative (NEGATIVE) Urine Bilirubin Negative (NEGATIVE) Urine Urobilinogen 0.2 (0.2-1.0) E.U./dL Ur Leukocyte Esterase Negative (NEGATIVE) Urine RBC 0-5 H /HPF Urine WBC 0-5 H /HPF Ur Squamous Epith Cells Few /HPF Meds: Medications Discontinued Medications Generic Name Dose Route Start Last Admin Trade Name Freq PRN Reason Stop Dose Admin Hydrocodone Bitart/Acetaminophen 1 tab 02/14/21 19:22 02/14/21 19:25 Acetaminophen/Hydrocodone 325-5 Mg Tab PO 02/14/21 19:23 1 tab ONETIME ONE Administration Hydrocodone Bitart/Acetaminophen Confirm 02/14/21 19:32 02/14/21 19:25 Acetaminophen/Hydrocodone 325-5 Mg Tab Administered 02/14/21 19:33 Not Given Dose 1 tab .ROUTE .STK-MED ONE Ketorolac Tromethamine 30 mg 02/14/21 18:34 02/14/21 18:40 Ketorolac 30 Mg/Ml Sdv IM 02/14/21 18:35 30 mg ONETIME ONE Administration Ondansetron HCl Confirm 02/14/21 19:29 02/14/21 19:24 Ondansetron 4 Mg Tab.Dis Administered 02/14/21 19:30 Not Given Dose 4 mg .ROUTE .STK-MED ONE Ondansetron HCl 4 mg 02/14/21 19:22 02/14/21 19:24 Ondansetron 4 Mg Tab.Dis PO 02/14/21 19:23 4 mg ONETIME ONE Administration Oxycodone HCl Confirm 02/14/21 19:31 02/14/21 19:24 Oxycodone 5 Mg Tab Administered 02/14/21 19:32 Not Given Dose 5 mg .ROUTE .STK-MED ONE Departure - Departure Time of Disposition: 19:30 Disposition: Home, Self-Care 01 Condition: Good Clinical Impression: Recurrent kidney stones, Flank pain, chronic - Discharge Information *PRESCRIPTION DRUG MONITORING PROGRAM REVIEWED*: No *COPY OF PRESCRIPTION DRUG MONITORING REPORT IN PATIENT JENNIFER: No Instructions: Kidney Stones, [id number] Referrals: PCP,None [Primary Care Provider] - Forms: ED Department Discharge Additional Instructions: meds as discussed and follow up as discussed Sepsis Event Note (ED) - Evaluation Sepsis Screening Result: No Definite Risk - Focused Exam Vital Signs: Vital Signs Temp Pulse Resp BP Pulse Ox 02/14/21 18:09 99.2 F 91 16 110/62 99 - Assessment/Plan Assessment:: Patient has a known history of numerous kidney calculi, has been having problems recently for the last 2 weeks with pain in the stone has not passed. Patient is scheduled for ultrasound for same tomorrow. Will be seen by Dr. Dsouza on Friday. And will follow up with nephrology. Patient signs and symptoms are consistent with ureter stone. Other conditions were considered including pyelonephritis, urosepsis, trauma, appendicitis, diverticulitis, constipation. Patient is already on tamsulosin daily. Therefore ER visit is to address pain and nausea. Plan: ABC, history, exam, ketorolac 30 mg IM, Zofran 4 mg ODT, hydrocodone/acetaminophen, with pain control patient was educated/shared decision. -Patient and/or customer loyalty representative understood and agreed to treatment plan. -All questions were answered to the patient's satisfaction. -Patient is discharged in stable condition. Patient to return to the ED if symptoms increase or do not respond to treatment, patient develops a fever, dizzy lightheaded syncope/near syncope.. Follow-up with primary care provider within 3 days.
== END 2021-02-14 20:00 | disposition home or self-care (01) ==
LOC: LB.ED 18:00
DX: N20.0 Calculus of kidney (principal); K21.9 Gastro-esophageal reflux disease without esophagitis; Z86.73 Personal history of transient ischemic attack (TIA), and cerebral infarction without residual deficits; Z79.899 Other long term (current) drug therapy; Z72.0 Tobacco use
CPT/HCPCS: 81001; 96372; 99284; A9270-GY; J1885

== ENCOUNTER 2021-03-17 18:07 | Emergency (ER) | payer OTHER ==
[2021-03-17] MEDS ORDERED: Ketorolac 30 MG/ML SDV IM ONE (18:19)
[2021-03-17] MEDS ORDERED: Acetaminophen/HYDROcodone 325-5 MG Tab ONE (18:45)
[2021-03-17 18:59] VITALS: BP 104/60; PULSE 94
[2021-03-17] MEDS ORDERED: Acetaminophen/HYDROcodone 325-10 MG Tab PO ONE (19:08)
== END 2021-03-17 18:45 | disposition home or self-care (01) ==
LOC: LB.ED 18:07
DX: N20.2 Calculus of kidney with calculus of ureter (principal)
CPT/HCPCS: 96372; 99284; A9270-GY; J1885

== ENCOUNTER 2021-04-16 18:59 | Emergency (ER) | payer OTHER ==
[2021-04-16] MEDS: HYDROmorphone 2 MG/ML SDV IM ONE (19:22)
[2021-04-16] MEDS ORDERED: Acetaminophen/HYDROcodone 325-5 MG Tab ONE (20:00)
[2021-04-17 01:14] VITALS: BP 109/73; PULSE 82
== END 2021-04-16 20:44 | disposition home or self-care (01) ==
LOC: LB.ED 18:59
DX: N20.0 Calculus of kidney (principal); K21.9 Gastro-esophageal reflux disease without esophagitis; Z79.899 Other long term (current) drug therapy; Z86.73 Personal history of transient ischemic attack (TIA), and cerebral infarction without residual deficits
CPT/HCPCS: 36415; 74176; 80053; 81001; 85025; 96372; 99284; A9270; J1170

== ENCOUNTER 2021-05-03 19:29 | Emergency (ER) | payer OTHER ==
[2021-05-03] MEDS: Ketorolac 60 MG/2 ML SDV IM ONE (19:41)
[2021-05-03] MEDS: Sodium Chloride 0.9% 1,000 ML IV ONE (20:15)
[2021-05-03] MEDS: HYDROmorphone 2 MG/ML SDV IM ONE (20:27)
[2021-05-03 20:45] VITALS: BP 129/68; PULSE 80
[2021-05-03] MEDS ORDERED: Acetaminophen/HYDROcodone 325-5 MG Tab ONE (21:00)
== END 2021-05-03 21:21 | disposition home or self-care (01) ==
LOC: LB.ED 19:29
DX: N20.2 Calculus of kidney with calculus of ureter (principal); K21.9 Gastro-esophageal reflux disease without esophagitis; Z79.899 Other long term (current) drug therapy
CPT/HCPCS: 36415; 80053; 81001; 85025; 96372; 99283; A9270-GY; J1170; J1885; J7030

== ENCOUNTER 2021-05-21 20:34 | Emergency (ER) | payer OTHER ==
[2021-05-21] MEDS ORDERED: Acetaminophen/HYDROcodone 325-5 MG Tab ONE (21:00)
[2021-05-22 01:25] VITALS: BP 122/62; PULSE 81
== END 2021-05-21 21:02 | disposition home or self-care (01) ==
LOC: LB.ED 20:34
DX: R10.9 Unspecified abdominal pain (principal); G89.29 Other chronic pain; K21.9 Gastro-esophageal reflux disease without esophagitis; Z86.73 Personal history of transient ischemic attack (TIA), and cerebral infarction without residual deficits; Z79.899 Other long term (current) drug therapy
CPT/HCPCS: 99283; A9270

== ENCOUNTER 2021-06-24 18:20 | Emergency (ER) | payer OTHER ==
[2021-06-24] MEDS ORDERED: HYDROmorphone 2 MG/ML SDV ONE (18:35)
[2021-06-24 18:40] VITALS: BP 131/73; PULSE 90
[2021-06-24] MEDS ORDERED: Acetaminophen/HYDROcodone 325-5 MG Tab ONE (19:00)
== END 2021-06-24 19:17 | disposition home or self-care (01) ==
LOC: LB.ED 18:20
DX: R10.9 Unspecified abdominal pain (principal); G89.29 Other chronic pain; K21.9 Gastro-esophageal reflux disease without esophagitis; Z79.899 Other long term (current) drug therapy; Z72.0 Tobacco use
CPT/HCPCS: 81001; 99281; 99284; A9270-GY; J1170

== ENCOUNTER 2021-07-07 22:08 | Emergency (ER) | payer OTHER ==
[2021-07-07] MEDS: Acetaminophen 325 MG Tab PO ONE (22:35)
[2021-07-07] MEDS: Ketorolac 30 MG/ML SDV IVPUSH ONE (22:37)
[2021-07-07 22:44] VITALS: PULSE 81
[2021-07-07] MEDS: HYDROmorphone 2 MG/ML SDV IVPUSH ONE (22:55)
[2021-07-07] MEDS ORDERED: Acetaminophen/HYDROcodone 325-5 MG Tab ONE (23:00)
[2021-07-07 23:46] VITALS: BP 101/49
== END 2021-07-07 23:21 | disposition home or self-care (01) ==
LOC: LB.ED 22:08
DX: R10.9 Unspecified abdominal pain (principal); N20.1 Calculus of ureter; K21.9 Gastro-esophageal reflux disease without esophagitis; Z86.73 Personal history of transient ischemic attack (TIA), and cerebral infarction without residual deficits; Z79.899 Other long term (current) drug therapy
CPT/HCPCS: 36415; 81003; 85025; 96374; 96375; 99282; 99284-25; A9270-GY; J1170; J1885

== ENCOUNTER 2021-07-24 18:44 | Emergency (ER) | payer OTHER ==
[2021-07-24 18:54] VITALS: BP 120/72; PULSE 82
[2021-07-24] MEDS ORDERED: Ketorolac 30 MG/ML SDV IM ONE (19:11)
[2021-07-24] MEDS ORDERED: oxyCODONE 5 MG Tab PO ONE (19:43)
[2021-07-24] MEDS ORDERED: oxyCODONE 5 MG Tab ONE (19:58)
[2021-07-24] MEDS ORDERED: Acetaminophen/oxyCODONE 325-5 MG Tab ONE (20:00)
== END 2021-07-24 20:04 | disposition home or self-care (01) ==
LOC: LB.ED 18:44
DX: N23 Unspecified renal colic (principal); K21.9 Gastro-esophageal reflux disease without esophagitis; Z79.899 Other long term (current) drug therapy; Z86.73 Personal history of transient ischemic attack (TIA), and cerebral infarction without residual deficits
CPT/HCPCS: 36415; 80307; 81003; 85025; 96372; 99284; A9270; J1885; 99282

== ENCOUNTER 2021-08-25 19:50 | Emergency (ER) | payer OTHER ==
[2021-08-25] MEDS ORDERED: Acetaminophen/HYDROcodone 325-5 MG Tab ONE (20:15)
[2021-08-25 20:19] VITALS: BP 113/63; PULSE 80
== END 2021-08-25 20:30 | disposition home or self-care (01) ==
LOC: LB.ED 19:50
DX: N20.2 Calculus of kidney with calculus of ureter (principal); K21.9 Gastro-esophageal reflux disease without esophagitis; F17.210 Nicotine dependence, cigarettes, uncomplicated; Z79.899 Other long term (current) drug therapy
CPT/HCPCS: 99282; 99283; A9270-GY

== ENCOUNTER 2021-09-16 09:43 | Emergency (ER) | payer OTHER ==
[2021-09-16] MEDS ORDERED: Acetaminophen/HYDROcodone 325-5 MG Tab ONE (10:30)
[2021-09-16 10:36] VITALS: BP 124/72; PULSE 83
[2021-09-16 10:36] LABS: ESTIMATED GFR 85 mL/min (>60)
== END 2021-09-16 10:43 | disposition home or self-care (01) ==
LOC: LB.ED 09:43
DX: R10.9 Unspecified abdominal pain (principal); K21.9 Gastro-esophageal reflux disease without esophagitis; Z79.899 Other long term (current) drug therapy; Z86.73 Personal history of transient ischemic attack (TIA), and cerebral infarction without residual deficits
CPT/HCPCS: 36415; 80053; 81001; 85025; 99284; A9270-GY

== ENCOUNTER 2022-05-21 19:48 | Emergency (ER) | payer BC ==
[2022-05-21] MEDS ORDERED: Ketorolac 60 MG/2 ML SDV IM ONE (20:05)
[2022-05-21] MEDS ORDERED: Ondansetron 4 MG Tab.DIS PO ONE (20:05)
[2022-05-21] MEDS ORDERED: Ondansetron 4 MG Tab.DIS ONE ×2 (20:38→20:39)
[2022-05-21] MEDS ORDERED: Acetaminophen/HYDROcodone 325-5 MG Tab ONE (20:38)
[2022-05-21] MEDS ORDERED: Ketorolac 60 MG/2 ML SDV ONE (20:38)
[2022-05-21] MEDS ORDERED: Ciprofloxacin 500 MG Tab ONE (20:38)
[2022-05-21 21:28] VITALS: BP 108/68; PULSE 72
== END 2022-05-21 21:25 | disposition home or self-care (01) ==
LOC: LB.ED 19:48 → SUPCPDRO 19:48 → LB.ED 21:25
DX: N23 Unspecified renal colic (principal); K21.9 Gastro-esophageal reflux disease without esophagitis; Z79.899 Other long term (current) drug therapy; Z86.73 Personal history of transient ischemic attack (TIA), and cerebral infarction without residual deficits; Z87.442 Personal history of urinary calculi
CPT/HCPCS: 81001; 96372; 99283; J1885; Q0162; A9270-GY

== ENCOUNTER 2022-06-24 20:00 | Emergency (ER) | payer BC ==
[2022-06-24] MEDS ORDERED: Morphine 4 MG/ML VIAL IVPUSH ONE (20:17)
[2022-06-24] MEDS ORDERED: Ketorolac 60 MG/2 ML SDV IVPUSH ONE (20:17)
[2022-06-24] MEDS ORDERED: Ondansetron 4 MG/2 ML SDV IVPUSH ONE (20:17)
[2022-06-24] MEDS ORDERED: Morphine 4 MG/ML VIAL ONE (20:45)
[2022-06-24] MEDS ORDERED: Ketorolac 30 MG/ML SDV ONE (20:45)
[2022-06-24] MEDS ORDERED: Ondansetron 4 MG/2 ML SDV ONE (20:45)
[2022-06-24] MEDS ORDERED: Acetaminophen/HYDROcodone 325-5 MG Tab PO ONE (21:54)
[2022-06-24] MEDS ORDERED: Acetaminophen/HYDROcodone 325-5 MG Tab ONE (22:19)
[2022-06-24 22:48] VITALS: BP 109/71; PULSE 70
== END 2022-06-24 22:25 | disposition home or self-care (01) ==
LOC: LB.ED 20:00
DX: N20.2 Calculus of kidney with calculus of ureter (principal); K21.9 Gastro-esophageal reflux disease without esophagitis; Z79.899 Other long term (current) drug therapy
CPT/HCPCS: 36415; 74176; 80053; 81001; 85025; 96374; 96375; 99283; 99284-25; A9270-GY; J1885; J2270; J2405

== ENCOUNTER 2023-06-25 17:23 | Emergency (ER) | payer BC ==
[2023-06-25] MEDS: Sodium Chloride 0.9% 1,000 ML IV ONE (17:56)
[2023-06-25] MEDS: Ondansetron 4 MG/2 ML SDV IVPUSH ONE (17:59)
[2023-06-25] MEDS: Ketorolac 30 MG/ML SDV IVPUSH ONE (17:59)
[2023-06-25 18:12] LABS: APPEARANCE,URINE CLEAR (CLEAR); BILIRUBIN,URINE NEGATIVE (NEGATIVE); COLOR,URINE YELLOW; GLUCOSE,URINE NEGATIVE (NEGATIVE); KETONES,URINE NEGATIVE (NEGATIVE); LEUKOCYTE ESTERASE,URINE NEGATIVE (NEGATIVE); NITRITE,URINE NEGATIVE (NEGATIVE); OCCULT BLOOD,URINE TRACE-INTACT (NEGATIVE); PH,URINE 5.5 (5.0-8.0); PROTEIN,URINE NEGATIVE (NEGATIVE); UROBILINOGEN,URINE 0.2 E.U./dL (0.2-1.0)
[2023-06-25 18:18] LABS: BASOPHILS ABSOLUTE AUTO 0.02 K/uL (0.02-0.10); BASOPHILS PERCENT AUTO 0.2 % (0.0-0.5); EOSINOPHILS ABSOLUTE AUTO 0.18 K/uL (0.04-0.40); EOSINOPHILS PERCENT AUTO 1.8 % (1.0-5.0); HEMATOCRIT 37.7 % (37.0-47.0); HEMOGLOBIN 12.6 g/dL (11.5-16.5); LYMPHOCYTES ABSOLUTE AUTO 2.87 K/uL (1.50-4.00); LYMPHOCYTES PERCENT AUTO 29.5 % (20.0-40.0); MEAN CORPUSCULAR HEMOGLOBIN 28.5 pg (27.0-32.0); MEAN CORPUSCULAR HGB CONC 33.4 g/dL (31.0-35.0); MEAN CORPUSCULAR VOLUME 85 fL (76-96); MEAN PLATELET VOLUME 9.4 fL (6.0-10.0); MONOCYTES ABSOLUTE AUTO 0.77 K/uL (0.20-0.80); MONOCYTES PERCENT AUTO 7.9 % (3.0-10.0); NEUTROPHILS ABSOLUTE AUTO 5.89 K/uL (2.00-7.50); NEUTROPHILS PERCENT AUTO 60.6 % (45.0-70.0); PLATELET COUNT,PLT 271 K/uL (150-500); RED BLOOD CELL COUNT 4.42 M/uL (3.80-5.80); RED CELL DISTRIBUTION WIDTH 14.5 % (11.0-16.0); WHITE BLOOD CELL COUNT,WBC 9.7 K/uL (4.0-11.0)
[2023-06-25 18:18] LABS: SQUAMOUS EPITHELIAL CELLS,UR FEW /HPF
[2023-06-25 18:28] LABS: A/G RATIO 1.1 (0.8-2.0); ALBUMIN 3.4 g/dL (3.4-5.0); ANION GAP 15.2 mmol/L (5.0-15.0); BILIRUBIN TOTAL 0.2 mg/dL (0.0-1.0); BUN/CREATININE RATIO 9.9 (6-25); CALCIUM 8.5 mg/dL (8.5-10.1); CARBON DIOXIDE,CO2 26.4 mmol/L (21.0-32.0); CREATININE 1.11 mg/dL (0.55-1.02); EST CRCL DRUG DOSING (CG) 71.54 mL/min; POTASSIUM,K 4.6 mmol/L (3.5-5.1); PROTEIN TOTAL,TP 6.5 g/dL (6.4-8.2)
[2023-06-25 18:42] VITALS: PULSE 71
[2023-06-25] MEDS: HYDROmorphone 2 MG/ML Syringe IVPUSH ONE (18:48)
[2023-06-25] MEDS: Ondansetron 4 MG/2 ML SDV ONE (18:49)
[2023-06-25] MEDS: HYDROmorphone 2 MG/ML Syringe ONE (18:49)
[2023-06-25] MEDS: Ketorolac 60 MG/2 ML SDV ONE (18:49)
[2023-06-25] MEDS ORDERED: Acetaminophen/HYDROcodone 325-5 MG Tab ONE (19:00)
[2023-06-25 19:21] VITALS: BP 122/62
== END 2023-06-25 19:10 | disposition home or self-care (01) ==
LOC: LB.ED 17:23
DX: N20.1 Calculus of ureter (principal); F17.210 Nicotine dependence, cigarettes, uncomplicated
CPT/HCPCS: 36415; 80053; 81001; 85025; 96374; 96375; 99283; 99284-25; A9270-GY; J1170; J1885; J2405; J7030

== ENCOUNTER 2023-08-25 20:27 | Emergency (ER) | payer BC ==
[2023-08-25 20:44] VITALS: BP 109/72; PULSE 89
[2023-08-25 21:19] LABS: APPEARANCE,URINE CLEAR (CLEAR); BILIRUBIN,URINE NEGATIVE (NEGATIVE); COLOR,URINE YELLOW; GLUCOSE,URINE NEGATIVE (NEGATIVE); KETONES,URINE NEGATIVE (NEGATIVE); LEUKOCYTE ESTERASE,URINE NEGATIVE (NEGATIVE); NITRITE,URINE NEGATIVE (NEGATIVE); OCCULT BLOOD,URINE TRACE-INTACT (NEGATIVE); PROTEIN,URINE NEGATIVE (NEGATIVE); UROBILINOGEN,URINE 0.2 E.U./dL (0.2-1.0)
[2023-08-25 21:20] LABS: EPITHELIAL CELLS,URINE OCCASIONAL /HPF; RBC,URINE 0-5 /HPF; WBC,URINE NOT SEEN /HPF
[2023-08-25] MEDS: Ondansetron 4 MG Tab.DIS PO ONE (21:42)
[2023-08-25] MEDS: Ondansetron 4 MG Tab.DIS ONE (21:46)
[2023-08-25] MEDS: HYDROmorphone 2 MG/ML Syringe SUBCUT SCH (22:14)
[2023-08-26] MEDS: HYDROmorphone 2 MG/ML Syringe ONE (14:17)
== END 2023-08-25 23:09 | disposition home or self-care (01) ==
LOC: LB.ED 20:27 → MERGE 20:27 → LB.ED 23:09
DX: N20.0 Calculus of kidney (principal); K57.30 Diverticulosis of large intestine without perforation or abscess without bleeding; K21.9 Gastro-esophageal reflux disease without esophagitis; Z90.710 Acquired absence of both cervix and uterus; Z79.891 Long term (current) use of opiate analgesic; Z79.899 Other long term (current) drug therapy
CPT/HCPCS: 74176; 81001; 96372; 99283; 99284; J1170; Q0162

== ENCOUNTER 2023-09-17 19:40 | Emergency (ER) | payer BC ==
[2023-09-17 19:46] VITALS: BP 126/73; PULSE 94
[2023-09-17] MEDS ORDERED: Naloxone 2 MG/2 ML Syringe IVPUSH PRN (20:01)
[2023-09-17] MEDS: Ketorolac 30 MG/ML SDV IM ONE (20:04)
[2023-09-17] MEDS: HYDROmorphone 2 MG/ML Syringe IM ONE (20:05)
[2023-09-17 20:08] LABS: APPEARANCE,URINE CLEAR (CLEAR); BILIRUBIN,URINE NEGATIVE (NEGATIVE); COLOR,URINE YELLOW; GLUCOSE,URINE NEGATIVE (NEGATIVE); KETONES,URINE NEGATIVE (NEGATIVE); LEUKOCYTE ESTERASE,URINE NEGATIVE (NEGATIVE); NITRITE,URINE NEGATIVE (NEGATIVE); OCCULT BLOOD,URINE TRACE-INTACT (NEGATIVE); PROTEIN,URINE NEGATIVE (NEGATIVE); RBC,URINE 0-5 /HPF; UROBILINOGEN,URINE 0.2 E.U./dL (0.2-1.0); WBC,URINE NOT SEEN /HPF
[2023-09-17] MEDS ORDERED: Acetaminophen/HYDROcodone 325-5 MG Tab ONE (20:30)
[2023-09-19] MEDS: HYDROmorphone 2 MG/ML Syringe ONE (08:43)
[2023-09-19] MEDS: Ketorolac 30 MG/ML SDV ONE (08:43)
== END 2023-09-17 20:15 | disposition home or self-care (01) ==
LOC: LB.ED 19:40
DX: N20.0 Calculus of kidney (principal); K21.9 Gastro-esophageal reflux disease without esophagitis; Z90.710 Acquired absence of both cervix and uterus; Z79.899 Other long term (current) drug therapy
CPT/HCPCS: 81001; 96372; 99284; J1170; J1885; A9270-GY

== ENCOUNTER 2023-09-23 08:14 | Emergency (ER) | payer BC ==
[2023-09-23] MEDS: Sodium Chloride 0.9% 1,000 ML IV ONE (08:51)
[2023-09-23] MEDS: Ketorolac 30 MG/ML SDV ONE (08:52)
[2023-09-23] MEDS: Ketorolac 30 MG/ML SDV IVPUSH ONE (08:52)
[2023-09-23 08:58] LABS: BASOPHILS ABSOLUTE AUTO 0.05 K/uL (0.02-0.10); BASOPHILS PERCENT AUTO 0.4 % (0.0-0.5); EOSINOPHILS ABSOLUTE AUTO 0.16 K/uL (0.04-0.40); EOSINOPHILS PERCENT AUTO 1.4 % (1.0-5.0); HEMATOCRIT 39.2 % (37.0-47.0); HEMOGLOBIN 13.2 g/dL (11.5-16.5); LYMPHOCYTES ABSOLUTE AUTO 2.89 K/uL (1.50-4.00); LYMPHOCYTES PERCENT AUTO 25.9 % (20.0-40.0); MEAN CORPUSCULAR HEMOGLOBIN 28.4 pg (27.0-32.0); MEAN CORPUSCULAR HGB CONC 33.7 g/dL (31.0-35.0); MEAN CORPUSCULAR VOLUME 84 fL (76-96); MEAN PLATELET VOLUME 9.3 fL (6.0-10.0); MONOCYTES ABSOLUTE AUTO 0.79 K/uL (0.20-0.80); MONOCYTES PERCENT AUTO 7.1 % (3.0-10.0); NEUTROPHILS ABSOLUTE AUTO 7.27 K/uL (2.00-7.50); NEUTROPHILS PERCENT AUTO 65.2 % (45.0-70.0); PLATELET COUNT,PLT 234 K/uL (150-500); RED BLOOD CELL COUNT 4.65 M/uL (3.80-5.80); RED CELL DISTRIBUTION WIDTH 14.3 % (11.0-16.0); WHITE BLOOD CELL COUNT,WBC 11.2 K/uL (4.0-11.0)
[2023-09-23 09:06] LABS: APPEARANCE,URINE CLEAR (CLEAR); BILIRUBIN,URINE NEGATIVE (NEGATIVE); COLOR,URINE YELLOW; GLUCOSE,URINE NEGATIVE (NEGATIVE); KETONES,URINE NEGATIVE (NEGATIVE); LEUKOCYTE ESTERASE,URINE NEGATIVE (NEGATIVE); NITRITE,URINE NEGATIVE (NEGATIVE); OCCULT BLOOD,URINE TRACE-INTACT (NEGATIVE); PH,URINE 6.5 (5.0-8.0); PROTEIN,URINE NEGATIVE (NEGATIVE); UROBILINOGEN,URINE 0.2 E.U./dL (0.2-1.0)
[2023-09-23 09:14] LABS: SQUAMOUS EPITHELIAL CELLS,UR OCCASIONAL /HPF; WBC,URINE 0-5 /HPF
[2023-09-23] MEDS: HYDROmorphone 2 MG/ML Syringe IVPUSH ONE (09:26)
[2023-09-23 09:27] LABS: A/G RATIO 1.1 (0.8-2.0); ALBUMIN 3.5 g/dL (3.4-5.0); ANION GAP 13.9 mmol/L (5.0-15.0); BILIRUBIN TOTAL 0.4 mg/dL (0.0-1.0); CALCIUM 8.4 mg/dL (8.5-10.1); CARBON DIOXIDE,CO2 24.4 mmol/L (21.0-32.0); EST CRCL DRUG DOSING (CG) 79.4 mL/min; POTASSIUM,K 4.3 mmol/L (3.5-5.1); PROTEIN TOTAL,TP 6.7 g/dL (6.4-8.2)
[2023-09-23 09:55] VITALS: BP 128/75; PULSE 66
[2023-09-24] MEDS: HYDROmorphone 2 MG/ML Syringe ONE (11:01)
== END 2023-09-23 09:51 | disposition home or self-care (01) ==
LOC: LB.ED 08:14
DX: R10.9 Unspecified abdominal pain (principal); K21.9 Gastro-esophageal reflux disease without esophagitis; Z90.710 Acquired absence of both cervix and uterus; F17.210 Nicotine dependence, cigarettes, uncomplicated; Z79.899 Other long term (current) drug therapy
CPT/HCPCS: 36415; 80053; 81001; 85025; 96374; 96375; 99284; 99284-25; J1170; J1885; J7030

== ENCOUNTER 2023-10-12 18:52 | Emergency (ER) | payer BC, OTHER ==
[2023-10-12 20:25] LABS: APPEARANCE,URINE CLEAR (CLEAR); BILIRUBIN,URINE NEGATIVE (NEGATIVE); COLOR,URINE YELLOW; GLUCOSE,URINE NEGATIVE (NEGATIVE); KETONES,URINE NEGATIVE (NEGATIVE); LEUKOCYTE ESTERASE,URINE NEGATIVE (NEGATIVE); NITRITE,URINE NEGATIVE (NEGATIVE); OCCULT BLOOD,URINE TRACE-INTACT (NEGATIVE); PH,URINE 6.5 (5.0-8.0); PROTEIN,URINE NEGATIVE (NEGATIVE); UROBILINOGEN,URINE 0.2 E.U./dL (0.2-1.0)
[2023-10-12 20:26] LABS: RBC,URINE 0-5 /HPF; SQUAMOUS EPITHELIAL CELLS,UR OCCASIONAL /HPF; WBC,URINE NOT SEEN /HPF
[2023-10-12 20:27] VITALS: BP 117/73; PULSE 66
[2023-10-12] MEDS: HYDROmorphone 2 MG/ML Syringe IM SCH (20:52)
[2023-10-12] MEDS: HYDROmorphone 2 MG/ML Syringe ONE (20:53)
== END 2023-10-12 20:39 | disposition home or self-care (01) ==
LOC: LB.ED 18:52
DX: N20.0 Calculus of kidney (principal); F17.210 Nicotine dependence, cigarettes, uncomplicated; Z79.899 Other long term (current) drug therapy
CPT/HCPCS: 81001; 96372; 99284; J1170

== ENCOUNTER 2023-10-21 20:35 | Emergency (ER) | payer BC, OTHER ==
[2023-10-21] MEDS ORDERED: Sodium Chloride 0.9% 10 ML Syringe FLUSH PRN (20:45)
[2023-10-21] MEDS: Ketorolac 30 MG/ML SDV IVPUSH SCH (20:56)
[2023-10-21] MEDS: Ondansetron 4 MG/2 ML SDV IVPUSH ONE (21:03)
[2023-10-21] MEDS: Ondansetron 4 MG/2 ML SDV ONE (21:05)
[2023-10-21] MEDS: Ketorolac 30 MG/ML SDV ONE (21:05)
[2023-10-21 21:22] LABS: APPEARANCE,URINE CLEAR (CLEAR); BILIRUBIN,URINE NEGATIVE (NEGATIVE); COLOR,URINE YELLOW; GLUCOSE,URINE NEGATIVE (NEGATIVE); KETONES,URINE NEGATIVE (NEGATIVE); LEUKOCYTE ESTERASE,URINE NEGATIVE (NEGATIVE); NITRITE,URINE NEGATIVE (NEGATIVE); OCCULT BLOOD,URINE NEGATIVE (NEGATIVE); PROTEIN,URINE NEGATIVE (NEGATIVE); UROBILINOGEN,URINE 0.2 E.U./dL (0.2-1.0)
[2023-10-21] MEDS: diazePAM 5 MG/ML MDV IV ONE (21:59)
[2023-10-21] MEDS: diazePAM 5 MG/ML MDV ONE ×2 (22:00→22:01)
[2023-10-21] MEDS: HYDROmorphone 2 MG/ML Syringe IVPUSH SCH (23:16)
[2023-10-22] MEDS: HYDROmorphone 2 MG/ML Syringe ONE (10:22)
== END 2023-10-21 23:26 | disposition home or self-care (01) ==
LOC: LB.ED 20:35
DX: E83.59 Other disorders of calcium metabolism (principal); N29 Other disorders of kidney and ureter in diseases classified elsewhere; K21.9 Gastro-esophageal reflux disease without esophagitis; Z90.710 Acquired absence of both cervix and uterus; Z79.899 Other long term (current) drug therapy
CPT/HCPCS: 74176; 81003; 96374; 96375; 99284; J1170; J1885; J2405; J3360

== ENCOUNTER 2023-11-26 19:36 | Emergency (ER) | payer BC, OTHER ==
[2023-11-26] MEDS ORDERED: Sodium Chloride 0.9% 10 ML Syringe FLUSH PRN (20:17)
[2023-11-26 20:26] LABS: APPEARANCE,URINE CLEAR (CLEAR); COLOR,URINE YELLOW; KETONES,URINE TRACE mg/dL (NEGATIVE); PROTEIN,URINE NEGATIVE (NEGATIVE); UROBILINOGEN,URINE 0.2 E.U./dL (0.2-1.0)
[2023-11-26 20:27] LABS: BILIRUBIN,URINE NEGATIVE (NEGATIVE); GLUCOSE,URINE NEGATIVE (NEGATIVE); LEUKOCYTE ESTERASE,URINE NEGATIVE (NEGATIVE); NITRITE,URINE NEGATIVE (NEGATIVE); OCCULT BLOOD,URINE NEGATIVE (NEGATIVE)
[2023-11-26] MEDS: Ondansetron 4 MG/2 ML SDV IVPUSH ONE (20:32)
[2023-11-26] MEDS: Ketorolac 30 MG/ML SDV IVPUSH ONE (20:34)
[2023-11-26] MEDS: HYDROmorphone 2 MG/ML Syringe IVPUSH ONE (20:36)
[2023-11-26] MEDS: Tamsulosin 0.4 MG Cap.ER PO ONE (20:43)
[2023-11-26] MEDS: Ketorolac 30 MG/ML SDV ONE (21:55)
[2023-11-26] MEDS: Ondansetron 4 MG/2 ML SDV ONE (21:56)
[2023-11-26] MEDS: HYDROmorphone 2 MG/ML Syringe ONE (21:56)
[2023-11-27 00:02] VITALS: BP 127/62; PULSE 73
== END 2023-11-26 23:00 | disposition home or self-care (01) ==
LOC: LB.ED 19:36
DX: E83.59 Other disorders of calcium metabolism (principal); N29 Other disorders of kidney and ureter in diseases classified elsewhere; F11.10 Opioid abuse, uncomplicated; K21.9 Gastro-esophageal reflux disease without esophagitis; F17.210 Nicotine dependence, cigarettes, uncomplicated; Z86.16 Personal history of COVID-19; Z90.710 Acquired absence of both cervix and uterus; Z79.899 Other long term (current) drug therapy
CPT/HCPCS: 74176; 81003; 96374; 96375; 96376; 99284; A9270; J1885; J2405

== ENCOUNTER 2024-03-06 16:17 | Emergency (ER) | payer BC ==
[2024-03-06] MEDS ORDERED: Sodium Chloride 0.9% 10 ML Syringe FLUSH PRN (17:16)
[2024-03-06] MEDS: Ketorolac 15 MG/ML SDV IVPUSH ONE (17:25)
[2024-03-06 17:27] LABS: BASOPHILS ABSOLUTE AUTO 0.05 K/uL (0.02-0.10); BASOPHILS PERCENT AUTO 0.4 % (0.0-0.5); EOSINOPHILS ABSOLUTE AUTO 0.14 K/uL (0.04-0.40); EOSINOPHILS PERCENT AUTO 1.2 % (1.0-5.0); HEMATOCRIT 39.7 % (37.0-47.0); HEMOGLOBIN 13.4 g/dL (11.5-16.5); LYMPHOCYTES PERCENT AUTO 25.9 % (20.0-40.0); MEAN CORPUSCULAR HEMOGLOBIN 28.1 pg (27.0-32.0); MEAN CORPUSCULAR HGB CONC 33.8 g/dL (31.0-35.0); MEAN CORPUSCULAR VOLUME 83 fL (76-96); MEAN PLATELET VOLUME 9.3 fL (6.0-10.0); MONOCYTES ABSOLUTE AUTO 0.82 K/uL (0.20-0.80); MONOCYTES PERCENT AUTO 7.1 % (3.0-10.0); NEUTROPHILS ABSOLUTE AUTO 7.58 K/uL (2.00-7.50); NEUTROPHILS PERCENT AUTO 65.4 % (45.0-70.0); PLATELET COUNT,PLT 286 K/uL (150-500); RED BLOOD CELL COUNT 4.77 M/uL (3.80-5.80); RED CELL DISTRIBUTION WIDTH 14.5 % (11.0-16.0); WHITE BLOOD CELL COUNT,WBC 11.6 K/uL (4.0-11.0)
[2024-03-06 17:37] LABS: APPEARANCE,URINE CLEAR (CLEAR); BILIRUBIN,URINE NEGATIVE (NEGATIVE); COLOR,URINE YELLOW; GLUCOSE,URINE NEGATIVE (NEGATIVE); KETONES,URINE NEGATIVE (NEGATIVE); LEUKOCYTE ESTERASE,URINE NEGATIVE (NEGATIVE); NITRITE,URINE NEGATIVE (NEGATIVE); OCCULT BLOOD,URINE NEGATIVE (NEGATIVE); PH,URINE 6.5 (5.0-8.0); PROTEIN,URINE NEGATIVE (NEGATIVE); UROBILINOGEN,URINE 0.2 E.U./dL (0.2-1.0)
[2024-03-06] MEDS: Sodium Chloride 0.9% 1,000 ML IV SCH (17:40)
[2024-03-06 17:45] LABS: ALBUMIN 3.5 g/dL (3.4-5.0); ANION GAP 12.7 mmol/L (5.0-15.0); BILIRUBIN TOTAL 0.2 mg/dL (0.0-1.0); BUN/CREATININE RATIO 9.4 (6-25); CALCIUM 8.8 mg/dL (8.5-10.1); CARBON DIOXIDE,CO2 28.5 mmol/L (21.0-32.0); CREATININE 1.17 mg/dL (0.55-1.02); EST CRCL DRUG DOSING (CG) 67.15 mL/min; POTASSIUM,K 4.2 mmol/L (3.5-5.1)
[2024-03-06 19:11] VITALS: BP 126/70; PULSE 65
== END 2024-03-06 19:05 | disposition home or self-care (01) ==
LOC: LB.ED 16:17
DX: R10.9 Unspecified abdominal pain (principal); F17.210 Nicotine dependence, cigarettes, uncomplicated; Z90.710 Acquired absence of both cervix and uterus; Z79.899 Other long term (current) drug therapy
CPT/HCPCS: 36415; 74176; 80053; 81003; 85025; 96374; 99284; 99284-25; J1885; J7030

== ENCOUNTER 2024-03-13 16:02 | Emergency (ER) | payer BC ==
[2024-03-13] MEDS: Ondansetron 4 MG Tab.DIS PO ONE (17:13)
[2024-03-13] MEDS: SUMAtriptan 6 MG/0.5 ML SDV SUBCUT ONE (17:13)
[2024-03-13] MEDS: Ketorolac 15 MG/ML SDV IM ONE (18:06)
[2024-03-13] MEDS: Orphenadrine 60 MG/2 ML Inj IM ONE (18:06)
[2024-03-13 18:38] VITALS: BP 140/76; PULSE 64
== END 2024-03-13 18:27 | disposition home or self-care (01) ==
LOC: LB.ED 16:02
DX: G44.209 Tension-type headache, unspecified, not intractable (principal); Z79.899 Other long term (current) drug therapy; Z86.73 Personal history of transient ischemic attack (TIA), and cerebral infarction without residual deficits
CPT/HCPCS: 96372; 99283; J1885; J2360; J3030; Q0162

== ENCOUNTER 2024-04-02 07:22 | Emergency (ER) | payer BC ==
[2024-04-02 07:54] VITALS: PULSE 76
[2024-04-02] MEDS: Lidocaine 1% with EPINEPHrine 1:100,000 20 ML MDV INJECT ONE (08:09)
[2024-04-02 08:12] VITALS: BP 138/73
== END 2024-04-02 08:18 | disposition home or self-care (01) ==
LOC: LB.ED 07:22
DX: K08.89 Other specified disorders of teeth and supporting structures (principal); K21.9 Gastro-esophageal reflux disease without esophagitis; F17.210 Nicotine dependence, cigarettes, uncomplicated; Z79.899 Other long term (current) drug therapy; Z90.710 Acquired absence of both cervix and uterus
CPT/HCPCS: 99282

== ENCOUNTER 2024-07-11 19:24 | Emergency (ER) | payer BC ==
[2024-07-11] MEDS ORDERED: Sodium Chloride 0.9% 10 ML Syringe FLUSH PRN (19:46)
[2024-07-11] MEDS: Sodium Chloride 0.9% 1,000 ML IV ONE (19:49)
[2024-07-11 20:02] LABS: BASOPHILS ABSOLUTE AUTO 0.05 K/uL (0.02-0.10); BASOPHILS PERCENT AUTO 0.4 % (0.0-0.5); EOSINOPHILS ABSOLUTE AUTO 0.21 K/uL (0.04-0.40); EOSINOPHILS PERCENT AUTO 1.5 % (1.0-5.0); HEMATOCRIT 38.9 % (37.0-47.0); LYMPHOCYTES ABSOLUTE AUTO 3.83 K/uL (1.50-4.00); LYMPHOCYTES PERCENT AUTO 27.4 % (20.0-40.0); MEAN CORPUSCULAR HEMOGLOBIN 27.7 pg (27.0-32.0); MEAN CORPUSCULAR HGB CONC 33.4 g/dL (31.0-35.0); MEAN CORPUSCULAR VOLUME 83 fL (76-96); MEAN PLATELET VOLUME 9.5 fL (6.0-10.0); MONOCYTES ABSOLUTE AUTO 0.88 K/uL (0.20-0.80); MONOCYTES PERCENT AUTO 6.3 % (3.0-10.0); NEUTROPHILS ABSOLUTE AUTO 9.02 K/uL (2.00-7.50); NEUTROPHILS PERCENT AUTO 64.4 % (45.0-70.0); PLATELET COUNT,PLT 269 K/uL (150-500); RED BLOOD CELL COUNT 4.69 M/uL (3.80-5.80); RED CELL DISTRIBUTION WIDTH 15.3 % (11.0-16.0)
[2024-07-11 20:04] LABS: APPEARANCE,URINE CLEAR (CLEAR); COLOR,URINE YELLOW
[2024-07-11 20:05] LABS: BILIRUBIN,URINE NEGATIVE (NEGATIVE); GLUCOSE,URINE NEGATIVE (NEGATIVE); KETONES,URINE NEGATIVE (NEGATIVE); LEUKOCYTE ESTERASE,URINE NEGATIVE (NEGATIVE); NITRITE,URINE NEGATIVE (NEGATIVE); OCCULT BLOOD,URINE NEGATIVE (NEGATIVE); PROTEIN,URINE NEGATIVE (NEGATIVE); UROBILINOGEN,URINE 0.2 E.U./dL (0.2-1.0)
[2024-07-11 20:18] LABS: ALBUMIN 3.5 g/dL (3.4-5.0); ANION GAP 13.1 mmol/L (5.0-15.0); BILIRUBIN TOTAL 0.3 mg/dL (0.0-1.0); BUN/CREATININE RATIO 9.2 (6-25); CARBON DIOXIDE,CO2 26.3 mmol/L (21.0-32.0); CREATININE 1.09 mg/dL (0.55-1.02); EST CRCL DRUG DOSING (CG) 72.08 mL/min; POTASSIUM,K 4.4 mmol/L (3.5-5.1)
[2024-07-11] MEDS: cefTRIAXone 1 GM in Sodium Chloride 0.9% 50 ML IV ONE (20:58)
[2024-07-11] MEDS: Ketorolac 15 MG/ML SDV IVPUSH ONE (21:05)
[2024-07-11 21:56] VITALS: BP 129/67; PULSE 65
== END 2024-07-11 22:55 | disposition home or self-care (01) ==
LOC: LB.ED 19:24
DX: N13.2 Hydronephrosis with renal and ureteral calculous obstruction (principal); K21.9 Gastro-esophageal reflux disease without esophagitis; Z90.710 Acquired absence of both cervix and uterus; Z79.899 Other long term (current) drug therapy
CPT/HCPCS: 36415; 74176; 80053; 81003; 85025; 96365; 96375; 99284; 99284-25; J0696; J1885; J7030

== ENCOUNTER 2024-08-20 11:20 | Emergency (ER) | payer BC ==
[2024-08-20 12:12] VITALS: BP 112/65; PULSE 67
== END 2024-08-20 12:00 | disposition home or self-care (01) ==
LOC: LB.ED 11:20
DX: M25.532 Pain in left wrist (principal); X58.XXXA Exposure to other specified factors, initial encounter
CPT/HCPCS: 99283

== ENCOUNTER 2025-01-05 17:17 | Emergency (ER) | payer BC ==
[2025-01-05] MEDS ORDERED: Sodium Chloride 0.9% 10 ML Syringe FLUSH PRN (17:28)
[2025-01-05 17:29] LABS: APPEARANCE,URINE CLEAR (CLEAR); GLUCOSE,URINE NEGATIVE (NEGATIVE); OCCULT BLOOD,URINE TRACE-INTACT (NEGATIVE)
[2025-01-05 17:34] LABS: SQUAMOUS EPITHELIAL CELLS,UR OCCASIONAL /HPF
[2025-01-05] MEDS: Ondansetron 4 MG/2 ML SDV IVPUSH ONE (17:42)
[2025-01-05 17:43] LABS: BASOPHILS ABSOLUTE AUTO 0.04 K/uL (0.02-0.10); BASOPHILS PERCENT AUTO 0.3 % (0.0-0.5); EOSINOPHILS ABSOLUTE AUTO 0.18 K/uL (0.04-0.40); EOSINOPHILS PERCENT AUTO 1.5 % (1.0-5.0); LYMPHOCYTES ABSOLUTE AUTO 4.46 K/uL (1.50-4.00); LYMPHOCYTES PERCENT AUTO 36.4 % (20.0-40.0); MEAN PLATELET VOLUME 9.3 fL (6.0-10.0); MONOCYTES ABSOLUTE AUTO 0.88 K/uL (0.20-0.80); MONOCYTES PERCENT AUTO 7.2 % (3.0-10.0); NEUTROPHILS ABSOLUTE AUTO 6.69 K/uL (2.00-7.50); NEUTROPHILS PERCENT AUTO 54.6 % (45.0-70.0); PLATELET COUNT,PLT 280 K/uL (150-500); RED BLOOD CELL COUNT 4.62 M/uL (3.80-5.80); RED CELL DISTRIBUTION WIDTH 15.1 % (11.0-16.0); WHITE BLOOD CELL COUNT,WBC 12.3 K/uL (4.0-11.0)
[2025-01-05] MEDS: Ketorolac 15 MG/ML SDV IVPUSH ONE (17:43)
[2025-01-05 18:06] LABS: A/G RATIO 1.0 (0.8-2.0); ALANINE AMINOTRANSFERASE,ALT 23.0 U/L (12-78); ASPARTATE AMNIOTRANSFERASE,AST 12.0 U/L (15-37); BILIRUBIN TOTAL 0.2 mg/dL (0.0-1.0); BLOOD UREA NITROGEN,BUN 11.0 mg/dL (8-26); CARBON DIOXIDE,CO2 26.8 mmol/L (21.0-32.0); CHLORIDE,CL 106.0 mmol/L (98-107); CREATININE 0.96 mg/dL (0.55-1.02); EST CRCL DRUG DOSING (CG) 81.84 mL/min; ESTIMATED GFR 74.0 mL/min (>60); GLUCOSE RANDOM 107.0 mg/dL (74-100); POTASSIUM,K 4.1 mmol/L (3.5-5.1); PROTEIN TOTAL,TP 6.9 g/dL (6.4-8.2); SODIUM,NA 139.0 mmol/L (136-145)
[2025-01-05 18:37] VITALS: BP 128/70; PULSE 66
== END 2025-01-05 18:45 | disposition home or self-care (01) ==
LOC: LB.ED 17:17
DX: N13.2 Hydronephrosis with renal and ureteral calculous obstruction (principal); N39.0 Urinary tract infection, site not specified; K21.9 Gastro-esophageal reflux disease without esophagitis; Z90.710 Acquired absence of both cervix and uterus; Z88.5 Allergy status to narcotic agent; Z79.899 Other long term (current) drug therapy
CPT/HCPCS: 36415; 74176; 80053; 81001; 85025; 87086; 96365; 96375; 99284; 99284-25; J0696; J1885; J2405; J7030

== ENCOUNTER 2025-01-23 18:42 | Emergency (ER) | payer BC ==
[2025-01-23] MEDS ORDERED: Sodium Chloride 0.9% 10 ML Syringe FLUSH PRN (19:30)
[2025-01-23] MEDS: Ketorolac 15 MG/ML SDV IVPUSH ONE (19:36)
[2025-01-23] MEDS: diphenhydrAMINE 50 MG/ML SDV IVPUSH ONE (19:38)
[2025-01-23] MEDS: Ondansetron 4 MG/2 ML SDV IVPUSH ONE (20:47)
[2025-01-23 21:17] VITALS: BP 119/66; PULSE 70
== END 2025-01-23 21:02 | disposition home or self-care (01) ==
LOC: LB.ED 18:42
DX: G43.909 Migraine, unspecified, not intractable, without status migrainosus (principal); K21.9 Gastro-esophageal reflux disease without esophagitis; F17.200 Nicotine dependence, unspecified, uncomplicated; Z90.710 Acquired absence of both cervix and uterus; Z88.5 Allergy status to narcotic agent; Z79.899 Other long term (current) drug therapy
CPT/HCPCS: 70450; 96374; 96375; 99283; A9270; J1171; J1200; J1885; J2405; J2765; J7030; 99284